=== PATIENT | female | born 1950 | race Caucasian/White ===

== ENCOUNTER → 2017-12-31 07:45 | Outpatient (CLI) | payer MEDICARE, SELFPAY ==
[2017-12-31 08:18] LABS: Alanine Aminotransferase 41 U/L (12-78); Albumin Level 3.9 gm/dL (3.4-5.0); Albumin/Globulin Ratio 1.1 (1.1-1.8); Alkaline Phosphatase 70 U/L (46-116); Anion Gap 8.9 mEq/L (5-15); Aspartate Amino Transferase 20 U/L (15-37); Bilirubin,Total 0.9 mg/dL (0.2-1.0); Blood Urea Nitrogen 17 mg/dL (7-18); Calcium 9.7 mg/dL (8.5-10.1); Carbon Dioxide 31 mmol/L (21.0-32.0); Chloride 105 mmol/L (98-107); Chol/HDL Ratio 2.3 (1-3.5); Cholesterol 126 mg/dL (140-200); Creatinine,Serum 0.96 mg/dL (0.55-1.02); Estimated Glomerular Filt Rate 58 ml/min (>60); GFR (African American) 70 ML/MIN (>60); Globulin 3.4 gm/dl (1.3-3.2); Glucose 101 mg/dL (74-106); HDL Cholesterol 56 mg/dL (29-89); LDL Cholesterol 52 mg/dL (0-130); Potassium 3.9 mmoL/L (3.5-5.1); Sodium 141 mmol/L (136-145); Total Protein,Serum 7.3 gm/dL (6.4-8.2); Triglycerides 90 mg/dL (30-200); VLDL Cholesterol 18 mg/dL (0-40)
[2017-12-31 09:12] LABS: Basophils % 0.7 % (0.1-2.0); Eosinophils # 0.2 K/mm3 (0.0-0.4); Hematocrit 43.3 % (37.0-47.0); Hemoglobin 13.8 g/dL (12.2-16.2); Lymphocytes # 0.8 K/mm3 (0.7-4.5); Lymphocytes % 19.6 K/mm3 (10-50); Mean Corpuscular HGB Conc 31.9 g/dL (31.8-35.4); Mean Corpuscular Volume 100.1 fl (81-99); Mean Platelet Volume 7.4 fl (7.4-10.4); Monocytes # 0.4 K/mm3 (0.1-1.0); Neutrophils # 2.6 K/mm3 (1.8-7.8); Neutrophils % 66.7 % (37.0-80.0); Platelet Count 209 K/mm3 (142-424); Red Blood Count 4.32 M/mm3 (4.20-5.40); Red Cell Distribution Width 13.4 % (11.5-17.5); White Blood Count 3.9 K/mm3 (4.8-10.8)
[2017-12-31 12:51] LABS: Hemoglobin A1C 6.6 % (0.0-7.0)
[2018-01-03 06:20] LABS: ALT (SGPT) P5P 31 IU/L (0-40); Alpha 2-Macroglobulins, Qn 429 mg/dL (110-276); Apolipoprotein A-1 161 mg/dL (116-209); Bilirubin, Total 0.6 mg/dL (0.0-1.2); Fibrosis Score 0.54 (0.00-0.21); GGT 29 IU/L (0-60); Haptoglobin 181 mg/dL (34-200); Necroinflammat Activity Grade A0-A1 (.); Necroinflammat Activity Score 0.21 (0.00-0.17)
== END ==
PROVIDERS: Visit Provider Nurse Practitioner Acute Care
DX: R94.5 Abnormal results of liver function studies (principal); Z79.899 Other long term (current) drug therapy; E11.9 Type 2 diabetes mellitus without complications
CPT/HCPCS: 36415; 80053; 80061; 83036; 85025

== ENCOUNTER → 2018-01-12 10:51 | Outpatient (POV) | payer MEDICARE, SELFPAY | PROVIDERS: Visit Provider Nurse Practitioner Acute Care | DX: Z00.00 Encounter for general adult medical examination without abnormal findings (principal) ==

== ENCOUNTER → 2018-04-29 09:16 | Outpatient (CLI) | payer MEDICARE, SELFPAY ==
[2018-04-29 11:02] LABS: Basophils % 0.9 % (0.1-2.0); Eosinophils # 0.1 K/mm3 (0.0-0.4); Eosinophils % 3.5 % (0.1-12.0); Hematocrit 45.4 % (37.0-47.0); Hemoglobin 14.3 g/dL (12.2-16.2); Lymphocytes # 0.8 K/mm3 (0.7-4.5); Lymphocytes % 20.6 K/mm3 (10-50); Mean Corpuscular HGB Conc 31.5 g/dL (31.8-35.4); Mean Corpuscular Hemoglobin 31.9 pg (27.0-31.2); Mean Corpuscular Volume 101.3 fl (81-99); Mean Platelet Volume 7.5 fl (7.4-10.4); Monocytes # 0.3 K/mm3 (0.1-1.0); Monocytes % 8.4 % (1.7-9.3); Neutrophils # 2.6 K/mm3 (1.8-7.8); Neutrophils % 66.5 % (37.0-80.0); Platelet Count 241 K/mm3 (142-424); Red Blood Count 4.48 M/mm3 (4.20-5.40); Red Cell Distribution Width 13.6 % (11.5-17.5); White Blood Count 3.9 K/mm3 (4.8-10.8)
[2018-04-29 11:28] LABS: Alanine Aminotransferase 34 U/L (12-78); Albumin Level 4.1 gm/dL (3.4-5.0); Albumin/Globulin Ratio 1.4 (1.1-1.8); Alkaline Phosphatase 62 U/L (46-116); Aspartate Amino Transferase 23 U/L (15-37); Blood Urea Nitrogen 18 mg/dL (7-18); Calcium 9.6 mg/dL (8.5-10.1); Carbon Dioxide 27 mmol/L (21.0-32.0); Chloride 106 mmol/L (98-107); Creatinine,Serum 0.88 mg/dL (0.55-1.02); Estimated Glomerular Filt Rate 64 ml/min (>60); GFR (African American) 78 ML/MIN (>60); Globulin 2.9 gm/dl (1.3-3.2); Glucose 93 mg/dL (74-106); Sodium 142 mmol/L (136-145)
== END ==
PROVIDERS: Visit Provider Nurse Practitioner Acute Care
DX: R94.5 Abnormal results of liver function studies (principal)
CPT/HCPCS: 36415; 80053; 85025

== ENCOUNTER → 2018-07-13 08:59 | Outpatient (POV) | payer MEDICARE, SELFPAY | PROVIDERS: Visit Provider Nurse Practitioner Acute Care | DX: Z00.00 Encounter for general adult medical examination without abnormal findings (principal) ==

== ENCOUNTER → 2018-10-29 07:24 | Outpatient (CLI) | payer MEDICARE, SELFPAY ==
[2018-10-29 07:29] LABS: Microscopic, Urine URINE MICROSCOPIC (MICROSCOPIC)
[2018-10-29 07:52] LABS: Basophils % 0.7 % (0.1-2.0); Eosinophils # 0.2 K/mm3 (0.0-0.4); Eosinophils % 5.4 % (0.1-12.0); Hematocrit 40.9 % (37.0-47.0); Hemoglobin 13.2 g/dL (12.2-16.2); Lymphocytes # 1.1 K/mm3 (0.7-4.5); Lymphocytes % 23.5 % (10-50); Mean Corpuscular HGB Conc 32.2 g/dL (31.8-35.4); Mean Corpuscular Volume 102.3 fl (81-99); Mean Platelet Volume 7.1 fl (7.4-10.4); Monocytes # 0.4 K/mm3 (0.1-1.0); Monocytes % 8.2 % (1.7-9.3); Neutrophils # 2.8 K/mm3 (1.8-7.8); Neutrophils % 62.2 % (37.0-80.0); Platelet Count 233 K/mm3 (142-424); Red Cell Distribution Width 13.6 % (11.5-17.5); White Blood Count 4.6 K/mm3 (4.8-10.8)
[2018-10-29 08:02] LABS: Appearance,Urine SL CLOUDY (Clear); Bilirubin,Urine Negative (Negative); Blood, Urine Negative (Negative); Color,Urine YELLOW (Yellow); Glucose,Urine (UA) Negative (Negative); Ketones,Urine Negative (Negative); Leukocyte Esterase,Urine 1+ (Negative); Nitrate,Urine Negative (Negative); PH,Urine 5.5 (5.0-8.5); Protein,Urine Negative (Negative); Specific Gravity, Urine 1.025 (1.005-1.030); Urobilinogen,Urine 0.2 EU/dl (0.2)
[2018-10-29 08:42] LABS: Squamous Epithelial Cell,Urine Occasional #/hpf (0-5); WBC,Urine 20-50 #/hpf (0-3)
[2018-10-29 08:43] LABS: Bacteria,Urine Trace /lpf
[2018-10-29 09:12] LABS: Hemoglobin A1C 6.6 % (0.0-7.0)
[2018-10-29 09:23] LABS: Alanine Aminotransferase 27 U/L (12-78); Albumin Level 3.7 gm/dL (3.4-5.0); Albumin/Globulin Ratio 1.3 (1.1-1.8); Alkaline Phosphatase 67 U/L (46-116); Anion Gap 13.8 mEq/L (5-15); Aspartate Amino Transferase 16 U/L (15-37); Bilirubin,Total 0.7 mg/dL (0.2-1.0); Blood Urea Nitrogen 17 mg/dL (7-18); Calcium 9.3 mg/dL (8.5-10.1); Carbon Dioxide 27 mmol/L (21.0-32.0); Chloride 108 mmol/L (98-107); Chol/HDL Ratio 2.4 (1-3.5); Cholesterol 154 mg/dL (140-200); Estimated Glomerular Filt Rate 55 ml/min (>60); Free T4 (Free Thyroxine) 0.82 ng/dl (0.76-1.46); GFR (African American) 67 ML/MIN (>60); Globulin 2.8 gm/dl (1.3-3.2); Glucose 94 mg/dL (74-106); HDL Cholesterol 63 mg/dL (29-89); LDL Cholesterol 77 mg/dL (0-130); Potassium 3.8 mmoL/L (3.5-5.1); Sodium 145 mmol/L (136-145); Thyroid Stimulating Hormone 2.93 uIU/ml (0.358-3.740); Total Protein,Serum 6.5 gm/dL (6.4-8.2); Triglycerides 71 mg/dL (30-200); VLDL Cholesterol 14 mg/dL (0-40)
[2018-10-31 10:54] LABS: Vitamin D 25 Hydroxy 37.8 ng/mL (30.0-100.0)
[2018-10-31 10:56] LABS: Microalbumin, Urine 64.6 ug/mL (Not Estab.)
== END ==
PROVIDERS: Visit Provider Internal Medicine
DX: E03.9 Hypothyroidism, unspecified (principal); E11.9 Type 2 diabetes mellitus without complications; I10 Essential (primary) hypertension; E78.5 Hyperlipidemia, unspecified; E55.9 Vitamin D deficiency, unspecified; R82.90 Unspecified abnormal findings in urine; Z79.84 Long term (current) use of oral hypoglycemic drugs
CPT/HCPCS: 36415; 80053; 80061; 81001; 82043; 82652; 83036; 84436; 84439; 84443; 85025; 87086; 87088; 87186

== ENCOUNTER → 2018-12-17 08:50 | Outpatient (CLI) | payer MEDICARE, SELFPAY ==
[2018-12-17 09:37] LABS: Basophils % 0.6 % (0.1-2.0); Eosinophils # 0.2 K/mm3 (0.0-0.4); Eosinophils % 4.1 % (0.1-12.0); Hematocrit 43.2 % (37.0-47.0); Lymphocytes # 0.8 K/mm3 (0.7-4.5); Lymphocytes % 20.7 % (10-50); Mean Corpuscular HGB Conc 32.3 g/dL (31.8-35.4); Mean Corpuscular Hemoglobin 32.7 pg (27.0-31.2); Mean Corpuscular Volume 101.2 fl (81-99); Mean Platelet Volume 6.9 fl (7.4-10.4); Monocytes # 0.3 K/mm3 (0.1-1.0); Monocytes % 8.8 % (1.7-9.3); Neutrophils # 2.5 K/mm3 (1.8-7.8); Neutrophils % 65.8 % (37.0-80.0); Platelet Count 221 K/mm3 (142-424); Red Blood Count 4.27 M/mm3 (4.20-5.40); Red Cell Distribution Width 14.1 % (11.5-17.5); White Blood Count 3.8 K/mm3 (4.8-10.8)
[2018-12-17 11:12] LABS: Anion Gap 14.4 mEq/L (5-15); Blood Urea Nitrogen 19 mg/dL (7-18); Carbon Dioxide 28 mmol/L (21.0-32.0); Chloride 106 mmol/L (98-107); Creatinine,Serum 0.89 mg/dL (0.55-1.02); Estimated Glomerular Filt Rate 63 ml/min (>60); GFR (African American) 76 ML/MIN (>60); Glucose 100 mg/dL (74-106); Potassium 4.4 mmoL/L (3.5-5.1); Sodium 144 mmol/L (136-145)
[2018-12-17 11:26] LABS: Hemoglobin A1C 6.6 % (0.0-7.0)
== END ==
PROVIDERS: Visit Provider Internal Medicine
DX: Z01.818 Encounter for other preprocedural examination (principal); E11.9 Type 2 diabetes mellitus without complications; I10 Essential (primary) hypertension; Z79.84 Long term (current) use of oral hypoglycemic drugs
CPT/HCPCS: 36415; 80048; 83036; 85025

== ENCOUNTER → 2019-01-11 09:29 | Outpatient (POV) | payer MEDICARE, SELFPAY | PROVIDERS: Visit Provider Nurse Practitioner Acute Care | DX: Z00.00 Encounter for general adult medical examination without abnormal findings (principal) ==

== ENCOUNTER → 2019-06-21 07:21 | Outpatient (CLI) | payer MEDICARE, SELFPAY ==
[2019-06-21 07:26] LABS: Microscopic, Urine URINE MICROSCOPIC (MICROSCOPIC)
[2019-06-21 07:58] LABS: Appearance,Urine CLEAR (Clear); Bilirubin,Urine Negative (Negative); Blood, Urine TRACE-I (Negative); Color,Urine YELLOW (Yellow); Glucose,Urine (UA) Negative (Negative); Ketones,Urine Negative (Negative); Leukocyte Esterase,Urine TRACE (Negative); Nitrate,Urine Negative (Negative); Protein,Urine Negative (Negative); Specific Gravity, Urine 1.025 (1.005-1.030); Urobilinogen,Urine 0.2 EU/dl (0.2)
[2019-06-21 08:31] LABS: Bacteria,Urine 1+ /lpf; RBC,Urine Occasional #/hpf (0-3)
[2019-06-21 08:33] LABS: Basophils % 0.5 % (0.1-2.0); Eosinophils # 0.2 K/mm3 (0.0-0.4); Eosinophils % 3.9 % (0.1-12.0); Hematocrit 40.3 % (37.0-47.0); Hemoglobin 12.7 g/dL (12.2-16.2); Lymphocytes # 1.2 K/mm3 (0.7-4.5); Lymphocytes % 27.6 % (10-50); Mean Corpuscular HGB Conc 31.5 g/dL (31.8-35.4); Mean Corpuscular Hemoglobin 32.4 pg (27.0-31.2); Mean Corpuscular Volume 102.9 fl (81-99); Mean Platelet Volume 7.2 fl (7.4-10.4); Monocytes # 0.4 K/mm3 (0.1-1.0); Monocytes % 8.9 % (1.7-9.3); Neutrophils # 2.6 K/mm3 (1.8-7.8); Neutrophils % 59.1 % (37.0-80.0); Platelet Count 220 K/mm3 (142-424); Red Blood Count 3.92 M/mm3 (4.20-5.40); Red Cell Distribution Width 13.6 % (11.5-17.5); White Blood Count 4.4 K/mm3 (4.8-10.8)
[2019-06-21 11:04] LABS: Hemoglobin A1C 6.5 % (0.0-7.0)
[2019-06-21 17:33] LABS: Alanine Aminotransferase 32 U/L (12-78); Albumin/Globulin Ratio 1.5 (1.1-1.8); Alkaline Phosphatase 54 U/L (46-116); Anion Gap 12.9 mEq/L (5-15); Aspartate Amino Transferase 20 U/L (15-37); Bilirubin,Total 0.9 mg/dL (0.2-1.0); Blood Urea Nitrogen 22 mg/dL (7-18); Calcium 9.9 mg/dL (8.5-10.1); Carbon Dioxide 27 mmol/L (21.0-32.0); Chloride 108 mmol/L (98-107); Chol/HDL Ratio 2.7 (1-3.5); Cholesterol 131 mg/dL (140-200); Creatinine,Serum 0.87 mg/dL (0.55-1.02); Estimated Glomerular Filt Rate 65 ml/min (>60); Free T4 (Free Thyroxine) 0.87 ng/dl (0.76-1.46); GFR (African American) 78 ML/MIN (>60); Globulin 2.6 gm/dl (1.3-3.2); Glucose 88 mg/dL (74-106); HDL Cholesterol 49 mg/dL (29-89); LDL Cholesterol 56 mg/dL (0-130); Potassium 3.9 mmoL/L (3.5-5.1); Sodium 144 mmol/L (136-145); Thyroid Stimulating Hormone 4.22 uIU/ml (0.358-3.740); Total Protein,Serum 6.6 gm/dL (6.4-8.2); Triglycerides 129 mg/dL (30-200); VLDL Cholesterol 26 mg/dL (0-40)
[2019-06-22 06:56] LABS: Vitamin D 25 Hydroxy 45.6 ng/mL (30.0-100.0)
[2019-06-23 00:28] LABS: Microalbumin, Urine 7.5 ug/mL (Not Estab.)
== END ==
PROVIDERS: Visit Provider Internal Medicine
DX: I10 Essential (primary) hypertension (principal); E11.9 Type 2 diabetes mellitus without complications; E04.9 Nontoxic goiter, unspecified; E78.5 Hyperlipidemia, unspecified; R94.5 Abnormal results of liver function studies; Z79.84 Long term (current) use of oral hypoglycemic drugs; D72.819 Decreased white blood cell count, unspecified
CPT/HCPCS: 36415; 80053; 80061; 81001; 82043; 82652; 83036; 84439; 84443; 85025; 87086

== ENCOUNTER → 2019-12-24 08:48 | Outpatient (CLI) | payer MEDICARE, SELFPAY ==
[2019-12-24 08:55] LABS: Microscopic, Urine URINE MICROSCOPIC (MICROSCOPIC)
[2019-12-24 09:37] LABS: Basophils % 0.9 % (0.1-2.0); Eosinophils # 0.2 K/mm3 (0.0-0.4); Eosinophils % 4.7 % (0.1-12.0); Hematocrit 41.3 % (37.0-47.0); Hemoglobin 13.3 g/dL (12.2-16.2); Lymphocytes # 0.8 K/mm3 (0.7-4.5); Lymphocytes % 21.6 % (10-50); Mean Corpuscular HGB Conc 32.1 g/dL (31.8-35.4); Mean Corpuscular Hemoglobin 32.8 pg (27.0-31.2); Mean Platelet Volume 8.1 fl (7.4-10.4); Monocytes # 0.3 K/mm3 (0.1-1.0); Monocytes % 9.2 % (1.7-9.3); Neutrophils # 2.3 K/mm3 (1.8-7.8); Neutrophils % 63.7 % (37.0-80.0); Platelet Count 220 K/mm3 (142-424); Red Blood Count 4.05 M/mm3 (4.20-5.40); Red Cell Distribution Width 13.5 % (11.5-17.5); White Blood Count 3.6 K/mm3 (4.8-10.8)
[2019-12-24 11:15] LABS: Appearance,Urine CLEAR (Clear); Bilirubin,Urine Negative (Negative); Blood, Urine Negative (Negative); Color,Urine YELLOW (Yellow); Glucose,Urine (UA) Negative (Negative); Ketones,Urine Negative (Negative); Leukocyte Esterase,Urine TRACE (Negative); Nitrate,Urine Negative (Negative); Protein,Urine Negative (Negative); Specific Gravity, Urine >= 1.030 (1.005-1.030); Urobilinogen,Urine 0.2 EU/dl (0.2)
[2019-12-24 11:23] LABS: Amorphous Sediment,Urine 1+ /lpf; Calcium Oxalate Crystals,Urine 1+ /lpf; Transitional Epi Cells,Urine OCC #/lpf (0-3)
[2019-12-24 11:33] LABS: Alanine Aminotransferase 22 U/L (12-78); Albumin Level 4.3 g/dl (3.5-5.0); Albumin/Globulin Ratio 1.8 (1.1-1.8); Alkaline Phosphatase 59 U/L (38-126); Anion Gap 11.4 mEq/L (5-15); Aspartate Amino Transferase 29 U/L (14-36); Blood Urea Nitrogen 21 mg/dl (7-17); Calcium 10.2 mg/dl (8.4-10.2); Carbon Dioxide 28 mmol/L (22.0-30.0); Chloride 104 mmol/L (98-107); Chol/HDL Ratio 2.6 (1-3.5); Cholesterol 134 mg/dl (140-200); Estimated Glomerular Filt Rate 62 ml/min (>60); GFR (African American) 75 ML/MIN (>60); Globulin 2.4 g/dL (1.3-3.2); Glucose 96 mg/dl (74-100); HDL Cholesterol 51 mg/dl (40-60); Potassium 4.4 mmoL/L (3.5-5.1); Sodium 139 mmol/L (136-145); Total Protein,Serum 6.7 g/dl (6.3-8.2); Triglycerides 107 mg/dl (30-150); VLDL Cholesterol 21 mg/dL (0-40)
[2019-12-24 11:44] LABS: Direct LDL Cholesterol 70.58 mg/dL (100-129)
[2019-12-24 12:03] LABS: Thyroid Stimulating Hormone 3.32 uIU/mL (0.465-4.68)
[2019-12-24 13:33] LABS: Hemoglobin A1C 6.5 % (4.0-6.0)
[2019-12-25 16:06] LABS: Microalbumin, Urine 13.3 ug/mL (Not Estab.)
== END ==
PROVIDERS: Visit Provider Internal Medicine
DX: E11.9 Type 2 diabetes mellitus without complications (principal); I10 Essential (primary) hypertension; E03.9 Hypothyroidism, unspecified; E66.9 Obesity, unspecified; R94.5 Abnormal results of liver function studies; K75.4 Autoimmune hepatitis; K21.9 Gastro-esophageal reflux disease without esophagitis; F45.8 Other somatoform disorders; D72.819 Decreased white blood cell count, unspecified; Z79.84 Long term (current) use of oral hypoglycemic drugs
CPT/HCPCS: 36415; 80053; 80061; 81001; 82043; 83036; 84439; 84443; 85025; 87086; 87088; 87186

== ENCOUNTER → 2020-06-12 09:15 | Outpatient (CLI) | payer MEDICARE, SELFPAY ==
[2020-06-12 09:47] LABS: Basophils % 0.5 % (0.1-2.0); Eosinophils # 0.2 K/mm3 (0.0-0.4); Eosinophils % 3.2 % (0.1-12.0); Hematocrit 41.2 % (37.0-47.0); Lymphocytes # 0.8 K/mm3 (0.7-4.5); Lymphocytes % 18.2 % (10-50); Mean Corpuscular Hemoglobin 34.4 pg (27.0-31.2); Mean Corpuscular Volume 101.3 fl (81-99); Mean Platelet Volume 7.6 fl (7.4-10.4); Monocytes # 0.4 K/mm3 (0.1-1.0); Monocytes % 8.3 % (1.7-9.3); Neutrophils # 3.2 K/mm3 (1.8-7.8); Neutrophils % 69.8 % (37.0-80.0); Platelet Count 188 K/mm3 (142-424); Red Blood Count 4.07 M/mm3 (4.20-5.40); Red Cell Distribution Width 13.9 % (11.5-17.5); White Blood Count 4.5 K/mm3 (4.8-10.8)
[2020-06-12 10:28] LABS: Alanine Aminotransferase 26 U/L (12-78); Albumin Level 4.3 g/dl (3.5-5.0); Albumin/Globulin Ratio 1.7 (1.1-1.8); Alkaline Phosphatase 70 U/L (38-126); Anion Gap 13.9 mEq/L (5-15); Aspartate Amino Transferase 31 U/L (14-36); Bilirubin,Total 1.4 mg/dl (0.2-1.3); Blood Urea Nitrogen 17 mg/dl (7-17); Carbon Dioxide 27 mmol/L (22.0-30.0); Chloride 105 mmol/L (98-107); Estimated Glomerular Filt Rate 71 ml/min (>60); GFR (African American) 86 ML/MIN (>60); Globulin 2.5 g/dL (1.3-3.2); Glucose 106 mg/dl (74-100); Potassium 3.9 mmoL/L (3.5-5.1); Sodium 142 mmol/L (136-145); Total Protein,Serum 6.8 g/dl (6.3-8.2)
[2020-06-12 11:38] LABS: Hemoglobin A1C 6.7 % (4.0-6.0)
== END ==
PROVIDERS: Internal Medicine Gastroenterology; Visit Provider Internal Medicine
DX: E11.9 Type 2 diabetes mellitus without complications (principal); I10 Essential (primary) hypertension; E78.5 Hyperlipidemia, unspecified; E66.9 Obesity, unspecified; R94.5 Abnormal results of liver function studies; K21.9 Gastro-esophageal reflux disease without esophagitis
CPT/HCPCS: 36415; 80053; 83036; 85025

== ENCOUNTER → 2020-12-12 08:30 | Outpatient (CLI) | payer MEDICARE, SELFPAY ==
[2020-12-12 08:50] LABS: Basophils % 0.8 % (0.1-2.0); Eosinophils # 0.3 K/mm3 (0.0-0.4); Eosinophils % 6.2 % (0.1-12.0); Hematocrit 43.8 % (37.0-47.0); Hemoglobin 14.2 g/dL (12.2-16.2); Lymphocytes # 0.9 K/mm3 (0.7-4.5); Lymphocytes % 19.4 % (10-50); Mean Corpuscular HGB Conc 32.4 g/dL (31.8-35.4); Mean Corpuscular Hemoglobin 32.7 pg (27.0-31.2); Mean Platelet Volume 7.5 fl (7.4-10.4); Monocytes # 0.4 K/mm3 (0.1-1.0); Monocytes % 9.2 % (1.7-9.3); Neutrophils # 2.8 K/mm3 (1.8-7.8); Neutrophils % 64.3 % (37.0-80.0); Platelet Count 219 K/mm3 (142-424); Red Blood Count 4.34 M/mm3 (4.20-5.40); Red Cell Distribution Width 13.6 % (11.5-17.5); White Blood Count 4.4 K/mm3 (4.8-10.8)
[2020-12-12 09:51] LABS: Chloride 106 mmol/L (98-107)
[2020-12-12 09:52] LABS: Sodium 141 mmol/L (136-145)
[2020-12-12 09:54] LABS: Alanine Aminotransferase 26 U/L (12-78); Albumin Level 4.3 g/dl (3.5-5.0); Albumin/Globulin Ratio 1.6 (1.1-1.8); Alkaline Phosphatase 64 U/L (38-126); Aspartate Amino Transferase 29 U/L (14-36); Bilirubin,Total 1.1 mg/dl (0.2-1.3); Blood Urea Nitrogen 21 mg/dl (7-17); Carbon Dioxide 29 mmol/L (22.0-30.0); Estimated Glomerular Filt Rate 62 ml/min (>60); GFR (African American) 75 ML/MIN (>60); Globulin 2.7 g/dL (1.3-3.2)
[2020-12-12 09:55] LABS: Calcium 10.3 mg/dl (8.4-10.2); Glucose 117 mg/dl (74-100)
== END ==
PROVIDERS: Visit Provider Nurse Practitioner Family
DX: K75.4 Autoimmune hepatitis (principal); K21.9 Gastro-esophageal reflux disease without esophagitis; K22.4 Dyskinesia of esophagus; R14.0 Abdominal distension (gaseous)
CPT/HCPCS: 36415; 80053; 85025

== ENCOUNTER → 2021-01-01 09:54 | Outpatient (POV) | payer MEDICARE, SELFPAY | PROVIDERS: Visit Provider Nurse Practitioner Family | DX: Z00.00 Encounter for general adult medical examination without abnormal findings (principal) ==

== ENCOUNTER → 2021-01-05 08:39 | Outpatient (CLI) | payer MEDICARE, SELFPAY ==
[2021-01-05 08:49] LABS: Microscopic, Urine URINE MICROSCOPIC (MICROSCOPIC)
[2021-01-05 09:19] LABS: Appearance,Urine CLEAR (Clear); Bilirubin,Urine Negative (Negative); Blood, Urine Negative (Negative); Color,Urine YELLOW (Yellow); Glucose,Urine (UA) Negative (Negative); Ketones,Urine Negative (Negative); Leukocyte Esterase,Urine 1+ (Negative); Nitrate,Urine Negative (Negative); PH,Urine 5.5 (5.0-8.5); Protein,Urine Negative (Negative); Specific Gravity, Urine >= 1.030 (1.005-1.030); Urobilinogen,Urine 0.2 EU/dl (0.2)
[2021-01-05 09:39] LABS: Bacteria,Urine 1+ /lpf
[2021-01-05 10:09] LABS: Hemoglobin A1C 7.3 % (4.0-6.0)
[2021-01-05 10:32] LABS: 25-OH Vitamin D, Total 47.4 ng/mL (30-100)
[2021-01-05 11:57] LABS: Free T4 (Free Thyroxine) 0.92 ng/dl (0.78-2.19)
[2021-01-05 12:17] LABS: Thyroid Stimulating Hormone 4.27 uIU/mL (0.465-4.68)
[2021-01-05 12:52] LABS: Vitamin B12 778 pg/mL (239-931)
[2021-01-05 12:56] LABS: Folate > 20.00 ng/mL
[2021-01-09 08:37] LABS: Cholesterol 148 mg/dl (140-200); HDL Cholesterol 50 mg/dl (40-60); Triglycerides 174 mg/dl (30-150); VLDL Cholesterol 35 mg/dL (0-40)
[2021-01-09 08:47] LABS: Direct LDL Cholesterol 66.66 mg/dL (100-129)
== END ==
PROVIDERS: Visit Provider Internal Medicine
DX: E03.9 Hypothyroidism, unspecified (principal); E11.9 Type 2 diabetes mellitus without complications; E78.5 Hyperlipidemia, unspecified; E55.9 Vitamin D deficiency, unspecified; G62.9 Polyneuropathy, unspecified; R82.90 Unspecified abnormal findings in urine; Z79.84 Long term (current) use of oral hypoglycemic drugs
CPT/HCPCS: 36415; 80061; 81001; 82043; 82306; 82607; 82746; 83036; 84439; 84443; 87086; 87088; 87186

== ENCOUNTER → 2021-05-23 08:18 | Outpatient (CLI) | payer MEDICARE, SELFPAY | PROVIDERS: Visit Provider Internal Medicine Gastroenterology | DX: Z01.812 Encounter for preprocedural laboratory examination (principal); Z20.822 Contact with and (suspected) exposure to COVID-19; Z12.11 Encounter for screening for malignant neoplasm of colon | CPT/HCPCS: U0003 ==

== ENCOUNTER 2021-05-25 07:26 | Day surgery (SDC) | payer MEDICARE, SELFPAY ==
[2021-05-22 09:57] VITALS: BMI 30.9
[2021-05-25] VITALS (7 sets, daily range): BP systolic 118–158; BP diastolic 74–92; PULSE 66–90; RESP 16–20; TEMP 36.1; O2SAT 92–99
[2021-05-25 08:03] LABS: POC Glucose,Bedside 126 (70-110)
--- NOTE | 2021-05-25 08:30 | HMH.PROC ---
[facility] Procedure Note Procedure Note:: Colonoscopy Procedure Report: Colonoscopy with cold snare polypectomy Endoscopist: Chris Scott II, MD Referring physician: Jimi Mcdermott MD Date of Procedure: May 25, 2021 Equipment: Olympus 190 variable stiffness pediatric colonoscope Sedation: MAC sedation Indication: Mrs. Velasquez is a 70-year-old female who is here for follow-up screening/surveillance colonoscopy. The patient does have a personal history of colon polyps. She had a colonoscopy in May 2016 and had an adenomatous polyp removed. The patient does have a history of intermittent esophageal spasm. She also reports some bowel frequency usually in the mornings over 2 hours. She starts out with a firm bowel movement and over a couple of hours she goes 3-4 times and this may end in looser bowel movement. The patient reports no rectal bleeding or mucus. She does get some occasional lower abdominal discomfort and at the same time she has some back discomfort. She has had an intentional weight loss of 14 pounds. She reports no blood or mucus with her bowel movements. She reports no family history of colon cancer. The patient does have a history of autoimmune hepatitis (stage II fibrosis) and some NAFLD (nonalcoholic fatty liver disease). She is on low-dose prednisone (5 mg) with excellent control. She also takes vitamin E and alpha lipoic acid. Procedure: Prior to the procedure, a history and physical exam was performed, and patient's medications and allergies were reviewed. The risks, benefits and alternatives of the sedation and procedure were discussed with the patient. All questions were answered and informed consent was obtained. The patient was brought to the procedure room. Patient identification and proposed procedure were verified by the physician and the nurse. The patient was placed in a left lateral decubitus position and the scope was passed under direct vision. Throughout the procedure, the patient's blood pressure, pulse, and oxygen saturations were monitored continuously. The colonoscopy was accomplished without difficulty. The patient tolerated the procedure well. Findings: On digital rectal examination there was normal rectal tone. There were no external hemorrhoids. The colonoscope was introduced through the anal canal to the rectum and advanced to the cecum. The ileocecal valve and appendiceal orifice were identified. The scope was advanced a short distance into the ileum which appeared grossly normal. The scope was then withdrawn into the colon. There were 5 colon polyps (cecum x2 (2 and 4 mm), descending x1 (3 mm) and sigmoid x2 (3 and 3 mm)) which were all removed via cold snare polypectomy. The remaining cecum, ascending, transverse, descending, sigmoid and rectum were grossly normal. There were no other mucosal abnormalities identified. Upon retroflexion within the rectum there were grade 1-2 internal hemorrhoids.The preparation was excellent throughout with Sheffield Preparation Score of 9. The cecal time was 12 minutes. Impression: 1. Colonic polyps x5 2. Grade 1-2 internal hemorrhoids Plan: I will follow up the polyp pathology and recommend repeat colonoscopy again in 3-5 years based upon the polyp histology. I would encourage bulking fiber supplementation on a long-term daily maintenance basis.
--- NOTE | 2021-05-25 08:47 | HMH.ANESCL ---
[facility] Anesthesia Checklist - Structural Data Admitted From: Home Planned Operative Procedure/s: colonoscopy Consent for Planned Operative Procedure(s) Verified: Yes - Airway Assessment C-Spine Mobility Assessed: Yes TMJ Mobility Assessed: Yes Dentition: Good Dentition - Neurological Assessment Level of Consciousness: Awake, Alert, Appropriate - Anesthesia Plan Anesthesia Risk discussed: Yes Anesthesia Plan: Verified ASA Class: III Anesthesia Type: MAC [facility] History I have reviewed the patient's past medical history: Yes Medical History: Reports:: Diabetes Mellitus Type 2, Hyperlipidemia, Hypertension Denies:: Cancer, Diabetes Mellitus Type 1, Internal Pacemaker, MRSA, Seizures *Have you ever received a pneumonia vaccine?: Yes *Have you received a flu vaccine this season?: Yes Anesthesia experience/problems:: none Laterality Cases: Bilateral: Carpal Tunnel Release, Cataract Other Surgeries: No: Pacemaker Amputation: No Fractures: No - *Social History Last grade of school completed: Some college Smoking Status: Never smoker Alcohol Intake: current Alcohol Intake Frequency:: holidays/special occasions only Substance Use Type: denies use *Occupational Status:: retired Housing: house Household Members: spouse *Travel in the last 8 weeks: None Family Hx:: Cancer, Diabetes, Heart Attack, Hyperlipidemia, Hypertension, Stroke
== END 2021-05-25 09:55 | disposition home or self-care (01) ==
LOC: OUTP 07:29
PROVIDERS: PCP Internal Medicine; Visit Provider Internal Medicine Gastroenterology
PROC: 0DJD8ZZ Inspection of Lower Intestinal Tract, Via Natural or Artificial Opening Endoscopic (ICD-10-PCS; CPT 45378; principal; 2021-05-25 08:30)
DX: Z12.11 Encounter for screening for malignant neoplasm of colon (principal); K63.5 Polyp of colon; K64.0 First degree hemorrhoids; K75.4 Autoimmune hepatitis; K76.0 Fatty (change of) liver, not elsewhere classified; E11.9 Type 2 diabetes mellitus without complications; E78.5 Hyperlipidemia, unspecified; I10 Essential (primary) hypertension; Z79.899 Other long term (current) drug therapy; Z80.9 Family history of malignant neoplasm, unspecified; Z82.3 Family history of stroke; Z83.438 Family history of other disorder of lipoprotein metabolism and other lipidemia; Z82.49 Family history of ischemic heart disease and other diseases of the circulatory system
CPT/HCPCS: 45385; 82962; 88305

== ENCOUNTER → 2021-07-17 08:01 | Outpatient (CLI) | payer MEDICARE, SELFPAY ==
[2021-07-17 08:46] LABS: Basophils % 0.3 % (0.1-2.0); Eosinophils # 0.1 K/mm3 (0.0-0.4); Hematocrit 46.9 % (37.0-47.0); Hemoglobin 15.3 g/dL (12.2-16.2); Lymphocytes # 0.9 K/mm3 (0.7-4.5); Lymphocytes % 7.9 % (10-50); Mean Corpuscular HGB Conc 32.5 g/dL (31.8-35.4); Mean Corpuscular Hemoglobin 33.5 pg (27.0-31.2); Mean Corpuscular Volume 103.1 fl (81-99); Mean Platelet Volume 7.6 fl (7.4-10.4); Monocytes # 0.6 K/mm3 (0.1-1.0); Monocytes % 5.2 % (1.7-9.3); Neutrophils # 9.4 K/mm3 (1.8-7.8); Neutrophils % 85.6 % (37.0-80.0); Platelet Count 323 K/mm3 (142-424); Red Blood Count 4.55 M/mm3 (4.20-5.40); Red Cell Distribution Width 13.2 % (11.5-17.5); White Blood Count 10.9 K/mm3 (4.8-10.8)
[2021-07-17 08:50] LABS: MANUAL DIFFERENTIAL MANUAL DIFFERENTIAL (MANUAL DIFF)
[2021-07-17 09:13] LABS: Alanine Aminotransferase 41 U/L (12-78); Albumin Level 4.4 g/dl (3.5-5.0); Albumin/Globulin Ratio 1.6 (1.1-1.8); Alkaline Phosphatase 80 U/L (38-126); Anion Gap 13.8 mEq/L (5-15); Aspartate Amino Transferase 36 U/L (14-36); Bilirubin,Total 1.3 mg/dl (0.2-1.3); Blood Urea Nitrogen 25 mg/dl (7-17); Calcium 10.7 mg/dl (8.4-10.2); Carbon Dioxide 27 mmol/L (22.0-30.0); Chloride 100 mmol/L (98-107); Estimated Glomerular Filt Rate 71 ml/min (>60); GFR (African American) 86 ML/MIN (>60); Globulin 2.7 g/dL (1.3-3.2); Glucose 129 mg/dl (74-100); Potassium 4.8 mmoL/L (3.5-5.1); Sodium 136 mmol/L (136-145); Total Protein,Serum 7.1 g/dl (6.3-8.2)
[2021-07-17 09:34] LABS: Lymphocytes % 10 % (10-50); Monocytes % 8 % (2-9); Neutrophils % 82 % (42-76); Total Cells Counted 100
[2021-07-17 09:35] LABS: Macrocytosis 1+; Platelet Estimate Normal
[2021-07-17 10:41] LABS: Hemoglobin A1C 6.8 % (4.0-6.0)
== END ==
PROVIDERS: Internal Medicine; Visit Provider Nurse Practitioner Family
DX: K75.4 Autoimmune hepatitis (principal); K22.4 Dyskinesia of esophagus; K30 Functional dyspepsia; K76.0 Fatty (change of) liver, not elsewhere classified; E11.9 Type 2 diabetes mellitus without complications; Z79.84 Long term (current) use of oral hypoglycemic drugs
CPT/HCPCS: 36415; 80053; 83036; 85007; 85025

== ENCOUNTER 2022-02-17 09:52 | Emergency (ER) | payer MEDICARE, SELFPAY ==
[2022-02-17 09:53] VITALS: BP 122/75; PULSE 75; RESP 16; TEMP 36.8; O2SAT 96; BMI 29.9
[2022-02-17 10:00] VITALS: BP 122/75; PULSE 75; RESP 16; TEMP 36.8; O2SAT 96; BMI 29.9
--- NOTE | 2022-02-17 10:02 | XR_ITS ---
PROCEDURE INFORMATION: Exam: XR Left Hand Exam date and time: 02/17/2022 10:18 AM Age: 71 years old Clinical indication: Pain; Finger(s); Left; Additional info: Injured pinky finger TECHNIQUE: Imaging protocol: XR Left hand. Views: 3 or more views. COMPARISON: No relevant prior studies available. FINDINGS: Bones/joints: Acute minimally displaced intra-articular fracture involving the proximal radial aspect of the 5th proximal phalanx. Degenerative change. Soft tissues: No radiopaque foreign body. IMPRESSION: Acute minimally displaced intra-articular fracture involving the proximal radial aspect of the 5th proximal phalanx.
--- NOTE | 2022-02-17 10:16 | HMH.EDUTC ---
[facility] Disposition Clinical Impression: Fracture of distal phalanx of finger of left hand Disposition: Home, Self-Care Condition on Discharge: Good Instructions: DI for Finger Fracture Additional Instructions: follow up with ortho rest Ice with cold pack for 20 minutes remove may repeat for comfort every hour splint for support and swelling no less in the shower. Be sure not too tight but not to lose either Elevate with hand above your heart as much as possible to help reduce swelling and therefore pain Ibuprofen every 6 hours as needed for pain or inflammation. If needs something more you can take Tylenol every 4 hours as needed as long as her primary care has told he was okayed for you to take both. If improving any do not need to follow-up you can bring begin exercising 2-3 weeks after injury. Follow-up immediately if new or worsening symptoms or no noticeable improvement over the next 3-5 days. Referrals: Jimi Mcdermott [Primary Care Provider] - Steve Mojica MD [Staff Physician] - Time of Disposition: 10:40 Medical Decision Making - Nathan Inquiry Pt receiving controlled substance: No Vital Signs: 02/17/22 09:53 02/17/22 10:00 Temperature 98.3 F 98.3 F Temperature Source Oral Oral Pulse Rate [Radial] 75 75 Respiratory Rate 16 16 Blood Pressure [Right Arm] 122/75 122/75 Blood Pressure Mean [Right Arm] 90 90 Blood Pressure Source [Right Arm] Automatic Cuff Blood Pressure Position [Right Arm] Sitting Sitting 02 Sat by Pulse Oximetry 96 96 Oxygen Delivery Method Room Air Room Air Orders (Tests/Meds): ORDERS Category Date Time Status XR hand LT min 3V Stat Exams 02/17/22 10:02 Taken [facility] HPI - General Chief complaint: Urgent Treatment Center Stated complaint: left pinky finger pain Time Seen by Provider: 02/17/22 10:17 Mode of Arrival: Ambulatory Source of Information: Patient Limitations: No Limitations Description of Symptoms (Recalled from Triage Doc. by RN): pt reports injury to lt 5th finger yesterday, playing with dogs and his head hit her hand and injured finger. c/o pain, swelling, bruising. - History of Present Illness Provider Complaint: 71 yr old female presnts for left pinky pain playing with dogs and his head hit her hand and injured finger. c/o pain, swelling, bruising. - Related Data Home Medications Medication Instructions Recorded Confirmed Atorvastatin Calcium [Atorvastatin 20 mg PO DAILY 11/01/18 05/25/21 20mg Tab] Fluticasone Propionate [Flonase 2 spr NS DAILY 11/01/18 05/25/21 50mcg nasal spray 16gm] Metformin HCl 500 mg PO BID 11/01/18 05/25/21 Metoprolol Succinate 25 mg PO DAILY 11/01/18 05/25/21 Omeprazole [Omeprazole 40mg 40 mg PO DAILY 11/01/18 05/25/21 Capsule] lisinopriL [Lisinopril 2.5mg Tab] 2.5 mg PO DAILY 11/01/18 05/25/21 predniSONE [Prednisone 5mg 5 mg PO DAILY 11/01/18 05/25/21 Tab] Alpha Lipoic Acid 200 mg PO DAILY 05/22/21 05/25/21 Aspirin [Lo-Dose Aspirin EC] 81 mg PO DAILY 05/22/21 05/25/21 Calcium Carbonate/Vitamin D3 30 mg PO DAILY 05/22/21 05/25/21 [Calcium 500 mg Chewable Tablet] Cholecalciferol (Vitamin D3) 25 mcg PO DAILY 05/22/21 05/25/21 [Vitamin D3] L.acidoph,Paracasei, B.lactis 1 tab PO DAILY 05/22/21 05/25/21 [Probiotic] Multivitamin 1 each PO DAILY 05/22/21 05/25/21 Vitamin E Acid Succinate [Vitamin 180 mg PO DAILY 05/22/21 05/25/21 E 400 Unit Tab] flaxseed oiL [Flaxseed Oil] 1,000 mg PO DAILY 05/22/21 05/25/21 Allergies Allergy/AdvReac Type Severity Reaction Status Date / Time Cephalosporins Allergy Verified 05/22/21 09:34 meperidine [From Demerol] Allergy Verified 05/22/21 09:34 Sulfa (Sulfonamide Allergy Verified 05/22/21 09:34 Antibiotics) Tetracyclines Allergy Verified 05/22/21 09:34 [facility] History - Hepatitis A Screen Attestation statement:: This patient has been screened for Hepatitis A risk factors. I have reviewed the patient's past medical history: Yes Med
[2022-02-17 10:40] VITALS: BP 122/75; PULSE 75; RESP 16; TEMP 36.8; O2SAT 96
== END 2022-02-17 10:45 | disposition home or self-care (01) ==
PROVIDERS: Emergency Provider Nurse Practitioner Family; PCP Internal Medicine
DX: S62.637A Displaced fracture of distal phalanx of left little finger, initial encounter for closed fracture (principal); I10 Essential (primary) hypertension; E78.5 Hyperlipidemia, unspecified; E11.9 Type 2 diabetes mellitus without complications; Z79.51 Long term (current) use of inhaled steroids; Z79.52 Long term (current) use of systemic steroids; Z79.82 Long term (current) use of aspirin; Z88.2 Allergy status to sulfonamides; Z88.8 Allergy status to other drugs, medicaments and biological substances; Z82.49 Family history of ischemic heart disease and other diseases of the circulatory system; Z80.9 Family history of malignant neoplasm, unspecified; Z83.3 Family history of diabetes mellitus; Z83.438 Family history of other disorder of lipoprotein metabolism and other lipidemia
CPT/HCPCS: 29125; G0463; 73130; 99212

== ENCOUNTER → 2022-02-22 11:13 | Outpatient (CLI) | payer MEDICARE, SELFPAY ==
--- NOTE | 2022-02-22 11:17 | XR_ITS ---
FINAL REPORT CLINICAL HISTORY: F/U LT 5TH finger fx COMPARISON: February 17, 2022 FINDINGS: LEFT HAND 3 views were obtained. There is a nondisplaced fracture of the proximal radial aspect of the 5th proximal phalanx. The fracture appears stable. There is no significant callus formation. The joint spaces are intact. There is no soft tissue abnormality. IMPRESSION: Stable 5th proximal phalanx fracture. No new abnormality identified. Reviewed, Interpreted and Dictated by Fermin Cason III, MD Transcribed by Jyothi Oneal Authenticated by Fermin Cason III, MD on 02/22/2022 12:49:17 PM [facility]
== END ==
PROVIDERS: PCP Internal Medicine; Visit Provider Orthopaedic Surgery
DX: S62.619A Displaced fracture of proximal phalanx of unspecified finger, initial encounter for closed fracture (principal)
CPT/HCPCS: 73130

== ENCOUNTER → 2022-03-08 13:03 | Outpatient (CLI) | payer MEDICARE, SELFPAY ==
--- NOTE | 2022-03-08 13:08 | XR_ITS ---
FINAL REPORT CLINICAL HISTORY: f/u lt 5th finger fx COMPARISON: 02/22/2022 FINDINGS: LEFT HAND Three views demonstrate an oblique, intra-articular fracture through the lateral base of the 5th proximal phalanx. Fracture line is still visible and has not significantly changed. The visualized joint spaces are normally aligned. The soft tissues are unremarkable. IMPRESSION: No significant change in fracture of the base of the 5th proximal phalanx. Reviewed, Interpreted and Dictated by Jeffery Watkins MD Transcribed by Wendi Werner Authenticated by Jeffery Watkins MD on 03/08/2022 04:03:27 PM [facility]
== END ==
PROVIDERS: PCP Internal Medicine; Visit Provider Orthopaedic Surgery
DX: S62.637A Displaced fracture of distal phalanx of left little finger, initial encounter for closed fracture (principal)
CPT/HCPCS: 73130

== ENCOUNTER → 2022-03-29 10:42 | Outpatient (CLI) | payer MEDICARE, SELFPAY ==
--- NOTE | 2022-03-29 10:45 | XR_ITS ---
FINAL REPORT CLINICAL HISTORY: finger fx COMPARISON: March 08, 2022 FINDINGS: AP, lateral and oblique views of the right hand were obtained. There has been no significant interval change in the intra-articular fracture of the base of the 5th proximal phalanx. There is mild degenerative joint disease. The soft tissues are normal. IMPRESSION: No significant interval change in fracture of the base of the 5th proximal phalanx. Reviewed, Interpreted and Dictated by Anuja Feliciano MD Transcribed by Jyothi Oneal Authenticated by Anuja Feliciano MD on 03/29/2022 01:01:25 PM [facility]
== END ==
PROVIDERS: PCP Internal Medicine; Visit Provider Orthopaedic Surgery
DX: S62.647D Nondisplaced fracture of proximal phalanx of left little finger, subsequent encounter for fracture with routine healing (principal)
CPT/HCPCS: 73130

== ENCOUNTER → 2022-04-23 07:46 | Outpatient (CLI) | payer MEDICARE, SELFPAY ==
[2022-04-23 08:34] LABS: Microscopic, Urine URINE MICROSCOPIC (MICROSCOPIC)
[2022-04-23 08:57] LABS: Basophils % 0.7 % (0.1-2.0); Eosinophils # 0.2 K/mm3 (0.0-0.4); Eosinophils % 3.1 % (0.1-12.0); Hematocrit 42.7 % (37.0-47.0); Hemoglobin 13.8 g/dL (12.2-16.2); Lymphocytes # 0.6 K/mm3 (0.7-4.5); Lymphocytes % 9.7 % (10-50); Mean Corpuscular HGB Conc 32.3 g/dL (31.8-35.4); Mean Corpuscular Hemoglobin 34.1 pg (27.0-31.2); Mean Corpuscular Volume 105.4 fl (81-99); Mean Platelet Volume 7.9 fl (7.4-10.4); Monocytes # 0.4 K/mm3 (0.1-1.0); Monocytes % 7.1 % (1.7-9.3); Neutrophils # 4.7 K/mm3 (1.8-7.8); Neutrophils % 79.3 % (37.0-80.0); Platelet Count 199 K/mm3 (142-424); Red Blood Count 4.05 M/mm3 (4.20-5.40); Red Cell Distribution Width 14.1 % (11.5-17.5)
[2022-04-23 09:26] LABS: Chloride 106 mmol/L (98-107); Sodium 139 mmol/L (136-145)
[2022-04-23 09:29] LABS: Alanine Aminotransferase 28 U/L (12-78); Albumin Level 4.3 g/dl (3.5-5.0); Alkaline Phosphatase 63 U/L (38-126); Aspartate Amino Transferase 32 U/L (14-36); Bilirubin,Total 1.2 mg/dl (0.2-1.3); Blood Urea Nitrogen 17 mg/dl (7-17); Carbon Dioxide 27 mmol/L (22.0-30.0); Cholesterol 146 mg/dl (140-200); Estimated Glomerular Filt Rate 62 ml/min (>60); GFR (African American) 75 ML/MIN (>60); Globulin 2.2 g/dL (1.3-3.2); Total Protein,Serum 6.5 g/dl (6.3-8.2); Triglycerides 158 mg/dl (30-150); VLDL Cholesterol 32 mg/dL (0-40)
[2022-04-23 09:30] LABS: Calcium 10.1 mg/dl (8.4-10.2); Chol/HDL Ratio 2.8 (1-3.5); Glucose 113 mg/dl (74-100); HDL Cholesterol 52 mg/dl (40-60)
[2022-04-23 09:35] LABS: 25-OH Vitamin D, Total 51.7 ng/mL (30-100)
[2022-04-23 09:36] LABS: Free T4 (Free Thyroxine) 0.97 ng/dl (0.78-2.19)
[2022-04-23 09:41] LABS: Direct LDL Cholesterol 65.57 mg/dL (100-129)
[2022-04-23 09:57] LABS: Appearance,Urine CLEAR (Clear); Bilirubin,Urine Negative (Negative); Blood, Urine Negative (Negative); Color,Urine YELLOW (Yellow); Glucose,Urine (UA) Negative (Negative); Ketones,Urine Negative (Negative); Leukocyte Esterase,Urine 1+ (Negative); Nitrate,Urine POSITIVE (Negative); PH,Urine 5.5 (5.0-8.5); Protein,Urine Negative (Negative); Specific Gravity, Urine >= 1.030 (1.005-1.030); Urobilinogen,Urine 0.2 EU/dl (0.2)
[2022-04-23 10:00] LABS: Thyroid Stimulating Hormone 3.51 uIU/mL (0.465-4.68)
[2022-04-23 10:02] LABS: Hemoglobin A1C 6.5 % (4.0-6.0)
[2022-04-23 10:17] LABS: Bacteria,Urine 3+ /lpf; Squamous Epithelial Cell,Urine Occasional #/hpf (0-5)
[2022-04-23 22:24] LABS: Vitamin B12 797 pg/mL (239-931)
[2022-04-23 22:26] LABS: Folate > 20.00 ng/mL
== END ==
PROVIDERS: PCP Internal Medicine; Visit Provider Nurse Practitioner Family
DX: E78.5 Hyperlipidemia, unspecified (principal); E55.9 Vitamin D deficiency, unspecified; R73.09 Other abnormal glucose; E66.8 Other obesity; Z68.29 Body mass index [BMI] 29.0-29.9, adult; R82.90 Unspecified abnormal findings in urine
CPT/HCPCS: 36415; 80053; 80061; 81001; 82043; 82306; 82607; 82746; 83036; 84439; 84443; 85025; 87086; 87088; 87186

== ENCOUNTER 2022-04-27 02:11 | Emergency (ER) | payer MEDICARE, SELFPAY ==
[2022-04-27 02:13] VITALS: BP 133/51; PULSE 78; RESP 19; TEMP 37; O2SAT 95; BMI 29.7
--- NOTE | 2022-04-27 03:21 | HMH.EDGENADL ---
ED Disposition Clinical Impression: Nausea & vomiting Qualifiers: Vomiting type: unspecified Qualified Code(s): R11.2 - Nausea with vomiting, unspecified Disposition: Home, Self-Care Condition on Discharge: Good Instructions: DI for Diarrhea and Traveler's Diarrhea -- Adult, DI for Diarrhea and Traveler's Diarrhea -- Child, DI for Nausea -- Adult, DI for Nausea -- Child Referrals: Lane Mcdermott [Primary Care Provider] - - Critical Care Critical Care Time: No Attestation: On 04/27/22, the high probability of a clinically significant, sudden or life threatening deterioration of the following system(s) required my full and direct attention, intervention and personal management. The time I documented below is in addition to time spent performing reported procedures but includes the following listed in this critical care notation. Medical Decision Making - Medical Records Medical records reviewed: Yes: I reviewed the patient's medical records. - Nathan Inquiry Pt receiving controlled substance: No Vital Signs: 04/27/22 02:13 Temperature 98.6 F Temperature Source Oral Pulse Rate [Right] 78 Respiratory Rate 19 Blood Pressure [Right Arm] 133/51 L Blood Pressure Mean [Right Arm] 78 Blood Pressure Source [Right Arm] Automatic Cuff 02 Sat by Pulse Oximetry 95 Oxygen Delivery Method Room Air - Lab Data Lab results reviewed: Yes: I reviewed the patient's lab results. Lab Results 04/27/22 03:15: WBC 7.6, RBC 4.09 L, Hgb 13.9, Hct 44.1, MCV 107.8 H, MCH 34.0 H, MCHC 31.5 L, RDW 14.0, Plt Count 211, MPV 7.7, Neut % (Auto) 94.9 H, Lymph % (Auto) 0.8 L, [place] % (Auto) 2.7, Eos % (Auto) 1.1, Baso % (Auto) 0.5, Neut # (Auto) 7.3, Lymph # (Auto) 0.1 L, [place] # (Auto) 0.2, Eos # (Auto) 0.1, Baso # (Auto) 0.0, Total Counted 100, Neutrophils % (Manual) 89 H, Band Neutrophils % 9.0 H, Lymphocytes % (Manual) 1 L, Monocytes % (Manual) 1 L, Platelet Estimate Normal, Hypochromasia 1+, Macrocytosis 2+ 04/27/22 03:15: Sodium 137, Potassium 4.4, Chloride 105, Carbon Dioxide 27, Anion Gap 9.4, BUN 17, Creatinine 0.80, Estimated Creat Clear 66, Estimated GFR 71, Est GFR ( Amer) 86, Glucose 137 H, Calcium 9.9, Total Bilirubin 1.1, AST 43 H, ALT 31, Alkaline Phosphatase 73, Total Protein 6.7, Albumin 4.1, Globulin 2.6, Albumin/Globulin Ratio 1.6 04/27/22 03:15: Magnesium 1.7, Troponin I < 0.01 04/27/22 03:15: NT-Pro-B Natriuret Pep 96.8 04/27/22 03:15: Lactate 2.3 H 04/27/22 03:15: Lipase 100 04/27/22 04:13: VBG pH 7.32, VBG pCO2 45.3, VBG pO2 39.0, VBG HCO3 22.7 L, VBG Total CO2 24.0, VBG O2 Saturation 70.9 H, VBG Base Excess -3.5 L 04/27/22 06:30: Troponin I < 0.01 Result diagrams: 04/27/22 03:15 04/27/22 03:15 Orders (Tests/Meds): ED MEDICATIONS Generic Name Dose Route Start Last Admin Trade Name Freq PRN Reason Stop Dose Admin Lactated Ringer's 1,000 mls @ 999 mls/hr 04/27/22 04:15 04/27/22 04:09 Lactated Ringer's 1000 Ml Bag IV 04/27/22 05:15 999 mls/hr .Q1H1M JOJO Administration Discontinued Medications Generic Name Dose Route Start Last Admin Trade Name Freq PRN Reason Stop Dose Admin Acetaminophen 1,000 mg 04/27/22 06:01 04/27/22 06:23 Acetaminophen 500mg Tab PO 04/27/22 06:02 Not Given ONCE ONE Ibuprofen 400 mg 04/27/22 06:01 04/27/22 06:05 Ibuprofen 400 Mg Tablet PO 04/27/22 06:02 400 mg ONCE ONE Administration Ondansetron HCl 4 mg 04/27/22 04:02 04/27/22 04:09 Ondansetron 4mg/2ml Vial IV 04/27/22 04:03 4 mg ONCE ONE Administration ORDERS Category Date Time Status Troponin I Q3H Lab 04/27/22 10:15 Ordered UA [Urinalysis and Microscopic] Stat Lab 04/27/22 04:10 Ordered EKG Request [ECG Request by /Juanis] Stat Y 04/27/22 04:03 Ordered Medical Decision Narrative: Patient is a 71-year-old female presenting with chief complaint of nausea and vomiting since this evening. Differential diagnosis includes, but is not limited to, atypical ACS, viral gastroen
[2022-04-27 03:48] LABS: Basophils % 0.5 % (0.1-2.0); Eosinophils # 0.1 K/mm3 (0.0-0.4); Eosinophils % 1.1 % (0.1-12.0); Hematocrit 44.1 % (37.0-47.0); Hemoglobin 13.9 g/dL (12.2-16.2); Lymphocytes # 0.1 K/mm3 (0.7-4.5); Lymphocytes % 0.8 % (10-50); Mean Corpuscular HGB Conc 31.5 g/dL (31.8-35.4); Mean Corpuscular Volume 107.8 fl (81-99); Mean Platelet Volume 7.7 fl (7.4-10.4); Monocytes # 0.2 K/mm3 (0.1-1.0); Monocytes % 2.7 % (1.7-9.3); Neutrophils # 7.3 K/mm3 (1.8-7.8); Neutrophils % 94.9 % (37.0-80.0); Platelet Count 211 K/mm3 (142-424); Red Blood Count 4.09 M/mm3 (4.20-5.40); White Blood Count 7.6 K/mm3 (4.8-10.8)
[2022-04-27 03:51] LABS: MANUAL DIFFERENTIAL MANUAL DIFFERENTIAL (MANUAL DIFF)
[2022-04-27 03:56] LABS: Alanine Aminotransferase 31 U/L (12-78); Albumin Level 4.1 g/dl (3.5-5.0); Albumin/Globulin Ratio 1.6 (1.1-1.8); Alkaline Phosphatase 73 U/L (38-126); Anion Gap 9.4 mEq/L (5-15); Aspartate Amino Transferase 43 U/L (14-36); Bilirubin,Total 1.1 mg/dl (0.2-1.3); Blood Urea Nitrogen 17 mg/dl (7-17); Calcium 9.9 mg/dl (8.4-10.2); Carbon Dioxide 27 mmol/L (22.0-30.0); Chloride 105 mmol/L (98-107); Creatinine Clearance Estimated 66 mL/min (50-200); Estimated Glomerular Filt Rate 71 ml/min (>60); GFR (African American) 86 ML/MIN (>60); Globulin 2.6 g/dL (1.3-3.2); Glucose 137 mg/dl (74-100); Potassium 4.4 mmoL/L (3.5-5.1); Sodium 137 mmol/L (136-145); Total Protein,Serum 6.7 g/dl (6.3-8.2)
--- NOTE | 2022-04-27 04:03 | XR_ITS ---
PROCEDURE INFORMATION: Exam: XR Chest Exam date and time: 04/27/2022 4:05 AM Age: 71 years old Clinical indication: Cough and fever; Additional info: R/O pna TECHNIQUE: Imaging protocol: Radiologic exam of the chest. Views: 2 views. COMPARISON: No relevant prior studies available. FINDINGS: Lungs: Unremarkable. No consolidation. Pleural spaces: Unremarkable. No pleural effusion. No pneumothorax. Heart/Mediastinum: Unremarkable. No cardiomegaly. Bones/joints: Unremarkable. IMPRESSION: No acute findings.
[2022-04-27 04:14] LABS: VBG Base Excess -3.5 mmol/L (-2.4-2.3); VBG HCO3 22.7 mmol/L (23-30); VBG Oxygen Saturation 70.9 % (50-70); VBG PCO2 45.3 mmol/L (35-51); VBG PH 7.32 mmol/L (7.31-7.41)
[2022-04-27 04:16] LABS: Magnesium 1.7 mg/dl (1.6-2.3)
[2022-04-27 04:26] LABS: NT Pro Brain Natriuretic Pep. 96.8 pg/mL (0-125)
[2022-04-27 04:30] LABS: Lactic Acid 2.3 mmol/L (0.7-2.1)
[2022-04-27 04:31] LABS: Troponin I < 0.01 ng/ml (0.00-0.034)
[2022-04-27 04:34] LABS: Lymphocytes % 1 % (10-50); Monocytes % 1 % (2-9); Neutrophils % 89 % (42-76); Platelet Estimate Normal; Total Cells Counted 100
[2022-04-27 04:35] LABS: Hypochromasia 1+; Macrocytosis 2+
[2022-04-27 04:46] LABS: Lipase 100 U/L (23-300)
--- NOTE | 2022-04-27 05:40 | ECG_ITS ---
APPROVED REPORT Exam: Resting ECG HR:82 bpm ECG Measurements Heart Rate 82 AXES SC 197 P 37 QRSd 87 QRS 40 QT 357 T 23 QTc 395 Conclusion SINUS RHYTHM NONSPECIFIC T-WAVE ABNORMALITY BORDERLINE ECG UNCONFIRMED REPORT Electronically signed by : Philipp Ortega MD 04/27/2022 15:34:40
--- NOTE | 2022-04-27 06:39 | PC.NURSE ---
patient is currently resting in bed
[2022-04-27 07:09] LABS: Troponin I < 0.01 ng/ml (0.00-0.034)
[2022-04-27 07:50] VITALS: BP 123/74; PULSE 78; RESP 16; TEMP 36.8; O2SAT 98
[2022-04-27 08:05] LABS: Reflex Lactic Add Lactic Reflex
== END 2022-04-27 07:51 | disposition home or self-care (01) ==
PROVIDERS: Emergency Provider Emergency Medicine; PCP Pediatrics
DX: R11.2 Nausea with vomiting, unspecified (principal); R51.9 Headache, unspecified; Z87.440 Personal history of urinary (tract) infections
CPT/HCPCS: 71046; 80053; 82803; 83605; 83690; 83735; 83880; 84484; 85007; 85025; 93005; 96374; 99284; J2405

== ENCOUNTER 2022-04-30 11:00 | Outpatient (RCR) | payer MEDICARE, SELFPAY ==
--- NOTE | 2022-04-05 10:46 | HMH.OTOPEV ---
OT Inpatient Evaluation Rehab OT Outpatient Eval Start: 04/05/22 10:23 Freq: Status: Active Protocol: Document 04/05/22 10:23 RMARSHALL (Rec: 04/05/22 10:46 [facility] [id number]) Electronically Signed By Crys Hyman OT 04/05/22 10:23 Outpatient Therapy Subjective History Subjective History Pt is a 71 year old right hand dominant female who reports to therapy for initial evaluation to left small finger. Pt reports on February 15 she had an accident with her dog resulting in 5th proximal phalanx fx. Pt explains she was in a cast for 6 weeks and the cast was removed ~1 week ago. Pt does complain of a dull ache in the small finger intermittently. She demosntrates with slight decreased in strength and AROM at small finger. Pt will continue to be seen twice a week in order to address all small finger deficits. STG AROM MP Flex: 85 degrees PIP Flex: 90 degrees DIP flex: 60 degrees LTG AROM MP Flex: 90 degrees PIP Flex: 100 degrees DIP Flex: 60 degrees STG L hand gambling floor supervisor strength: 30lbs LTG L hand gambling floor supervisor strength 40 lbs Chief Complaint Pain,Stiff,Weakness,Decreased Information Technology Coordinator Strength Symptom Type Ache,Throb,Dull Symptoms Relieved By Rest/Positioning Symptoms Aggravated By Physical Activity,Lifting Prior Functional Limitations None Current Functional Limitations Reaching,Lifting,Housework, Sleeping,Recreation Activity Symptom Description Intermittent,Activity Dependent Level of pain today (0-10) 2 Pain scale - at its best (0-10) 0 Pain scale - at its worst (0-10) 4 Wrist/Hand Eval Finger Range of Motion Left Little Finger Finger Metacarpophalangeal Flexion 75 degrees Active Range of Motion (degrees) Finger Metacarpophalangeal Extension 0 degrees Active Range of Motion (degrees) Finger Proximal Interphalangeal Flexion 80 degrees Active Ra
== END 2022-04-30 11:05 | disposition home or self-care (01) ==
LOC: OT 11:00
PROVIDERS: PCP Internal Medicine; Visit Provider Orthopaedic Surgery
DX: S62.646D Nondisplaced fracture of proximal phalanx of right little finger, subsequent encounter for fracture with routine healing (principal)
CPT/HCPCS: 97010; 97014; 97035; 97110; 97140; 97166; G0283

== ENCOUNTER → 2022-05-10 09:00 | Outpatient (CLI) | payer MEDICARE, SELFPAY ==
--- NOTE | 2022-05-10 09:03 | XR_ITS ---
FINAL REPORT CLINICAL HISTORY: hand injury COMPARISON: 03/29/2022 FINDINGS: LEFT HAND Three views were obtained. Again identified is a fracture of the proximal radial aspect of the 5th proximal phalanx. Fracture extends to the joint. There is evidence of partial bony fusion from prior examination IMPRESSION: Fracture of the 5th proximal phalanx with partial bony fusion. Reviewed, Interpreted and Dictated by Fermin Cason III, MD Transcribed by Gianna Zhou Authenticated and [facility]
== END ==
PROVIDERS: PCP Internal Medicine; Visit Provider Orthopaedic Surgery
DX: S62.617A Displaced fracture of proximal phalanx of left little finger, initial encounter for closed fracture (principal)
CPT/HCPCS: 73130

== ENCOUNTER 2022-08-20 15:28 | Observation (INO) | payer MEDICARE, SELFPAY ==
--- NOTE | 2022-08-20 15:20 | ECG_ITS ---
APPROVED REPORT Exam: Resting ECG HR:70 bpm ECG Measurements Heart Rate 70 AXES VA 176 P -11 QRSd 88 QRS -16 QT 355 T -14 QTc 375 Conclusion SINUS RHYTHM MINIMAL ST DEPRESSION [0.025+ mV ST DEPRESSION] BORDERLINE ECG UNCONFIRMED REPORT Electronically signed by : Philipp Ortgea MD 08/20/2022 20:48:15
[2022-08-20 15:28] VITALS: BP 186/104; PULSE 76; RESP 18; TEMP 36.7; O2SAT 98; BMI 32.8
--- NOTE | 2022-08-20 15:51 | HMH.EDCP ---
Discharge Plan Disposition Patient Disposition: Admitted As Inpatient Condition: Fair Chief Complaint: Chest Pain Prescriptions Prescriptions: No Action metformin 500 MG tablet 500 mg PO BID atorvastatin 20 MG tablet 20 mg PO DAILY prednisone 5 MG tablet 5 mg PO DAILY omeprazole 40 MG capsule,delayed release(DR/EC) 40 mg PO DAILY metoprolol succinate 25 MG tablet extended release 24 hr 25 mg PO DAILY fluticasone propionate 120 SPR/BOT bottle 2 spr NS DAILY multivitamin 1 EACH tablet 1 each PO DAILY aspirin 81 MG tablet,delayed release (DR/EC) 81 mg PO DAILY flaxseed oil 1,000 MG capsule 1,000 mg PO DAILY calcium carbonate-vitamin D3 1 EACH tablet,chewable 30 mg PO DAILY alpha lipoic acid 200 MG capsule 200 mg PO DAILY L.acidoph, paracasei,B. lactis 1 EACH capsule 1 tab PO DAILY cholecalciferol (vitamin D3) 50 MCG capsule 25 mcg PO DAILY vitamin E succinate 400 UNIT tablet 180 mg PO DAILY losartan 25 MG tablet 25 mg PO DAILY Referrals Follow up/Referrals: Provider,Referral, [Referring] - See instructions Clinical Impressions Clinical Impression: Angina pectoris, unstable Discharge ED Provider: Dixon Jacinto Chest Pain HPI General Chief Complaint: Chest Pain Stated Complaint: chest pain Time Seen by Provider: 08/20/22 15:35 Mode of Arrival: Ambulatory Limitations: No Limitations Description of Symptoms (Recalled from ER Triage Doc. by RN): PT WITH C/O CHEST HEAVINESS SINCE FRIDAY History of Present Illness HPI narrative: Patient is a 71-year-old female with a past medical history of hyperlipidemia, carotid stenosis, anxiety who presents with concern for chest heaviness. She states that her symptoms started on Friday when she was coming over amount past. She says that she was nervous during that time and she felt her pulse in her neck and then felt it in her lips and started having a dull chest heaviness. She said this self resolved and it has not happened since. She went and saw her migraine physician today who recommended that she come in for evaluation with a chest heaviness. She currently denies any chest pain or shortness of breath. She says she does feel anxious. Denies any nausea or diaphoresis. Denies any symptoms in her shoulder or jaw Related Data Home Medications Medication Instructions Recorded Confirmed atorvastatin 20 mg tablet 20 mg PO DAILY Cholesterol 11/01/18 05/10/22 fluticasone propionate 50 2 spr intranasal DAILY allergies 11/01/18 05/10/22 mcg/actuation nasal spray,suspension metformin 500 mg tablet 500 mg PO BID dm 11/01/18 05/10/22 metoprolol succinate 25 mg 25 mg PO DAILY heart health 11/01/18 05/10/22 tablet,extended release 24 hr omeprazole 40 mg capsule,delayed 40 mg PO DAILY GERD 11/01/18 05/10/22 release prednisone 5 mg tablet 5 mg PO DAILY autoimmune hepatitis 11/01/18 05/10/22 L.acidoph, paracasei,B. lactis 10 1 tab PO DAILY Supplement 05/22/21 05/10/22 billion cell capsule alpha lipoic acid 200 mg capsule 200 mg PO DAILY Supplement 05/22/21 05/10/22 aspirin 81 mg tablet,delayed 81 mg PO DAILY heart healthy 05/22/21 05/10/22 release calcium carbonate 500 mg-vitamin 30 mg PO DAILY Supplement 05/22/21 05/10/22 D3 2.5 mcg (100 unit) chewable tablet cholecalciferol (vitamin D3) 50 25 mcg PO DAILY Supplement 05/22/21 05/10/22 mcg (2,000 unit) capsule flaxseed oil 1,000 mg capsule 1,000 mg PO DAILY Supplement 05/22/21 05/10/22 multivitamin 1 each PO DAILY Supplement 05/22/21 05/10/22 vitamin E succinate 268 mg (400 180 mg PO DAILY Supplement 05/22/21 05/10/22 unit) tablet losartan 25 mg tablet 25 mg PO DAILY htn 04/27/22 05/10/22 Allergies Allergy/AdvReac Type Severity Reaction Status Date / Time acetaminophen Allergy Hallucinati Verified 05/10/22 09:23 ng Cephalosporins Allergy Verified 05/10/22 09:23 meperidine [From De
--- NOTE | 2022-08-20 17:05 | XR_ITS ---
PROCEDURE INFORMATION: Exam: XR Chest Exam date and time: 08/20/2022 5:40 PM Age: 71 years old Clinical indication: Pain; Angina pectoris; Additional info: Chest pain TECHNIQUE: Imaging protocol: Radiologic exam of the chest. Views: 1 view. COMPARISON: CR XR CHEST 2V 04/27/2022 4:05 AM FINDINGS: Lungs: Unremarkable. No consolidation. Pleural spaces: Unremarkable. No pleural effusion. No pneumothorax. Heart/Mediastinum: Right paratracheal region calcified lymph nodes are unchanged. Normal heart size. Vasculature: Aortic tortuosity. Bones/joints: Unremarkable. IMPRESSION: No acute findings.
[2022-08-20 17:10] VITALS: PULSE 70; O2SAT 98
[2022-08-20 17:15] VITALS: PULSE 64; O2SAT 98
[2022-08-20 17:20] LABS: Basophils % 0.6 % (0.1-2.0); Eosinophils % 0.8 % (0.1-12.0); Hematocrit 44.3 % (37.0-47.0); Lymphocytes # 0.5 K/mm3 (0.7-4.5); Lymphocytes % 9.2 % (10-50); Mean Corpuscular HGB Conc 31.5 g/dL (31.8-35.4); Mean Corpuscular Hemoglobin 33.3 pg (27.0-31.2); Mean Corpuscular Volume 105.8 fl (81-99); Mean Platelet Volume 8.2 fl (7.4-10.4); Monocytes # 0.3 K/mm3 (0.1-1.0); Monocytes % 5.2 % (1.7-9.3); Neutrophils # 4.4 K/mm3 (1.8-7.8); Neutrophils % 84.2 % (37.0-80.0); Platelet Count 231 K/mm3 (142-424); Red Blood Count 4.19 M/mm3 (4.20-5.40); Red Cell Distribution Width 13.9 % (11.5-17.5); White Blood Count 5.2 K/mm3 (4.8-10.8)
[2022-08-20 17:22] LABS: Anion Gap 15.2 mEq/L (5-15); Blood Urea Nitrogen 17 mg/dl (7-17); Calcium 9.7 mg/dl (8.4-10.2); Carbon Dioxide 27 mmol/L (22.0-30.0); Chloride 102 mmol/L (98-107); Creatinine Clearance Estimated 68 mL/min (50-200); Estimated Glomerular Filt Rate 71 ml/min (>60); GFR (African American) 86 ML/MIN (>60); Glucose 122 mg/dl (74-100); Potassium 4.2 mmoL/L (3.5-5.1); Sodium 140 mmol/L (136-145)
--- NOTE | 2022-08-20 17:29 | PC.NURSE ---
RADIOLOGY DOING A PORT XRAY
[2022-08-20 17:34] LABS: Troponin I 0.18 ng/ml (0.00-0.034)
--- NOTE | 2022-08-20 18:13 | PC.NURSE ---
LAB CALLED FOR REPEAT TROP
--- NOTE | 2022-08-20 18:52 | PC.NURSE ---
PT ASSISTED TO BR AT THIS TIME. NO NEEDS VOICED
[2022-08-20 19:32] LABS: Troponin I 0.17 ng/ml (0.00-0.034)
--- NOTE | 2022-08-20 20:19 | PC.NURSE ---
DR SEYMOUR SPOKE WITH HOSPITIALIST FOR ADMISSION , HOUSE NOTIFIED
[2022-08-20 20:29] LABS: Coronavirus 19, PCR Not Detected (NotDetected); Influenza A, PCR Not Detected (NotDetected); Influenza B, PCR Not Detected (NotDetected)
[2022-08-20 20:53] VITALS: PULSE 65
--- NOTE | 2022-08-20 21:01 | EXP.HP ---
History of Present Illness *Admission Date: 08/20/22 *Reason for visit:: Chest pain/discomfort *History of present illness: Ms. Sahra Velasquez is a 71-year-old female with a past medical history of Diabetes, HTN, HL and DIANDRA. She presents to [facility] due to chest discomfort that she reports has been going on and off for 3 days duration. The patient was seen on initial evaluation in the ER. She reports that she was traveling 3 days ago and [place] traveling in [place], she reports that as she went back to sea [place] that she experienced some chest discomfort and the feeling of tightness in her chest, she reports that the symptoms were associated with SOA and pain in her jaw. She reports that the symptoms have came and went over the last 3 days. She reports that upon prompting by her family that she came into the ER for evaluation. In the ER, Cxray performed showed no Acute Cardiopulmonary findings, EKG showed NSR with rate of [address] segment elevation or depression. Troponin was elevated at 0.18 and 0.17. The patient will be admitted with initial impression Atypical Chest pain. Cardiology has been consulted to see the patient, echo will be ordered. A d-dimer will be obtained and if elevated a CTA of the chest will be ordered. The plan of care was discussed with the patient at bedside in the ER prior to her admission. The patient verbalized understanding and agreement with the plan of care. [facility] Medical History (Updated 08/21/22 @ 15:03 by Keyur Mcfadden MD) Autoimmune hepatitis Carpal tunnel syndrome Cataract High cholesterol History of chest pain Hypertension Surgical History (Updated 08/20/22 @ 22:06 by Liliana Dempsey RN) History of section History of cholecystectomy Social History Smoking Status: Never smoker second hand exposure: No alcohol intake: current substance use type: denies use current occupational status: retired Travel in the last 8 weeks: None household members: spouse housing: house caffeine: Yes Review of Systems Review of Systems Review of systems:: pertinent systems reviewed and negative unless documented below Constitutional Constitutional: Reports system reviewed and no additional complaints, except as documented and Reports headache(s) Eyes Eyes: Reports system reviewed and no additional complaints, except as documented ENT Ears, Nose, Mouth, and Throat: Reports system reviewed and no additional complaints, except as documented and Reports headache(s) *Cardiovascular Cardiovascular: Reports chest pain, Reports chest pain at rest, Reports chest pain with activity and Reports dyspnea *Respiratory Respiratory: Reports dyspnea *Gastrointestinal Gastrointestinal: Reports system reviewed and no additional complaints, except as documented *Genitourinary Genitourinary: Reports system reviewed and no additional complaints, except as documented *Musculoskeletal Musculoskeletal: Reports system reviewed and no additional complaints, except as documented Integumentary/Breasts Skin/Breast: Reports system reviewed and no additional complaints, except as documented *Neurologic Neurologic: Reports headache(s) Psychiatric Psychiatric: Reports system reviewed and no additional complaints, except as documented Endocrine Endocrine: Reports system reviewed and no additional complaints, except as documented Hematologic/Lymphatic Hematologic/Lymphatic: Reports system reviewed and no additional complaints, except as documented Allergic/Immunologic Allergic/Immunologic: Reports system reviewed and no additional complaints, except as documented Meds Home Medications and Allergies Home Medications Medication Instructions Recorded Confirmed Type fluticasone propionate 50 2 spr intranasal DAILY allergies 11/01/18 08/20/22 History mcg/actuation nasal spray,s
--- NOTE | 2022-08-20 21:04 | PC.NURSE ---
Addendum entered by LEVI Otoole 08/20/22 21:42: PT ARRIVED TO FLOOR VIA WHEEL CHAIR AT 21:41 Original Note: PT ARRIVED VIA STRETCHER AT THIS TIME
[2022-08-20 21:46] VITALS: BP 165/94; PULSE 65; RESP 18; TEMP 36.6; O2SAT 99
[2022-08-20 22:00] VITALS: BP 165/94; PULSE 68; RESP 18; TEMP 36.4; O2SAT 94
[2022-08-20 22:03] VITALS: BMI 32.8
[2022-08-20 22:28] LABS: D-Dimer 0.69 ug/mL (0.0-0.5)
[2022-08-20 22:49] LABS: Troponin I 0.18 ng/ml (0.00-0.034)
--- NOTE | 2022-08-20 22:50 | CT_ITS ---
PROCEDURE INFORMATION: Exam: CTA Chest With Contrast Exam date and time: 08/20/2022 11:19 PM Age: 71 years old Clinical indication: Abnormal findings; Abnormal diagnostic tests; Elevated d-dimer; Patient HX: Patient denies any chest pain or SOA; Additional info: Elevated d-dimer, chest pain, SOA TECHNIQUE: Imaging protocol: Computed tomographic angiography of the chest with contrast. 3D rendering (Not supervised by radiologist): MIP and/or 3D reconstructed images were created by the technologist. Radiation optimization: All CT scans at this facility use at least one of these dose optimization techniques: automated exposure control; mA and/or kV adjustment per patient size (includes targeted exams where dose is matched to clinical indication); or iterative reconstruction. Contrast material: ISOVUE; Contrast volume: 70 ml; Contrast route: INTRAVENOUS (IV); COMPARISON: CR XR CHEST PORTABLE 08/20/2022 5:40 PM FINDINGS: Pulmonary arteries: Normal. No pulmonary emboli. Aorta: Unremarkable. No aortic aneurysm. No aortic dissection. Lungs: Unremarkable. No consolidation. No masses. Pleural spaces: Unremarkable. No pneumothorax. No pleural effusion. Heart: Unremarkable. No cardiomegaly. No pericardial effusion. Lymph nodes: Calcified lymph nodes in the precarinal and right paratracheal regions. Gallbladder and bile ducts: Cholecystectomy. Bones/joints: Unremarkable. No acute fracture. Soft tissues: Unremarkable. IMPRESSION: No acute findings.
[2022-08-21] VITALS (21 sets, daily range): BP systolic 104–145; BP diastolic 55–77; PULSE 53–75; RESP 16–18; TEMP 36.6–36.8; O2SAT 92–98; BMI 32.8
--- NOTE | 2022-08-21 | IR_ITS ---
APPROVED REPORT Patient Location: Inpatient Body Former: [facility] RT (R) PROCEDURES Left heart catheterization Left ventriculogram Selective coronary angiogram Informed consent was obtained prior to the procedure. COMPLICATIONS None Estimated Blood Loss: Less than 10 mls TECHNIQUE One percent lidocaine used to anesthetize the right anterior aspect of the wrist. The right radial artery was accessed via the Seldinger technique. A 6 [place] sheath was placed in the right radial artery. 2.5 mg of verapamil, 800 mcg of nitroglycerin, 1mg Lidocaine and 5000 U Heparin were given through the arterial sheath. The papa catheter was also used to perform left heart catheterization, left ventriculogram and selective coronary angiogram. At the end of the procedure the sheath was removed good hemostasis was achieved using Traclet band, patient was transferred to the postop holding area in stable condition. ANGIOGRAPHIC RESULTS The left main artery Normal The left anterior descending artery Is proximally normal and has slow flow down the mid to distal LAD consistent with endothelial dysfunction The circumflex artery Nondominant with mild luminal irregularities The right coronary artery Massively large dominant with mild 10% luminal irregularities The NICHOLS ventriculogram reveals Slightly hyperdynamic at 75% The left ventricular end-diastolic pressure 20 mmHg IMPRESSION Slow flow down the LAD consistent with endothelial dysfunction Hyperdynamic ventricle consistent with diastolic dysfunction PLAN 1. Medical management for diastolic dysfunction and hyperdynamic ventricle Electronically signed by : Delio Mcgee MD 08/21/2022 14:25:53
[2022-08-21 06:20] LABS: POC Glucose,Bedside 98 (70-110)
--- NOTE | 2022-08-21 06:34 | PC.NURSE ---
Pt has not voiced any c/o to staff. Slept well t/o shift. Ambulates to BR ind. Tolerating RA well with sats >90%, refused bipap t/o night. Call light within reach.
--- NOTE | 2022-08-21 07:31 | HMH.PHAINT1 ---
Pharmacy Intervention Comments: Home medication reconciliation completed using outpatient pharmacy medication fill history.
[2022-08-21 07:53] LABS: Basophils # 0.1 K/mm3 (0-0.2); Basophils % 1.7 % (0.1-2.0); Eosinophils # 0.2 K/mm3 (0.0-0.4); Eosinophils % 4.5 % (0.1-12.0); Hematocrit 41.4 % (37.0-47.0); Hemoglobin 13.3 g/dL (12.2-16.2); Lymphocytes # 0.8 K/mm3 (0.7-4.5); Lymphocytes % 22.3 % (10-50); Mean Corpuscular HGB Conc 32.3 g/dL (31.8-35.4); Mean Corpuscular Volume 105.4 fl (81-99); Mean Platelet Volume 7.8 fl (7.4-10.4); Monocytes # 0.3 K/mm3 (0.1-1.0); Monocytes % 9.7 % (1.7-9.3); Neutrophils # 2.2 K/mm3 (1.8-7.8); Neutrophils % 61.9 % (37.0-80.0); Platelet Count 229 K/mm3 (142-424); Red Blood Count 3.93 M/mm3 (4.20-5.40); White Blood Count 3.5 K/mm3 (4.8-10.8)
[2022-08-21 08:21] LABS: Chloride 104 mmol/L (98-107); Potassium 3.7 mmoL/L (3.5-5.1); Sodium 140 mmol/L (136-145)
[2022-08-21 08:24] LABS: Alanine Aminotransferase 22 U/L (12-78); Albumin Level 3.9 g/dl (3.5-5.0); Albumin/Globulin Ratio 1.6 (1.1-1.8); Alkaline Phosphatase 62 U/L (38-126); Anion Gap 9.7 mEq/L (5-15); Aspartate Amino Transferase 31 U/L (14-36); Bilirubin,Total 1.2 mg/dl (0.2-1.3); Blood Urea Nitrogen 13 mg/dl (7-17); Calcium 9.2 mg/dl (8.4-10.2); Carbon Dioxide 30 mmol/L (22.0-30.0); Chol/HDL Ratio 2.8 (1-3.5); Cholesterol 127 mg/dl (140-200); Creatinine Clearance Estimated 68 mL/min (50-200); Estimated Glomerular Filt Rate 82 ml/min (>60); GFR (African American) 100 ML/MIN (>60); Globulin 2.4 g/dL (1.3-3.2); Glucose 83 mg/dl (74-100); HDL Cholesterol 45 mg/dl (40-60); Total Protein,Serum 6.3 g/dl (6.3-8.2); Triglycerides 144 mg/dl (30-150); VLDL Cholesterol 29 mg/dL (0-40)
[2022-08-21 08:35] LABS: Direct LDL Cholesterol 50.17 mg/dL (100-129)
--- NOTE | 2022-08-21 08:38 | EXP.CARD.CON ---
History of Present Illness History of Present Illness Consult date: 08/21/22 Requesting physician: Keyur Mcfadden Consult reason: chest pain Chief complaint: chest pain, jaw pain Additional Medical History:: 1. DM, treated for about 15 yrs 2. HTN, treated for about 10 yrs 3. HLD, treated for about 10 yrs 4. History of Migraine headaches History of present illness: Ms. Sahra Velasquez is a 71-year-old female with a past medical history of Diabetes, HTN, HL and DIANDRA.? She presents to [facility] due to chest discomfort that she reports has been going on and off for 3 days duration.? The patient was seen on initial evaluation in the ER.? She reports that she was traveling 3 days ago and [place] traveling in [place], she reports that [place] she [place] that she experienced some chest discomfort and the feeling of tightness in her chest, she reports that the symptoms were associated with SOA and pain in her jaw.? She reports that the symptoms have came and went over the last 3 days.? She reports that upon prompting by her family that she came into the ER for evaluation.? In the ER, Cxray performed showed no Acute Cardiopulmonary findings, EKG showed NSR with rate of [address] segment elevation or depression.? Troponin was elevated at 0.18 and 0.17.? The patient will be admitted with initial impression Atypical Chest pain.? Cardiology has been consulted to see the patient, echo will be ordered.? A d-dimer will be obtained and if elevated a CTA of the chest will be ordered.? The plan of care was discussed with the patient at bedside in the ER prior to her admission.? The patient verbalized understanding and agreement with the plan of care. The above per Marshall Brsawell DNP Pleasant 71-year-old white female confirms events as noted above. Patient describes the chest discomfort is more of an ache with discomfort into the neck and jaw. She is a longtime diabetic (greater than 15 years) with treatment for hypertension and hyperlipidemia for about 10 years. She denies any history of tobacco use. She had a exercise stress test with echo reportedly last year with with no need for further evaluation. Troponins are elevated x3 (max 0.18) and EKG is sinus rhythm with poor R wave progression anteriorly and nonspecific ST-T abnormalities in the anterior leads. Patient is pain-free this morning. We discussed recommendation for left heart catheterization and patient agrees to proceed. We will also obtain an echocardiogram to evaluate left ventricular ejection fraction. [facility] Medical History (Updated 08/21/22 @ 08:49 by ULISSES Sauceda) Autoimmune hepatitis Carpal tunnel syndrome Cataract High cholesterol History of chest pain Hypertension Surgical History (Updated 08/20/22 @ 22:06 by Liliana Dempsey RN) History of section History of cholecystectomy Social History Smoking Status: Never smoker second hand exposure: No alcohol intake: current substance use type: denies use current occupational status: retired Travel in the last 8 weeks: None household members: spouse housing: house caffeine: Yes Review of Systems Constitutional Constitutional: Reports headache(s) ENT Ears, Nose, Mouth, and Throat: Reports headache(s) *Cardiovascular Cardiovascular: Reports chest pain, Reports chest pain at rest, Denies dyspnea and Reports radiating jaw, neck or arm pain *Respiratory Respiratory: Denies dyspnea *Gastrointestinal Gastrointestinal: Denies abdominal pain, Denies diarrhea and Denies vomiting *Genitourinary Genitourinary: Denies hematuria *Musculoskeletal Musculoskeletal: Denies back pain and Denies joint swelling *Neurologic Neurologic: Reports headache(s) Exam Data for Last 24 hours Vital signs and Labs for Last 24 Hours: Temp Pulse Resp BP Pulse Ox 98.1 F 64 17 138/69
[2022-08-21 11:55] LABS: POC Glucose,Bedside 110 (70-110)
--- NOTE | 2022-08-21 15:01 | EXP.DC.SUM ---
General Admission date:: 08/20/22 Discharge date: 08/21/22 HPI HPI HPI: Ms. Sahra Velasquez is a 71-year-old female with a past medical history of Diabetes, HTN, HL and DIANDRA. She presents to [facility] due to chest discomfort that she reports has been going on and off for 3 days duration. The patient was seen on initial evaluation in the ER. She reports that she was traveling 3 days ago and [place] while traveling in [place], she reports that as she [place] that she experienced some chest discomfort and the feeling of tightness in her chest, she reports that the symptoms were associated with SOA and pain in her jaw. She reports that the symptoms have came and went over the last 3 days. She reports that upon prompting by her family that she came into the ER for evaluation. In the ER, Cxray performed showed no Acute Cardiopulmonary findings, EKG showed NSR with rate of [address] segment elevation or depression. Troponin was elevated at 0.18 and 0.17. The patient will be admitted with initial impression Atypical Chest pain. Cardiology has been consulted to see the patient, echo will be ordered. A d-dimer will be obtained and if elevated a CTA of the chest will be ordered. The plan of care was discussed with the patient at bedside in the ER prior to her admission. The patient verbalized understanding and agreement with the plan of care. Hospital Course Hospital Course Hospital Course: Pleasant 71-year-old female admitted for NSTE-ACS. Remained chest pain-free during admission. Monitor troponins overnight with serial elevation. Cardiology consulted. Taken for left heart cath after evaluation. Findings as follows: IMPRESSION Slow flow down the LAD consistent with endothelial dysfunction; Hyperdynamic ventricle consistent with diastolic dysfunction PLAN 1. Medical management for diastolic dysfunction and hyperdynamic ventricle Plan to continue patient's home medications. We will add spironolactone for treatment if diastolic dysfunction. Increase statin. Will monitor blood pressures decreasing radial band per pro. Patient medically stable for discharge home. Close follow-up with cardiology and PCP. Exam Data for Last 24 hours Vital signs and Labs for Last 24 Hours: Temp Pulse Resp BP Pulse Ox 97.8 F 65 16 116/74 92 L 08/21/22 11:33 08/21/22 13:50 08/21/22 13:50 08/21/22 13:50 08/21/22 13:50 Laboratory Results - last 24 hr 08/20/22 15:30: WBC 5.2, RBC 4.19 L, Hgb 14.0, Hct 44.3, MCV 105.8 H, MCH 33.3 H, MCHC 31.5 L, RDW 13.9, Plt Count 231, MPV 8.2, Neut % (Auto) 84.2 H, Lymph % (Auto) 9.2 L, [place] % (Auto) 5.2, Eos % (Auto) 0.8, Baso % (Auto) 0.6, Neut # (Auto) 4.4, Lymph # (Auto) 0.5 L, [place] # (Auto) 0.3, Eos # (Auto) 0.0, Baso # (Auto) 0.0 08/20/22 15:30: Sodium 140, Potassium 4.2, Chloride 102, Carbon Dioxide 27, Anion Gap 15.2 H, BUN 17, Creatinine 0.80, Estimated Creat Clear 68, Estimated GFR 71, Est GFR ( Amer) 86, Glucose 122 H, Calcium 9.7, Troponin I 0.18 H 08/20/22 18:42: Troponin I 0.17 H 08/20/22 20:22: SARS-CoV-2 (PCR) Not detected, Influenza A Untype (PCR) Not detected, Influenza Type B (PCR) Not detected 08/20/22 21:57: Troponin I 0.18 H 08/20/22 21:57: D-Dimer 0.69 H 08/21/22 06:13: POC Glucose 98 08/21/22 06:41: Triglycerides 144, Cholesterol 127 L, LDL Cholesterol Direct 50.17 L, VLDL Cholesterol 29, HDL Cholesterol 45, Cholesterol/HDL Ratio 2.8 08/21/22 06:41: WBC 3.5 L D, RBC 3.93 L, Hgb 13.3, Hct 41.4, MCV 105.4 H, MCH 34.0 H, MCHC 32.3, RDW 14.0, Plt Count 229, MPV 7.8, Neut % (Auto) 61.9, Lymph % (Auto) 22.3, [place] % (Auto) 9.7 H, Eos % (Auto) 4.5, Baso % (Auto) 1.7, Neut # (Auto) 2.2, Lymph # (Auto) 0.8, [place] # (Auto) 0.3, Eos # (Auto) 0.2, Baso # (Auto) 0.1 08/21/22 06:41: Sodium 140, Potassium 3.7, Chloride 104, Carbon Dioxide 30, Anion Gap 9.7, BUN 13, Creatinine 0.70, Estimated Creat Clear 68, Estimated GFR 82, Est
[2022-08-21 16:27] LABS: POC Glucose,Bedside 176 (70-110)
[2022-08-21 16:27] LABS: POC Glucose,Bedside 122 (70-110)
--- NOTE | 2022-08-21 18:45 | PC.NURSE ---
Spoke with Dr. Mcfadden and stated that it was okay for her to leave @ 1900 before post op vitals were done.
--- NOTE | 2022-08-22 13:45 | CARE MANAGER ---
Contacted patient related to hospital discharge. She states she is doing well. 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 Denies any questions or concerns. ELIZA Zhao
== END 2022-08-21 19:45 | disposition home or self-care (01) ==
LOC: ER 20:00 → 2ND 20:33
PROVIDERS: Internal Medicine; Nurse Practitioner Family; Admitting Provider Internal Medicine Adolescent Medicine; Emergency Provider Student in an Organized Health Care Education/Training Program; PCP Internal Medicine; Visit Provider Internal Medicine Adolescent Medicine
DX: I21.4 Non-ST elevation (NSTEMI) myocardial infarction (principal); I25.110 Atherosclerotic heart disease of native coronary artery with unstable angina pectoris; E11.9 Type 2 diabetes mellitus without complications; I10 Essential (primary) hypertension; E78.5 Hyperlipidemia, unspecified; R07.9 Chest pain, unspecified; G47.33 Obstructive sleep apnea (adult) (pediatric); Z79.84 Long term (current) use of oral hypoglycemic drugs; Z79.899 Other long term (current) drug therapy; Z20.822 Contact with and (suspected) exposure to COVID-19
CPT/HCPCS: G0378; 36415; 71045; 71275; 80048; 80053; 80061; 82962; 84484; 85025; 85378; 93005; 93306; 93458; 99152; 99285; C1725; C1769; C9803; J1644; Q9967; U0003; U0005

== ENCOUNTER → 2022-08-28 09:54 | Outpatient (CLI) | payer MEDICARE, SELFPAY ==
[2022-08-28 10:31] LABS: Basophils # 0.1 K/mm3 (0-0.2); Basophils % 1.3 % (0.1-2.0); Eosinophils # 0.2 K/mm3 (0.0-0.4); Eosinophils % 4.3 % (0.1-12.0); Hematocrit 47.3 % (37.0-47.0); Hemoglobin 14.8 g/dL (12.2-16.2); Lymphocytes # 0.8 K/mm3 (0.7-4.5); Lymphocytes % 19.4 % (10-50); Mean Corpuscular HGB Conc 31.2 g/dL (31.8-35.4); Mean Corpuscular Hemoglobin 32.5 pg (27.0-31.2); Mean Corpuscular Volume 104.1 fl (81-99); Mean Platelet Volume 7.6 fl (7.4-10.4); Monocytes # 0.5 K/mm3 (0.1-1.0); Monocytes % 10.4 % (1.7-9.3); Neutrophils # 2.8 K/mm3 (1.8-7.8); Neutrophils % 64.6 % (37.0-80.0); Platelet Count 234 K/mm3 (142-424); Red Blood Count 4.54 M/mm3 (4.20-5.40); Red Cell Distribution Width 13.8 % (11.5-17.5); White Blood Count 4.4 K/mm3 (4.8-10.8)
[2022-08-28 11:13] LABS: Anion Gap 14.5 mEq/L (5-15); Blood Urea Nitrogen 23 mg/dl (7-17); Calcium 9.7 mg/dl (8.4-10.2); Carbon Dioxide 28 mmol/L (22.0-30.0); Chloride 101 mmol/L (98-107); Estimated Glomerular Filt Rate 55 ml/min (>60); GFR (African American) 66 ML/MIN (>60); Glucose 106 mg/dl (74-100); Potassium 4.5 mmoL/L (3.5-5.1); Sodium 139 mmol/L (136-145)
== END ==
PROVIDERS: PCP Internal Medicine; Visit Provider Physician Assistant
DX: I20.0 Unstable angina; I10 Essential (primary) hypertension; E11.9 Type 2 diabetes mellitus without complications; E78.5 Hyperlipidemia, unspecified; I21.4 Non-ST elevation (NSTEMI) myocardial infarction; G47.33 Obstructive sleep apnea (adult) (pediatric); Z79.84 Long term (current) use of oral hypoglycemic drugs
CPT/HCPCS: 36415; 80048; 85025

== ENCOUNTER → 2022-10-29 13:47 | Outpatient (CLI) | payer MEDICARE, SELFPAY ==
[2022-10-29 14:52] LABS: Basophils % 0.5 % (0.1-2.0); Eosinophils # 0.1 K/mm3 (0.0-0.4); Eosinophils % 2.8 % (0.1-12.0); Hematocrit 41.3 % (37.0-47.0); Hemoglobin 13.4 g/dL (12.2-16.2); Lymphocytes # 0.5 K/mm3 (0.7-4.5); Lymphocytes % 11.1 % (10-50); Mean Corpuscular HGB Conc 32.5 g/dL (31.8-35.4); Mean Corpuscular Hemoglobin 33.7 pg (27.0-31.2); Mean Corpuscular Volume 103.6 fl (81-99); Mean Platelet Volume 7.8 fl (7.4-10.4); Monocytes # 0.3 K/mm3 (0.1-1.0); Monocytes % 6.7 % (1.7-9.3); Neutrophils # 3.8 K/mm3 (1.8-7.8); Neutrophils % 78.8 % (37.0-80.0); Platelet Count 229 K/mm3 (142-424); Red Blood Count 3.99 M/mm3 (4.20-5.40); Red Cell Distribution Width 13.9 % (11.5-17.5); White Blood Count 4.8 K/mm3 (4.8-10.8)
[2022-10-29 15:42] LABS: Alanine Aminotransferase 27 U/L (12-78); Albumin Level 4.3 g/dl (3.5-5.0); Albumin/Globulin Ratio 1.9 (1.1-1.8); Alkaline Phosphatase 58 U/L (38-126); Anion Gap 10.1 mEq/L (5-15); Aspartate Amino Transferase 31 U/L (14-36); Bilirubin,Total 1.1 mg/dl (0.2-1.3); Blood Urea Nitrogen 18 mg/dl (7-17); Calcium 10.1 mg/dl (8.4-10.2); Carbon Dioxide 26 mmol/L (22.0-30.0); Chloride 108 mmol/L (98-107); Estimated Glomerular Filt Rate 55 ml/min (>60); GFR (African American) 66 ML/MIN (>60); Globulin 2.3 g/dL (1.3-3.2); Glucose 105 mg/dl (74-100); Potassium 4.1 mmoL/L (3.5-5.1); Sodium 140 mmol/L (136-145); Total Protein,Serum 6.6 g/dl (6.3-8.2)
== END ==
PROVIDERS: PCP Internal Medicine; Visit Provider Nurse Practitioner Family
DX: K75.4 Autoimmune hepatitis (principal); K76.0 Fatty (change of) liver, not elsewhere classified; K30 Functional dyspepsia; K22.4 Dyskinesia of esophagus
CPT/HCPCS: 36415; 80053; 85025

== ENCOUNTER 2023-02-07 10:00 | Outpatient (RCR) | payer MEDICARE, SELFPAY | END 2023-02-07 10:05 | disposition home or self-care (01) | LOC: PT 10:00 | PROVIDERS: PCP Internal Medicine; Visit Provider Orthopaedic Surgery Adult Reconstructive Orthopaedic Surgery | DX: S83.412A Sprain of medial collateral ligament of left knee, initial encounter (principal) | CPT/HCPCS: 97010; 97014; 97035; 97110; 97163; 97530; G0283 ==

== ENCOUNTER → 2023-04-30 10:21 | Outpatient (CLI) | payer MEDICARE, SELFPAY ==
[2023-04-30 11:10] LABS: Basophils % 0.4 % (0.1-2.0); Eosinophils # 0.1 K/mm3 (0.0-0.4); Eosinophils % 2.8 % (0.1-12.0); Hematocrit 44.3 % (37.0-47.0); Hemoglobin 14.2 g/dL (12.2-16.2); Lymphocytes # 0.9 K/mm3 (0.7-4.5); Lymphocytes % 18.1 % (10-50); Mean Corpuscular HGB Conc 32.1 g/dL (31.8-35.4); Mean Corpuscular Hemoglobin 33.4 pg (27.0-31.2); Mean Corpuscular Volume 104.1 fl (81-99); Mean Platelet Volume 7.9 fl (7.4-10.4); Monocytes # 0.5 K/mm3 (0.1-1.0); Monocytes % 9.5 % (1.7-9.3); Neutrophils # 3.5 K/mm3 (1.8-7.8); Neutrophils % 69.2 % (37.0-80.0); Platelet Count 206 K/mm3 (142-424); Red Blood Count 4.25 M/mm3 (4.20-5.40); Red Cell Distribution Width 13.8 % (11.5-17.5); White Blood Count 5.1 K/mm3 (4.8-10.8)
[2023-04-30 11:39] LABS: Alanine Aminotransferase 39 U/L (12-78); Albumin Level 4.6 g/dl (3.5-5.0); Alkaline Phosphatase 61 U/L (38-126); Anion Gap 13.3 mEq/L (5-15); Aspartate Amino Transferase 40 U/L (14-36); Bilirubin,Total 1.5 mg/dl (0.2-1.3); Blood Urea Nitrogen 24 mg/dl (7-17); Calcium 9.6 mg/dl (8.4-10.2); Carbon Dioxide 28 mmol/L (22.0-30.0); Chloride 101 mmol/L (98-107); Estimated Glomerular Filt Rate 49 ml/min (>60); GFR (African American) 59 ML/MIN (>60); Globulin 2.3 g/dL (1.3-3.2); Glucose 95 mg/dl (74-100); Potassium 4.3 mmoL/L (3.5-5.1); Sodium 138 mmol/L (136-145); Total Protein,Serum 6.9 g/dl (6.3-8.2)
== END ==
PROVIDERS: PCP Internal Medicine; Visit Provider Nurse Practitioner Family
DX: K75.4 Autoimmune hepatitis (principal); K76.0 Fatty (change of) liver, not elsewhere classified; K30 Functional dyspepsia; K22.4 Dyskinesia of esophagus
CPT/HCPCS: 36415; 80053; 85025

== ENCOUNTER → 2023-08-16 08:02 | Outpatient (CLI) | payer MEDICARE, SELFPAY ==
[2023-08-16 08:08] LABS: MANUAL DIFFERENTIAL MANUAL DIFFERENTIAL (MANUAL DIFF)
[2023-08-16 08:19] LABS: Basophils % 0.6 % (0.1-2.0); Eosinophils # 0.1 K/mm3 (0.0-0.4); Eosinophils % 2.9 % (0.1-12.0); Hematocrit 41.8 % (37.0-47.0); Hemoglobin 13.6 g/dL (12.2-16.2); Lymphocytes % 23.1 % (10-50); Mean Corpuscular HGB Conc 32.5 g/dL (31.8-35.4); Mean Corpuscular Hemoglobin 34.7 pg (27.0-31.2); Mean Corpuscular Volume 106.7 fl (81-99); Mean Platelet Volume 7.8 fl (7.4-10.4); Monocytes # 0.3 K/mm3 (0.1-1.0); Monocytes % 7.8 % (1.7-9.3); Neutrophils # 2.9 K/mm3 (1.8-7.8); Neutrophils % 65.6 % (37.0-80.0); Platelet Count 195 K/mm3 (142-424); Red Blood Count 3.91 M/mm3 (4.20-5.40); Red Cell Distribution Width 13.6 % (11.5-17.5); White Blood Count 4.4 K/mm3 (4.8-10.8)
[2023-08-16 09:48] LABS: Vitamin B12 840 pg/mL (239-931)
[2023-08-16 09:52] LABS: Folate > 20.00 ng/mL
[2023-08-16 10:46] LABS: Eosinophils % 3 % (0-3); Lymphocytes % 31 % (10-50); Monocytes % 5 % (2-9); Neutrophils % 61 % (42-76); Total Cells Counted 100
[2023-08-16 10:48] LABS: Macrocytosis 2+
[2023-08-16 10:49] LABS: Platelet Estimate Normal
[2023-08-23 10:11] LABS: Methylmalonic Acid 123 nmol/L (0-378)
== END ==
PROVIDERS: PCP Internal Medicine; Visit Provider Specialist
DX: D75.89 Other specified diseases of blood and blood-forming organs (principal); K75.4 Autoimmune hepatitis; K76.0 Fatty (change of) liver, not elsewhere classified; K30 Functional dyspepsia
CPT/HCPCS: 36415; 82607; 82746; 83921; 85007; 85014; 85018; 85048; 85049

== ENCOUNTER 2023-08-18 18:10 | Emergency (ER) | payer MEDICARE, SELFPAY ==
--- NOTE | 2023-08-18 18:10 | ECG_ITS ---
APPROVED REPORT Exam: Resting ECG HR:70 bpm ECG Measurements Heart Rate 70 AXES NC 177 P -9 QRSd 89 QRS 27 QT 350 T 32 QTc 371 Conclusion SINUS RHYTHM NORMAL ECG UNCONFIRMED REPORT Electronically signed by : Philipp Ortega MD 08/19/2023 19:25:07
[2023-08-18 18:29] VITALS: BP 161/92; PULSE 74; RESP 12; TEMP 36.7; O2SAT 96; BMI 27.3
--- NOTE | 2023-08-18 18:30 | XR_ITS ---
PROCEDURE INFORMATION: Exam: XR Chest Exam date and time: 08/18/2023 7:12 PM Age: 72 years old Clinical indication: Pain; Chest pressure; Additional info: Chest pain TECHNIQUE: Imaging protocol: Radiologic exam of the chest. Views: 1 view. COMPARISON: CR XR CHEST PORTABLE 08/20/2022 5:40 PM FINDINGS: Lungs: Unremarkable. No consolidation. Pleural spaces: Unremarkable. No pleural effusion. No pneumothorax. Heart/Mediastinum: Heart size is mildly enlarged but stable. Vascularity appears normal. Bones/joints: Unremarkable. IMPRESSION: Stable chest x-ray with no acute disease. Stable mild cardiomegaly.
--- NOTE | 2023-08-18 18:32 | PC.NURSE ---
DR MCCOY AT BEDSIDE
[2023-08-18 18:46] LABS: Basophils % 0.3 % (0.1-2.0); Eosinophils # 0.1 K/mm3 (0.0-0.4); Eosinophils % 1.2 % (0.1-12.0); Hematocrit 42.9 % (37.0-47.0); Hemoglobin 14.5 g/dL (12.2-16.2); Lymphocytes # 0.7 K/mm3 (0.7-4.5); Lymphocytes % 10.4 % (10-50); Mean Corpuscular HGB Conc 33.8 g/dL (31.8-35.4); Mean Corpuscular Hemoglobin 35.5 pg (27.0-31.2); Mean Platelet Volume 7.4 fl (7.4-10.4); Monocytes # 0.4 K/mm3 (0.1-1.0); Monocytes % 6.2 % (1.7-9.3); Neutrophils # 5.1 K/mm3 (1.8-7.8); Neutrophils % 81.9 % (37.0-80.0); Platelet Count 214 K/mm3 (142-424); Red Blood Count 4.09 M/mm3 (4.20-5.40); Red Cell Distribution Width 13.7 % (11.5-17.5); White Blood Count 6.3 K/mm3 (4.8-10.8)
--- NOTE | 2023-08-18 18:50 | HMH.EDGENADL ---
Discharge Plan Disposition Patient Disposition: Home, Self-Care Chief Complaint: Chest Pain Prescriptions Prescriptions: No Action clopidogrel 75 mg tablet 75 mg PO DAILY lansoprazole 30 mg capsule,delayed release(DR/EC) 30 mg PO DAILY nitroglycerin 0.4 mg tablet, sublingual 0.4 mg sublingual Q5-15M PRN fexofenadine [Allergy Relief (fexofenadine)] 180 mg tablet 180 mg PO DAILY vitamin B complex Tablet 1 tab PO DAILY spironolactone 25 mg tablet 25 mg PO DAILY Qty: 90 3RF metoprolol succinate 25 mg tablet extended release 24 hr 25 mg PO DAILY Qty: 90 3RF losartan 25 mg tablet 25 mg PO HS Qty: 90 3RF atorvastatin 40 mg tablet 40 mg PO HS Qty: 90 3RF metformin 500 MG tablet 500 mg PO BID prednisone 5 MG tablet 5 mg PO DAILY fluticasone propionate 120 SPR/BOT bottle 2 spr NS DAILY multivitamin 1 EACH tablet 1 each PO DAILY aspirin 81 MG tablet,delayed release (DR/EC) 81 mg PO DAILY flaxseed oil 1,000 MG capsule 1,000 mg PO DAILY calcium carbonate-vitamin D3 1 EACH tablet,chewable 30 mg PO DAILY alpha lipoic acid 200 MG capsule 200 mg PO DAILY cholecalciferol (vitamin D3) 50 MCG capsule 25 mcg PO DAILY vitamin E succinate 400 UNIT tablet 180 mg PO BID Referrals Follow up/Referrals: Jimi Mcdermott [Primary Care Provider] - See instructions Activity Restrictions/Add. Instructions Additional Instructions/Restrictions: Call your family doctor to establish care for this visit to the emergency department and schedule follow-up within 48 hours to ensure improvement. If you have any worsening of your condition or any other concerning signs or symptoms, return to the emergency department or your primary care doctor for further evaluation. Also follow-up with cardiology to have repeat evaluation. Clinical Impressions Clinical Impression: Chest pain Discharge ED Provider: Neil Garvey General Adult HPI General Chief complaint: Chest Pain Stated complaint: chest pain Time Seen by Provider: 08/18/23 18:15 Mode of Arrival: Ambulatory Source of Information: Patient Limitations: No Limitations Description of Symptoms (Recalled from ER Triage Doc. by RN): pt presents with c/o chest pain. pt reports similar symptoms last night. these symptoms began today. pt located in middle of chest and radiates into her shoulders. History of Present Illness HPI narrative: 72-year-old female with history of CAD, hypertension, hyperlipidemia, DIANDRA presenting with chest pain. Started earlier today, 08/18 just before eating. Nonexertional, nonpositional, not associate with shortness of breath, but patient states she has broken out in a sweat once. Denies syncopal episodes or neurologic deficits. Mild pressure, radiates to right shoulder blade. Related Data Home Medications Medication Instructions Recorded Confirmed fluticasone propionate 50 2 spr intranasal DAILY allergies 11/01/18 08/14/23 mcg/actuation nasal spray,suspension metformin 500 mg tablet 500 mg PO BID Diabetes 11/01/18 08/14/23 prednisone 5 mg tablet 5 mg PO DAILY autoimmune hepatitis 11/01/18 08/14/23 alpha lipoic acid 200 mg capsule 200 mg PO DAILY Supplement 05/22/21 08/14/23 aspirin 81 mg tablet,delayed 81 mg PO DAILY heart healthy 05/22/21 08/14/23 release calcium carbonate 500 mg-vitamin 30 mg PO DAILY Supplement 05/22/21 08/14/23 D3 2.5 mcg (100 unit) chewable tablet cholecalciferol (vitamin D3) 50 25 mcg PO DAILY Supplement 05/22/21 08/14/23 mcg (2,000 unit) capsule flaxseed oil 1,000 mg capsule 1,000 mg PO DAILY Supplement 05/22/21 08/14/23 multivitamin 1 each PO DAILY Supplement 05/22/21 08/14/23 vitamin E succinate 268 mg (400 180 mg PO BID Supplement 05/22/21 08/14/23 unit) tablet vitamin B complex 1 tab PO DAILY 08/27/22 08/14/23 clopidogrel 75 mg tablet 75 mg PO DAILY 02/25/23 08/14/23 lansoprazole 30 mg capsule,delayed 3
--- NOTE | 2023-08-18 18:57 | PC.NURSE ---
Rad was at bedside for portable cxr
[2023-08-18 19:04] LABS: Chloride 107 mmol/L (98-107)
[2023-08-18 19:05] LABS: Potassium 5.3 mmoL/L (3.5-5.1); Sodium 137 mmol/L (136-145)
[2023-08-18 19:07] LABS: Alanine Aminotransferase 35 U/L (12-78); Anion Gap 10.3 mEq/L (5-15); Aspartate Amino Transferase 43 U/L (14-36); Blood Urea Nitrogen 21 mg/dl (7-17); Carbon Dioxide 25 mmol/L (22.0-30.0); Creatinine Clearance Estimated 64 mL/min (50-200); Estimated Glomerular Filt Rate 71 ml/min (>60); GFR (African American) 85 ML/MIN (>60)
[2023-08-18 19:08] LABS: Albumin Level 4.2 g/dl (3.5-5.0); Albumin/Globulin Ratio 1.7 (1.1-1.8); Alkaline Phosphatase 53 U/L (38-126); Calcium 9.9 mg/dl (8.4-10.2); Globulin 2.5 g/dL (1.3-3.2); Glucose 125 mg/dl (74-100); Total Protein,Serum 6.7 g/dl (6.3-8.2)
[2023-08-18 19:18] LABS: NT Pro Brain Natriuretic Pep. 123 pg/mL (0-125)
[2023-08-18 19:21] LABS: Troponin I < 0.01 ng/ml (0.00-0.034)
[2023-08-18 21:51] LABS: Troponin I < 0.01 ng/ml (0.00-0.034)
[2023-08-18 22:03] VITALS: BP 120/74; PULSE 67; RESP 16; TEMP 36.6; O2SAT 95
== END 2023-08-18 23:22 | disposition home or self-care (01) ==
PROVIDERS: Emergency Provider Emergency Medicine; PCP Internal Medicine
DX: R07.89 Other chest pain (principal); I25.10 Atherosclerotic heart disease of native coronary artery without angina pectoris; I11.9 Hypertensive heart disease without heart failure; E87.5 Hyperkalemia; G47.33 Obstructive sleep apnea (adult) (pediatric); K75.4 Autoimmune hepatitis
CPT/HCPCS: 71045; 80053; 83880; 84484; 85025; 93005; 99284

== ENCOUNTER → 2023-09-12 12:10 | Outpatient (CLI) | payer MEDICARE, SELFPAY ==
--- NOTE | 2023-09-12 12:12 | CA_ITS ---
FINAL REPORT TECHNIQUE: Color Doppler, duplex Doppler and hill scale sonography of the bilateral neck arterial vasculature was performed. Velocities were measured in the carotid arteries. Stenosis evaluation based on the validated velocity criteria. CLINICAL HISTORY: mian, dizziness, HTN COMPARISON: None FINDINGS: The peak systolic velocity of the right common carotid artery is 95 cm/s. The peak systolic velocity of the right internal carotid artery is 77 cm/s and end diastolic velocity 12 cm/s. The ICA/CCA ratio is 0.91. A mild amount of plaque is present. The right external carotid artery is patent. The right vertebral artery is patent with antegrade flow. The peak systolic velocity of the left common carotid artery is 101 cm/s. The peak systolic velocity of the left internal carotid artery is 92 cm/s and end diastolic velocity 27 cm/s. The ICA/CCA ratio is 1.14. A mild amount of plaque is present. The left external carotid artery is patent.The left vertebral artery is patent with antegrade flow. IMPRESSION: No significant stenosis bilateral carotid arteries. Bilateral patent vertebral arteries with antegrade flow. If indicated, CTA or MRA could further evaluate. Reviewed, Interpreted and Dictated by Jeffery Watkins MD Transcribed by Mayra Christy Authenticated and [facility]
== END ==
PROVIDERS: PCP Internal Medicine; Visit Provider Nurse Practitioner Family
DX: I65.23 Occlusion and stenosis of bilateral carotid arteries (principal)
CPT/HCPCS: 93880

== ENCOUNTER → 2023-10-28 08:53 | Outpatient (CLI) | payer MEDICARE, SELFPAY ==
[2023-10-28 09:12] LABS: Basophils % 0.7 % (0.1-2.0); Eosinophils # 0.1 K/mm3 (0.0-0.4); Eosinophils % 3.8 % (0.1-12.0); Hematocrit 40.8 % (37.0-47.0); Hemoglobin 13.4 g/dL (12.2-16.2); Lymphocytes # 0.8 K/mm3 (0.7-4.5); Mean Corpuscular Hemoglobin 34.2 pg (27.0-31.2); Mean Corpuscular Volume 103.9 fl (81-99); Monocytes # 0.3 K/mm3 (0.1-1.0); Monocytes % 9.1 % (1.7-9.3); Neutrophils # 2.3 K/mm3 (1.8-7.8); Neutrophils % 63.5 % (37.0-80.0); Platelet Count 202 K/mm3 (142-424); Red Blood Count 3.92 M/mm3 (4.20-5.40); Red Cell Distribution Width 13.5 % (11.5-17.5); White Blood Count 3.7 K/mm3 (4.8-10.8)
[2023-10-28 12:59] LABS: Chloride 105 mmol/L (98-107); Potassium 4.4 mmoL/L (3.5-5.1); Sodium 139 mmol/L (136-145)
[2023-10-28 13:01] LABS: Blood Urea Nitrogen 27 mg/dl (7-17); Estimated Glomerular Filt Rate 55 ml/min (>60); GFR (African American) 66 ML/MIN (>60)
[2023-10-28 13:02] LABS: Alanine Aminotransferase 32 U/L (12-78); Albumin Level 4.3 g/dl (3.5-5.0); Albumin/Globulin Ratio 1.8 (1.1-1.8); Alkaline Phosphatase 50 U/L (38-126); Anion Gap 13.4 mEq/L (5-15); Aspartate Amino Transferase 40 U/L (14-36); Bilirubin,Total 1.4 mg/dl (0.2-1.3); Calcium 9.8 mg/dl (8.4-10.2); Carbon Dioxide 25 mmol/L (22.0-30.0); Globulin 2.4 g/dL (1.3-3.2); Glucose 92 mg/dl (74-100); Total Protein,Serum 6.7 g/dl (6.3-8.2)
== END ==
PROVIDERS: Nurse Practitioner Family; PCP Internal Medicine; Visit Provider Internal Medicine Gastroenterology
DX: K75.4 Autoimmune hepatitis (principal); K76.0 Fatty (change of) liver, not elsewhere classified; K30 Functional dyspepsia; K22.4 Dyskinesia of esophagus
CPT/HCPCS: 36415; 80053; 85025

== ENCOUNTER 2023-11-11 07:56 | Outpatient (CLI) | payer MEDICARE, SELFPAY ==
--- NOTE | 2023-11-11 08:31 | US_ITS ---
FINAL REPORT CLINICAL HISTORY: FATTY LIVER,ABN LFT,FUNCTIONAL DYSPEPSIA COMPARISON: None FINDINGS: Sonographic images of the right upper quadrant were obtained. The pancreas is partially obscured. Fatty infiltration of the liver is present. The gallbladder is surgically absent. There is no evidence of biliary ductal dilatation.The common duct measures 3 mm. Limited images of the right kidney are unremarkable other than a small a small right renal cyst. IMPRESSION: Fatty infiltration of the liver. Prior cholecystectomy without evidence of biliary ductal dilatation. Reviewed, Interpreted and Dictated by Fermin Cason III, MD Transcribed by Debbie Guadarrama Authenticated and . [facility]
[2023-11-11 09:55] LABS: Chloride 106 mmol/L (98-107); Potassium 4.5 mmoL/L (3.5-5.1); Sodium 139 mmol/L (136-145)
[2023-11-11 09:58] LABS: Alanine Aminotransferase 37 U/L (12-78); Albumin Level 4.4 g/dl (3.5-5.0); Albumin/Globulin Ratio 1.8 (1.1-1.8); Alkaline Phosphatase 83 U/L (38-126); Anion Gap 12.5 mEq/L (5-15); Aspartate Amino Transferase 36 U/L (14-36); Bilirubin,Indirect 0.9 mg/dL (0.0-0.9); Bilirubin,Total 0.9 mg/dl (0.2-1.3); Bilirubin,Unconjugated 0.9 mg/dL (0.0-1.1); Blood Urea Nitrogen 23 mg/dl (7-17); Calcium 10.4 mg/dl (8.4-10.2); Carbon Dioxide 25 mmol/L (22.0-30.0); Estimated Glomerular Filt Rate 55 ml/min (>60); GFR (African American) 66 ML/MIN (>60); Globulin 2.5 g/dL (1.3-3.2); Glucose 108 mg/dl (74-100); Total Protein,Serum 6.9 g/dl (6.3-8.2)
[2023-11-19 08:56] LABS: Fibrosis Score 0.48; Fibrosis Stage F1-F2
[2023-11-19 08:57] LABS: Steatosis Grade S1; Steatosis Score 0.41
[2023-11-19 08:58] LABS: Alpha 2-Macroglobulins, Qn 393; Haptoglobin 166; NASH Grade N2; NASH Score 0.73
[2023-11-19 08:59] LABS: ALT (SGPT) P5P 30; AST (SGOT) P5P 24; Apolipoprotein A-1 177; Bilirubin, Total 0.6; GGT 23
[2023-11-19 09:00] LABS: Cholesterol, Total 147; Glucose 113; Triglycerides 131
== END 2023-11-11 23:59 ==
LOC: RAD 07:58
PROVIDERS: PCP Internal Medicine; Visit Provider Nurse Practitioner Family
DX: K75.4 Autoimmune hepatitis (principal); K76.0 Fatty (change of) liver, not elsewhere classified; R94.5 Abnormal results of liver function studies; K30 Functional dyspepsia
CPT/HCPCS: 36415; 76705; 80053; 80076

== ENCOUNTER 2023-12-17 08:11 | Outpatient (CLI) | payer MEDICARE, SELFPAY ==
[2023-12-17 08:37] LABS: Basophils % 0.3 % (0.1-2.0); Eosinophils # 0.2 K/mm3 (0.0-0.4); Eosinophils % 3.7 % (0.1-12.0); Hematocrit 43.8 % (37.0-47.0); Hemoglobin 14.3 g/dL (12.2-16.2); Mean Corpuscular HGB Conc 32.6 g/dL (31.8-35.4); Mean Corpuscular Hemoglobin 34.2 pg (27.0-31.2); Mean Corpuscular Volume 104.9 fl (81-99); Mean Platelet Volume 7.9 fl (7.4-10.4); Monocytes # 0.4 K/mm3 (0.1-1.0); Monocytes % 8.5 % (1.7-9.3); Neutrophils % 65.4 % (37.0-80.0); Platelet Count 212 K/mm3 (142-424); Red Blood Count 4.17 M/mm3 (4.20-5.40); Red Cell Distribution Width 13.6 % (11.5-17.5); White Blood Count 4.6 K/mm3 (4.8-10.8)
== END 2023-12-17 23:59 ==
LOC: LAB 08:13
PROVIDERS: PCP Internal Medicine; Visit Provider Internal Medicine Hematology & Oncology
DX: D75.89 Other specified diseases of blood and blood-forming organs (principal); K75.4 Autoimmune hepatitis; K76.0 Fatty (change of) liver, not elsewhere classified; K30 Functional dyspepsia
CPT/HCPCS: 36415; 85025

== ENCOUNTER 2025-03-02 14:39 | Outpatient (CLI) | payer MEDICARE, SELFPAY ==
[2025-03-02 16:07] LABS: Alanine Aminotransferase 41 U/L (12-78); Albumin Level 4.6 g/dl (3.5-5.0); Albumin/Globulin Ratio 2.2 (1.1-1.8); Alkaline Phosphatase 60 U/L (38-126); Anion Gap 8.6 mEq/L (5-15); Aspartate Amino Transferase 46 U/L (14-36); Bilirubin,Total 1.3 mg/dl (0.2-1.3); Blood Urea Nitrogen 19 mg/dl (7-17); Calcium 10.1 mg/dl (8.4-10.2); Carbon Dioxide 25 mmol/L (22.0-30.0); Chloride 109 mmol/L (98-107); Estimated Glomerular Filt Rate 49 ml/min (>60); GFR (African American) 59 ML/MIN (>60); Globulin 2.1 g/dL (1.3-3.2); Glucose 121 mg/dl (74-100); Potassium 4.6 mmoL/L (3.5-5.1); Sodium 138 mmol/L (136-145); Total Protein,Serum 6.7 g/dl (6.3-8.2)
== END 2025-03-02 23:59 | disposition home or self-care (01) ==
LOC: LAB 14:39
PROVIDERS: PCP Internal Medicine; Visit Provider Internal Medicine Gastroenterology
DX: K75.4 Autoimmune hepatitis (principal)
CPT/HCPCS: 36415; 80053

== ENCOUNTER 2025-04-28 15:05 | Emergency (ER) | payer MEDICARE, SELFPAY ==
--- NOTE | 2025-04-28 15:13 | CT_ITS ---
FINAL REPORT CLINICAL HISTORY: possible stroke Headache, Dizziness FINDINGS: CTA HEAD TECHNIQUE: Thin section axial CT with contrast with 3D MIP reconstruction This study was performed with techniques to keep radiation doses as low as reasonably achievable, (ALARA). Individualized dose reduction techniques using automated exposure control or adjustment of mA and/or kV according to the patient''s size were employed. No aneurysm is seen. Major intracranial vessels are patent without significant stenosis. . IMPRESSION: Unremarkable This study was performed using automated techniques to achieve radiation exposure as low as reasonably achievable Reviewed, Interpreted and Dictated by Nikolai Barber MD Transcribed by Gianna Zhou Authenticated and [facility]
--- NOTE | 2025-04-28 15:13 | CT_ITS ---
FINAL REPORT CLINICAL HISTORY: possible stroke Headache, Dizziness FINDINGS: CT NECK ANGIO, WITHOUT AND WITH CONTRAST TECHNIQUE: Thin section axial CT with contrast with multiplanar 3D MIP reconstruction. This study was performed with techniques to keep radiation doses as low as reasonably achievable, (ALARA). Individualized dose reduction techniques using automated exposure control or adjustment of mA and/or kV according to the patient''s size were employed. NASCET criteria and technique was utilized during interpretation. Aortic arch: Arch shows no significant narrowing. Great vessel origins are widely patent. Right carotid: No significant stenosis is seen of the cervical common or internal carotid artery. Left carotid: No significant stenosis is seen of the cervical common or internal carotid artery. Vertebrals: Left vertebral artery is dominant. No significant stenosis is present. IMPRESSION: No significant stenosis of the cervical carotid arteries This study was performed using automated techniques to achieve radiation exposure as low as reasonably Reviewed, Interpreted and Dictated by Nikolai Barber MD Transcribed by Gianna Zhou Authenticated and [facility]
--- NOTE | 2025-04-28 15:13 | CT_ITS ---
FINAL REPORT TECHNIQUE: Noncontrast exam This study was performed with techniques to keep radiation doses as low as reasonably achievable, (ALARA). Individualized dose reduction techniques using automated exposure control or adjustment of mA and/or kV according to the patient''s size were employed. CLINICAL HISTORY: possible stroke. Headache and dizziness. FINDINGS: Mild atrophy and chronic ischemic white matter changes are noted. No cortical edema is present. There is no mass or hemorrhage. Ventricles are normal. Bone windows show no skull fracture or obvious obstructive lesion. IMPRESSION: 1. No acute intracranial abnormality or obvious mass. 2. Atrophy and chronic ischemic white matter changes as above. Reviewed, Interpreted and Dictated by Nikolai Barber MD Transcribed by Gianna Zhou Authenticated and [facility]
[2025-04-28 15:17] VITALS: BP 160/80; PULSE 67; RESP 16; TEMP 36.6; O2SAT 98; BMI 29.9
--- OUTSIDE RECORDS SUMMARY | 2025-04-28 15:18 | XMS_ITS | Clinical Summary ---
Author Organization [facility] Address [address] [place] [address] Care Team Providers Care Welfare Project Manager Name Role Phone Jimi Mcdermott MD Primary Care Provider [phone] Social History Tobacco Use Types Packs/Day Years Used Date Smoking Tobacco: Never Assessed Comments Unknown Sex and Gender Information Value Date Recorded Sex Assigned at Not on file Legal Sex Female 6:56 PM EDT Gender Identity Not on file Sexual Orientation Not on file Plan of Treatment Upcoming Encounters Date Type Department Care Team (Late st Contact Info) Description 08/17/2025 10:00 AM EDT Ovarian Cancer Screening [facility] Gynecology [address] [facility]rd [place] [address] Health Maintenance Due Date Last Done Comments [facility]-Depression Screening 1950 [facility]-/Child/Adol SDOH Screenings 1950 [facility]- SDOH Screenings 1968 [facility]-Adult SDOH Screenings 1968 CT Colonography 1995 Colonoscopy 1995 FIT-DNA 1995 FIT 1995 FOBT 1995 Sigmoidoscopy 1995 [facility]-Colorectal Cancer Screening 1995 [id number] Vaccine ( season) 2024 08/29/2023, 09/03/2022, 04/22/2022, Additional history exists REPLACED BY [facility]-Medicare Annual Wellness (AWV) 06/01/2025 06/01/2024, 01/13/2023 [facility]-Bone Density Scan 07/01/2026 07/01/2024 , 01/10/2022, 01/10/2022, Additional history exists [facility]-Breast Cancer Screening 07/01/202606/04, 07/01/2024, 06/26/2023, Additional history exists [facility]-DTaP,Tdap,and Td Vaccines (2 - Td or Tdap) 08/27/2031 08/27/2021 [facility]-Pneumococcal Vaccine: 50+ Years Completed 08/29/2017, 08/10/2016 [facility]-Zoster Vaccines Completed 12/07/2019, [facility]-Hepatitis C Screening Completed 10/11/2022 [facility]-RSV Vaccine: 60+ Years or Completed 09/19/2023 [facility]-Influenza Vaccine Completed 08/09/2024 , 07/21/2023, 07/12/2022, Additional history exists HPV Vaccines Aged Out No longer eligi ble based on patient's age to complete this topic [facility]-HIB Vaccines Aged Out No longer e ligible based on patient's age to complete this topic [facility]-Hepatitis A Vaccines Aged Out No longer eligible based on patient's age to complete this topic [facility]-IPV Vaccines Aged Out No longer e ligible based on patient's age to complete this topic [facility]-Rotavirus Vaccines Aged Out No lo nger eligible based on patient's age to complete this topic [place] [address] [place] [address] MEDICARE Care Teams Welfare Project Manager Relationship Specialty Start Date End Date Jimi Mcdermott MD [address] [place] [address] [place] [address] PCP - General 03/04/22
--- OUTSIDE RECORDS SUMMARY | 2025-04-28 15:18 | XMS_ITS | Encounter Summary ---
Author Organization [employer] Address [address] [place] [address] Care Team Providers Care Railroad Firer/Fireman Name Role Phone Jimi Mcdermott MD Primary Care Provider [phone] Cynthia Pink APRN Unavailable [phone] Tyler WIGGINS Md, Chris FARMER Unavailable [phone] Reason for Referral * Mammography (Routine) - Authorized Specialty Diagnoses / Procedures Referred By Contac t Referred To Contact Radiology Diagnoses Visit for screening mammogram Procedures MM digital mammo screen with andressa bilateral Jimi Mcdermott MD [address] [place] [address] [place] [address] Phone: tel: fax: [facility] [address] [place] [address] Phone: tel: fax: Referral ID Status Reason Start Date Expiration Date V isits Requested Visits Authorized [id number] Authorized 07/06/2025 07/06/2026 1 1 Encounter Details Date Type Department Care Team (Late st Contact Info) Description 06/24/2024 Outside Orders [facility] [address] [place] [address] Jimi Mcdermott MD [address] [place] [address] [place] [address] Visit for screening mammogram (Primary Dx) Social History Tobacco Use Types Packs/Day Years Used Date Smoking Tobacco: Never Assessed Interpersonal Safety Answer Date Record ed Family or friends hurt you Not on file 11/14 Family or friends insult you Not on file 10/2024 Family or friends threaten you Not on file 0 11/14/2023 Family or friends scream or curse at you Not on file 11/14/2023 Housing Stability Answer Date Recorded Living situation today Not on file Living situation problems Not on file 2023 Food Insecurity Answer Date Recorded Food run out past 12 months Not on file 11/03 Food did not last past 12 months Not on file 11/14/2023 Employment Answer Date Recorded Help finding and keeping a job Not on file 0 11/14/2023 Family and Community Support Answer Zi e Recorded Help with Day to Day Activities Not on file 11/14/2023 Feeling Lonely or Isolated Not on file 11/14 Educational Attainment Answer Date Josh rded Speak language other than Faroese at home Not on file 11/14/2023 Want help with school or training Not on file 11/14/2023 Depression Answer Date Recorded PHQ-2 Risk Not on file 11/14/2023 Disabilities Answer Date Recorded Difficulty concentrating Not on file 024 Difficulty doing errands alone Not on file 0 11/14/2023 Substance Use Answer Date Recorded Used prescription meds for non-medical reasons N ot on file 11/14/2023 Used illegal drugs past 12 months Not on file 11/14/2023 Comments Unknown Sex and Gender Information Value Date Recorded Sex Assigned at Female 04/30/2022 5:10 PM CDT Legal Sex Female 5:10 PM CDT Gender Identity Female 04/30/2022 5:10 PM CDT Sexual Orientation Not on file documented as of this encounter Plan of Treatment Upcoming Encounters Date Type Department Care Team (Late st Contact Info) Description 07/06/2025 1:30 PM EDT Appointment [address] [address] Scheduled Orders Name Type Priority Associated Diagnoses Orde r Schedule MM digital mammo screen with andressa bilateral Imaging Routine Visit for screening mammogram Expected: 07/06/2025, Expires: 07/06/2026 documented as of this encounter Visit Diagnoses Diagnosis Visit for screening mammogram- Primary documented in this encounter Care Teams Railroad Firer/Fireman Relationship Specialty Start Date End Date West, Jimi Kevin MD [address] [place] [address] PCP - General General Internal Medicine 06/26/23 East, JAX Marie [address] [place] [address] Nurse Practitioner Women's Health 06/26/23 Tyler WIGGINS Md, MD Chris [address] [facility] [address] [place] [address] Referring Physician Gastroenterology 07/01/24 documented as of this encounter
--- OUTSIDE RECORDS SUMMARY | 2025-04-28 15:18 | XMS_ITS | Clinical Summary ---
Author Organization [employer] Address [address] [place] [address] Care Team Providers Care Plant Worker Name Role Phone Jimi Mcdermott MD Primary Care Provider [phone] Joesph Cynthiaramona CAMARA Unavailable [phone] Tyler WIGGINS Md, Chris FARMER Unavailable [phone] Social History Tobacco Use Types Packs/Day Years [...] Date Josh rded Speak language other than Japanese at home Not on file 11/14/2023 Want [...] PM CDT Sexual Orientation Not on file Plan of Treatment Upcoming Encounters Date Type Department Care Team (Late st Contact Info) Description 07/06/2025 1:30 PM EDT Appointment [address] [address] Health Maintenance Due Date Last Done Comments CT Colonography 1950 Colonoscopy 1950 Colorectal Cancer Screening 1950 FOBT/FIT 1950 Fit-DNA (Cologuard) 1950 Sigmoidoscopy 1950 Depression Screening (12+) 1962 Tobacco Cessation Counseling and Screening (12+) 1962 Hepatitis C Screening 1968 COVID-19 VACCINE (2023-2 5 season) 2024 09/03/2022, 04/22/2022, 09/10/2021, Additional history exists Falls Risk Screening 11/03/2024 Influenza Vaccine (Season Ended) 2025 07/21/2023, 07/12/2022, 08/27/2021, Additional history exists Respiratory Syncytial Virus (RSV) Adult or (1 - 1-dose 75+ series) 2025 Breast Cancer Screening 07/01/2026 07/01/20 24, 06/26/2023, 06/25/2022, Additional history exists DXA SCAN 07/01/2026 07/01/2024 DTAP/TDAP/TD VACCINES (2 - T d or Tdap) 08/27/2031 08/27/2021 Pneumococcal 50+ years Completed 8, 08/29/2017, 08/10/2016 Shingles Vaccine (Zoster) Completed 12/07/2019, Procedures Procedure Name Priority Date/Time Associated Diagnosis Comments DXA BONE DENSITY SPINE AND HIP Routine 07/01/2024 2:00 PM EDT Postmenopausal Screening for osteoporosis MM DIGITAL MAMMO SCREEN WITH ETTA BILATERAL Routine 07/01/2024 2:00 PM EDT Visit for screening mammogram from Last 3 Months or Most Recently Relevant to Health Maintenance Results * DXA bone density spine and hip (07/01/2024 2:00 PM EDT) Anatomical Region Laterality Modality Bone Dual-energy X-ra y absorptiometry (DEXA) 07/01/2024 2:06 PM EDT Impressions 07/01/2024 2:15 PM EDT Normal bone mineral density of the lumbar spine. Osteopenia of the left hip. Images reviewed, interpreted, and dictated by Dr. Brandi Pak. Transcribed by Lane Rodriguez PA-C, R.T. (N), C N M T. Images reviewed, interpreted, and dictated by Dr. Brandi Pak. Transcribed by Lane Rodriguez PA-C. Narrative 07/01/2024 2:15 PM EDT BONE DENSITY SCAN (DEXA) INDICATION: Osteoporosis screening COMPARISON: None FINDINGS: Bone mineral density evaluation of the spine and femurs was obtained. Average BMD of the lumbar spine measures 1.450 g/sq cm, with a T-score of 2.2 and Z-score of 3.4. This is considered within the normal range. BMD of the left femoral neck measures 0.826 g/sq cm, with a T-score of -1.5 and Z-score of 0.0. This is considered within the osteopenic range. FRAX evaluation gives the risk of a major osteoporotic fracture over 10 years as 16.4% and the risk of a hip fracture as 3.4%. Procedure Note Pattie Pak MD - 07/01/2024 BONE DENSITY SCAN (DEXA) INDICATION: Osteoporosis screening COMPARISON: None FINDINGS: Bone mineral density evaluation of the spine and femurs was obtained. Average BMD of the lumbar spine measures 1.450 g/sq cm, with a T-score of 2.2 and Z-score of 3.4. This is considered within the normal range. BMD of the left femoral neck measures 0.826 g/sq cm, with a T-score of -1.5 and Z-score of 0.0. This is considered within the osteopenic range. FRAX evaluation gives the risk of a major osteoporotic fracture over 10 years as 16.4% and the risk of a hip fracture as 3.4%. IMPRESSION: Normal bone mineral density of the lumbar spine. Osteopenia of the left hip. Images reviewed, interpreted, and dictated by Dr. Brandi Pak. Transcribed by Lane Rodriguez PA-C, R.T. (N), C N M T. Images reviewed, interpreted, and dictated by Dr. Brandi Pak. Transcribed by Lane Rodriguez PA-C. Cynthia Pink APRN [facility] DXA ORDERABLES Final Resu lt * MM digital mammo screen with etta bilateral (07/01/2024 2:00 PM EDT) Anatomical Region Laterality Modality Breast Bilateral Mammography 07/05/2024 7:40 PM EDT Impressions 07/05/2024 7:45 PM EDT FINAL IMPRESSION: ACR BI-RADS 2: Benign findings. RECOMMENDATIONS: Routine annual screening mammography. A letter including results and recommendations was sent to the patient. Density notification was provided to patients with type 3 or 4 breast tissue pattern. Patient information entered into a reminder system with a target due date for the next mammogram. At our facility, a [place] marker is positioned over a visible skin lesion and a linear marker is used to indicate a scar. A triangular marker is placed on a self reported palpable finding. Note: Mammography does not detect approximately 10-15% of breast cancers. An annual clinical breast exam by the patient's breast care physician and regular monthly self breast exams by the patient are integral parts of breast cancer screening, in addition to annual mammography. A normal mammogram does not completely exclude the presence of breast cancer, especially if there is an abnormal finding on physical exam. When clinically indicated, a biopsy should not be deferred because of a normal mammogram report. cc: Narrative 07/05/2024 7:45 PM EDT PROCEDURE: Bilateral digital screening mammogram with tomosynthesis. REASON FOR EXAM: Routine screening. FAMILY HISTORY: There is no family history of breast cancer. COMPARISON STUDY: [facility] FINDINGS: Craniocaudal and mediolateral oblique images of both breasts were obtained in 2D, C-view, and 3D modes. The breast tissue is heterogeneously dense, which may obscure small masses. There has been no significant change. Bilateral round calcifications are present. A biopsy marker is again noted in the right subareolar location. A 5 mm nodular asymmetry is noted in the superior half of the right breast on the MLO view. It appears identical on the 2019 examination and has appearance of normal tissue on DBT images. There is no evidence of dominant mass, architectural distortion, or suspicious calcifications. This examination was reviewed with the benefit of computer-aided detection (CAD). us Jimi Mcdermott MD IMG MAMMOGRAPHY ORDERABLES Fin al Result from Last 3 Months or Most Recently Relevant to Health Maintenance Insurance [facility] COMM[facility]CIAL [facility] MEDICARE PPO Care Teams Plant Worker Relationship Specialty Start Date End Date Jimi Mcdermott MD [address] [place] [address] [place] [address] PCP - General General Internal Medicine 06/26/23 Cynthia Pink APRN [address] [facility] [address] [place] [address] Nurse Practitioner Women's Health 06/26/23 Tyler WIGGINS Md, MD Chris [address] [place] [address] Referring Physician Gastroenterology 07/01/24
--- OUTSIDE RECORDS SUMMARY | 2025-04-28 15:18 | XMS_ITS | Referral Summary ---
Author Organization [employer] Address [address] [place] [address] Care Team Providers Care Firer Automatic Stoker Name Role Phone Jimi Mcdermott MD Primary Care Provider [phone] Joesph Cynthiaramona CAMARA Unavailable [phone] Tyler WIGGINS Md, Chris FARMER Unavailable [phone] Social History Tobacco Use Types Packs/Day Years [...] Date Josh rded Speak language other than Korean at home Not on file 11/14/2023 Want [...] Info) Description 07/06/2025 1:30 PM EDT Appointment [address] [address] Procedures Procedure Name Priority Date/Time Associated Diagnosis [...] Brandi Pak. Transcribed by Lane Rodriguez PA-C. [facility] DXA ORDERABLES Final Resu lt * MM [...] the next mammogram. At our facility, a [place] marker is positioned over a visible skin [...] family history of breast cancer. COMPARISON STUDY: [facility] [phone] FINDINGS: Craniocaudal and mediolateral oblique images of [...] with the benefit of computer-aided detection (CAD). Jimi Mcdermott MD IMG MAMMOGRAPHY ORDERABLES Fin al Result from Last 3 Months or Most Recently Relevant to Health Maintenance Insurance [employer] MEDIC[employer] PPO Care Teams Firer Automatic Stoker Relationship Specialty Start Date End Date Jimi Mcdermott MD [address] [place] [address] PCP - General General Internal Medicine 06/26/23 Cynthia Pink APRN [address] [facility] [address] [place] [address] Nurse Practitioner Women's Health 06/26/23 Tyler WIGGINS Md, MD Chris [address] [facility] [address] [place] [address] Referring Physician Gastroenterology 07/01/24
--- OUTSIDE RECORDS SUMMARY | 2025-04-28 15:18 | XMS_ITS | Encounter Summary ---
Author Organization [employer] Address [address] [place] [address] Care Team Providers Care Eviscerator Name Role Phone Jimi Mcdermott MD Primary Care Provider [phone] Cynthia Pink APRN Unavailable [phone] Tyler WIGGINS Md, Chris FARMER Unavailable [phone] Reason for Referral * DXA (Routine) - Closed Specialty Diagnoses / Procedures Referred By Contac t Referred To Contact Diagnoses Postmenopausal Screening for osteoporosis Procedures DXA bone density spine and hip Cynthia Pink APRN [address] [place] [address] Phone: tel: fax: Referral ID Status Reason Start Date Expiration Date Visits Re quested Visits Authorized [id number] Closed 06/30/2024 11/08/2024 1 1 Encounter Details Date Type Department Care Team (Latest Contact Info) Description 11/10/2023 Outside Orders [facility] Central Scheduling [address] [place] [address] Cynthia Pink APRN [address] [place] [address] Postmenopausal (Primary Dx); Screening for osteoporosis Social History Tobacco Use Types Packs/Day Years [...] Date Josh rded Speak language other than Tongan at home Not on file 11/14/2023 Want [...] Info) Description 07/06/2025 1:30 PM EDT Appointment [address] [address] documented as of this encounter Results * DXA bone density spine and hip (07/01/2024 2:00 PM EDT) Anatomical Region Laterality Modality Bone Dual-energy X-ra y absorptiometry (DEXA) 07/01/2024 2:06 PM EDT Impressions 07/01/2024 2:15 PM EDT Normal bone mineral density of the lumbar spine. Osteopenia of the left hip. Images reviewed, interpreted, and dictated by Dr. Brandi Pak. Transcribed by Lane Rodriguez PA-C, Allan (N), Sheeba Kevin T. Images reviewed, interpreted, and dictated by [...] Brandi Pak. Transcribed by Lane Rodriguez PA-C, RMariah. (N), Sheeba Lopez. Images reviewed, interpreted, and dictated by Dr. Brandi Pak. Transcribed by Lane Rodriguez PA-C. Cynthia Pink [facility] DXA ORDERABLES Final Resu lt documented in this encounter Visit Diagnoses Diagnosis Postmenopausal- Primary Asymptomatic postmenopausal status (age-related) (natural) Screening for osteoporosis Special screening for osteoporosis Postmenopausal Asymptomatic postmenopausal status (age-related) (natural) Screening for osteoporosis Special screening for osteoporosis documented in this encounter Care Teams Eviscerator Relationship Specialty Start Date End Date Jimi Mcdermott MD [address] [place] [address] [place] [address] PCP - General General Internal Medicine 06/26/23 Cynthia Pink APRN [address] [facility] [address] [place] [address] Nurse Practitioner Women's Health 06/26/23 Tyler WIGGINS Md, MD Chris [address] [facility] [address] [place] [address] Referring Physician Gastroenterology 07/01/24 documented as of this encounter
[2025-04-28 15:26] LABS: Basophils % 0.3 % (0.1-2.0); Eosinophils # 0.1 Kmm3 (0.0-0.4); Hematocrit 42.4 % (37.0-47.0); Hemoglobin 14.1 g/dL (12.2-16.2); Immature Granulocytes # 0.02 10^3uL; Immature Granulocytes % 0.3 %; Lymphocytes # 0.5 K/mm3 (0.7-4.5); Lymphocytes % 7.8 % (10-50); Mean Corpuscular HGB Conc 33.3 g/dL (31.8-35.4); Mean Corpuscular Hemoglobin 33.9 pg (27.0-31.2); Mean Corpuscular Volume 101.9 fl (81-99); Mean Platelet Volume 9.4 fl (7.4-10.4); Monocytes # 0.5 K/mm3 (0.1-1.0); Monocytes % 7.4 % (1.7-9.3); Neutrophils # 5.8 K/mm3 (1.8-7.8); Neutrophils % 83.2 % (37.0-80.0); Nucleated Red Blood Cells # 0 10^3/uL; Nucleated Red Blood Cells % 0 %; Platelet Count 220 K/mm3 (142-424); Red Blood Count 4.16 M/mm3 (4.20-5.40); Red Cell Distribution Width 13.2 % (11.5-17.5); White Blood Count 6.9 K/mm3 (4.8-10.8)
--- NOTE | 2025-04-28 15:28 | HMH.EDGENADL ---
Discharge Plan Disposition Patient Disposition: Home, Self-Care Condition: Good Prescriptions Prescriptions: No Action clopidogrel 75 mg tablet 75 mg PO DAILY lansoprazole 30 mg capsule,delayed release(DR/EC) 30 mg PO DAILY nitroglycerin 0.4 mg tablet, sublingual 0.4 mg sublingual Q5-15M PRN (DME) Accu-Chek Kerry Plus test strp Strip See Rx Instructions .ROUTE .MEDSUPPLY Qty: 10 Rx Instructions: As directed Probiotic Colon Support 240 mg (3 billion cell) capsule PO metformin 500 mg tablet 500 mg PO BID Qty: 60 12RF Rx Instructions: Please take 1 tablet p.o. twice daily prednisone 5 mg tablet 5 mg PO DAILY Qty: 30 12RF Rx Instructions: Please take 1 tablet p.o. daily vitamin B complex Tablet 1 tab PO DAILY melatonin 10 mg capsule 10 mg PO HS PRN spironolactone 25 mg tablet See Rx Instructions .ROUTE .COMPLEX Qty: 90 3RF Dose Instruction: Take 1 tablet by mouth once daily Rx Instructions: Take 1 tablet by mouth once daily metoprolol succinate 25 mg tablet extended release 24 hr See Rx Instructions .ROUTE .COMPLEX Qty: 90 3RF Dose Instruction: TAKE 1 TABLET BY MOUTH ONCE DAILY FOR HIGH BLOOD PRESSURE Rx Instructions: TAKE 1 TABLET BY MOUTH ONCE DAILY FOR HIGH BLOOD PRESSURE atorvastatin 40 mg tablet See Rx Instructions .ROUTE .COMPLEX Qty: 90 4RF Dose Instruction: TAKE 1 TABLET BY MOUTH AT BEDTIME NIGHTLY Rx Instructions: TAKE 1 TABLET BY MOUTH AT BEDTIME NIGHTLY losartan 50 mg tablet 50 mg PO DAILY 90 Days Qty: 90 3RF fluticasone propionate 120 SPR/BOT bottle 2 spr NS DAILY multivitamin 1 EACH tablet 1 each PO DAILY aspirin 81 MG tablet,delayed release (DR/EC) 81 mg PO DAILY flaxseed oil 1,000 MG capsule 1,000 mg PO DAILY alpha lipoic acid 200 MG capsule 200 mg PO DAILY cholecalciferol (vitamin D3) 50 MCG capsule 25 mcg PO DAILY vitamin E succinate 400 UNIT tablet 180 mg PO BID calcium carbonate-vitamin D3 500 mg-2.5 mcg (100 unit) tablet,chewable 1 tab PO DAILY Referrals Follow up/Referrals: Jimi Mcdermott [Primary Care Provider, Medical] - See instructions Activity Restrictions/Add. Instructions Additional Instructions/Restrictions: You were evaluated in the emergency department today. Please follow-up closely with your primary care provider over the next 24 to 48 hours. I also recommend close follow-up with neurology, which they can help set you up for. Return to the emergency department right away for new or worsening symptoms. Clinical Impressions Clinical Impression: Migraine with aura, Transient neurological symptoms Instructions Patient Instructions: DI for Migraine, DI for Transient Ischemic Attack Print Language Print Language: Estonian Discharge ED Provider: Keke Dawn General Adult HPI General Chief complaint: Neuro Symptoms/Deficit Stated complaint: Migraine,nausea,dizziness Time Seen by Provider: 04/28/25 15:11 Mode of Arrival: Ambulatory Source of Information: Patient Description of Symptoms (Recalled from ER Triage Doc. by RN): patient states around 1330she was watching tv when she was unable to speak certain words she reports this was very brief. she reports she had a migraine before this happened. History of Present Illness HPI narrative: This patient is a 74-year-old female with a history of hypertension, hyperlipidemia, diabetes, CAD, JUDD, and migraines presenting to the emergency department for evaluation with concern for word finding difficulty. Patient notes that she does have a history of migraines but has not had one in a bit. She notes that she had her typical migraine aura that she has this afternoon around 1, and then she felt like she could not understand what was happening on TV and what was being spoken to her by her . She also notes that she was having difficulty finding words to be able to communicate, and the only thing that she could state is that she was scared. She advises that she was concerned that she was having a stroke. She states that she is starting to develop a mild headache at this time. She is feeling a little bit better but still feels like she is having some trouble finding words. She is alert and conversational on assessment, however. She has mild headache, but no visual disturbance, numbness, tingling, lateral weakness, gait disturbance, or other concerns. She denies ever experiencing anything like this in the past. She notes extensive family history of strokes and expresses concern because of this Related Data Home Medications ?Medication ?Instructions ?Recorded ?Confirmed fluticasone propionate 50 2 spr intranasal DAILY allergies 11/01/18 04/25/25 mcg/actuation nasal spray,suspension alpha lipoic acid 200 mg capsule 200 mg PO DAILY Supplement 05/22/21 04/25/25 aspirin 81 mg tablet,delayed 81 mg PO DAILY heart healthy 05/22/21 04/25/25 release cholecalciferol (vitamin D3) 50 25 mcg PO DAILY Supplement 05/22/21 04/25/25 mcg (2,000 unit) capsule flaxseed oil 1,000 mg capsule 1,000 mg PO DAILY Supplement 05/22/21 04/25/25 multivitamin 1 each PO DAILY Supplement 05/22/21 04/25/25 vitamin E succinate 268 mg (400 180 mg PO BID Supplement 05/22/21 04/25/25 unit) tablet vitamin B complex 1 tab PO DAILY 08/27/22 04/25/25 clopidogrel 75 mg tablet 75 mg PO DAILY 02/25/23 04/25/25 lansoprazole 30 mg capsule,delayed 30 mg PO DAILY 02/25/23 04/25/25 release nitroglycerin 0.4 mg sublingual 0.4 mg sublingual Q5-15M PRN 02/25/23 04/25/25 tablet calcium 500 mg (as carbonate)-D3 1 tab PO DAILY Supplement 10/08/23 04/25/25 2.5 mcg (100 unit) chewable tablet melatonin 10 mg capsule 10 mg PO HS PRN 04/15/24 04/25/25 L.acidophilus-B.bifidum-B.longum cap PO 06/14/24 04/25/25 240 mg (3 billion cell) capsule (Probiotic Colon Support) blood sugar diagnostic (Accu-Chek #10 ea 06/14/24 04/25/25 Kerry Plus test strips) Previous Rx's ?Medication ?Instructions ?Recorded metoprolol succinate 25 mg See Rx Instructions .Route 09/28/24 tablet,extended release 24 hr .COMPLEX #90 tabs spironolactone 25 mg tablet See Rx Instructions .Route 09/28/24 .COMPLEX #90 tabs atorvastatin 40 mg tablet See Rx Instructions .Route 10/25/24 .COMPLEX #90 tabs losartan 50 mg tablet 50 mg PO DAILY 90 days #90 tabs 02/17/25 metformin 500 mg tablet 500 mg PO BID Diabetes #60 tabs 03/02/25 prednisone 5 mg tablet 5 mg PO DAILY autoimmune hepatitis 03/02/25 #30 tabs Allergies Allergy/AdvReac Type Severity Reaction Status Date / Time acetaminophen Allergy Hallucinati Verified 04/25/25 11:13 ng Cephalosporins Allergy Verified 04/25/25 11:13 meperidine (From Demerol) Allergy Verified 04/25/25 11:13 Sulfa (Sulfonamide Allergy Verified 04/25/25 11:13 Antibiotics) Tetracyclines Allergy Verified 04/25/25 11:13 [facility] Disclaimer: The information contained in this section may have been updated after the patient was seen, as this information can be updated by other users. Medical History Typical angina Coronary artery disease Macrocytosis without anemia Non-STEMI (non-ST elevated myocardial infarction) Diastolic dysfunction Endothelial dysfunction of coronary artery Carpal tunnel syndrome Cataract History of chest pain Obstructive sleep apnea Autoimmune hepatitis High cholesterol Hypertension Surgical History History of colonoscopy History of cardiac cath History of cataract surgery History of section History of cholecystectomy Family History Other Coronary artery disease Diabetes Hypertension DIANDRA (obstructive sleep apnea) Stroke Social History Smoking Status: Never smoker second hand exposure: No alcohol intake: current alcohol intake frequency: holidays/special occasions only substance use type: denies use current occupational status: retired Travel in the last 8 weeks?: None household members: spouse housing: house caffeine: Yes Have you lived/traveled outside [place] in past 30 days?: No Contact w/someone who lives/traveled outside [place] past 30 days?: No Exposure to someone with infectious disease in past 14 days?: No Do you have a fever (greater than 100.4 F or 38 C)?: No Have you tested positive for COVID-19?: No Exposed to someone with COVID-19 in past 14 days?: No Do you have a sore throat?: No Do you have a cough?: No Do you have any weakness?: No Do you have any diarrhea?: No Are you experiencing any unusual bleeding?: No Do you have any muscle aches/pain?: No Do you have any abdominal pain?: No Are you experiencing loss of taste or smell?: No Other Medical History Have you received the Flu Vaccine for this season: No Have you received the Pneumonia Vaccine: Yes ROS Obtained: Yes All systems reviewed & no additional complaints except as documented Physical Exam General General appearance: alert and in no apparent distress Head Head exam: atraumatic and normocephalic Eye Eye exam: Present normal appearance, PERRL and EOMI ENT ENT exam: Present normal exam, normal oropharynx, mucous membranes moist and normal external ear exam Neck Neck exam: Present normal inspection, full ROM and trachea midline; Absent tenderness Chest Chest inspection: Present normal inspection and symmetric chest wall rise; Absent tenderness Respiratory Respiratory exam: Present normal lung sounds bilaterally; Absent respiratory distress, wheezes, stridor or accessory muscle use Cardiovascular Cardiovascular exam: Present regular rate and normal rhythm Abdominal Exam Abdominal exam: Present soft; Absent distention, tenderness or guarding Extremities Exam Extremities exam: Present normal inspection, full ROM and normal capillary refill; Absent tenderness or edema Back Exam Back exam: Present normal inspection and full ROM; Absent tenderness Neurological Exam Neurological exam: Present alert, oriented X3, CN II-XII intact and normal gait; Absent motor sensory deficit Psychiatric Psychiatric exam: Present normal affect and normal mood Skin Skin exam: Present warm and dry Medical Decision Making Medical Records Medical records reviewed: Yes I reviewed the patient's medical records. Screening: Per USPSTF and CDC recommendations, given the prevalence of disease in our region, it is our hospital?s policy to screen for HIV and viral Hepatitis for all patients aged 18 and over and those with ongoing risk factors. Nathan Inquiry Pt receiving controlled substance: No Vital Signs: 04/28/25 15:17 04/28/25 16:31 04/28/25 17:00 Temperature 97.9 F Temperature Source Oral Pulse Rate 60 60 Pulse Rate [Right Radial] 67 Respiratory Rate 16 16 16 Blood Pressure 131/68 123/70 Blood Pressure [Right Arm] 160/80 H Blood Pressure Mean 89 96 Blood Pressure Mean [Right Arm] 106 Blood Pressure Source Blood Pressure Source [Right Arm] Automatic Cuff Blood Pressure Position Blood Pressure Position [Right Arm] Supine 02 Sat by Pulse Oximetry 98 99 96 Oxygen Delivery Method Room Air 04/28/25 17:30 Temperature 98.1 F Temperature Source Oral Pulse Rate 74 Pulse Rate [Right Radial] Respiratory Rate 15 Blood Pressure 123/70 Blood Pressure [Right Arm] Blood Pressure Mean Blood Pressure Mean [Right Arm] Blood Pressure Source Automatic Cuff Blood Pressure Source [Right Arm] Blood Pressure Position Supine Blood Pressure Position [Right Arm] 02 Sat by Pulse Oximetry Oxygen Delivery Method Room Air Lab Data Lab results reviewed: Yes I reviewed the patient's lab results. Lab Results 04/28/25 15:14: WBC 6.9, RBC 4.16 L, Hgb 14.1, Hct 42.4, MCV 101.9 H, MCH 33.9 H, MCHC 33.3, RDW 13.2, Plt Count 220, MPV 9.4, Neut % (Auto) 83.2 H, Lymph % (Auto) 7.8 L, [place] % (Auto) 7.4, Eos % (Auto) 1.0, Baso % (Auto) 0.3, Neut # (Auto) 5.8, Lymph # (Auto) 0.5 L, [place] # (Auto) 0.5, Eos # (Auto) 0.1, Baso # (Auto) 0.0, Total Counted 100, Neutrophils % (Manual) 85 H, Lymphocytes % (Manual) 8 L, Monocytes % (Manual) 6, Eosinophils % (Manual) 1, Platelet Estimate Normal, RBC Morphology Normal, PT 10.6, INR 0.95, APTT 25.3, Sodium 138, Potassium 4.8, Chloride 102, Carbon Dioxide 24, Anion Gap 16.8 H, BUN 19 H, Creatinine 1.10 H, Estimated Creat Clear 54, Estimated GFR 49 L, Est GFR ( Amer) 59, Glucose 124 H, Calcium 10.6 H, Total Bilirubin 1.2, AST 35, ALT 33, Alkaline Phosphatase 73, Troponin I < 0.01, Total Protein 7.2, Albumin 4.7, Globulin 2.5, Albumin/Globulin Ratio 1.9 H, Triglycerides 241 H, Cholesterol 136 L, LDL Cholesterol Direct 53.74 L, VLDL Cholesterol 48 H, HDL Cholesterol 43, Cholesterol/HDL Ratio 3.2, Plasma/Serum Alcohol < 10, HCV Ab AID w/Rflx PCR Qn Negative, HIV Ag/Ab Combo Qual Negative 04/28/25 16:07: Urine Color Yellow, Urine Appearance Clear, Urine pH 6.0, Ur Specific [place] <= 1.005, Urine Protein Negative, Urine Glucose (UA) Negative, Urine Ketones Negative, Urine Blood Negative, Urine Nitrate Negative, Urine Bilirubin Negative, Urine Urobilinogen 0.2, Ur Leukocyte Esterase 1+ A, Urine Opiates Screen Negative, Urine Methadone Screen Negative, Ur Barbituates Screen Negative, Ur Phencyclidine Scrn Negative, Ur Amphetamines Screen Negative, U Benzodiazepines Scrn Negative, Urine Cocaine Screen Negative, U Marijuana (THC) Screen Negative 04/28/25 15:14 04/28/25 15:14 Orders (Tests/Meds): ED MEDICATIONS Generic Name Dose Route Start Last Admin Trade Name Freq PRN Reason Stop Dose Admin Sodium Chloride 10 ml 04/28/25 15:13 Sodium Chloride 0.9% 10ml Flush Syringe IV 05/28/25 15:12 NEEDED PRN Maintain IV Site Sodium Chloride 10 ml 04/28/25 15:27 04/28/25 15:30 Sodium Chloride 0.9% 10ml Syr (Rad Only) IV 05/28/25 15:26 10 ml NEEDED PRN Administration Maintain IV Site Discontinued Medications Generic Name Dose Route Start Last Admin Trade Name Freq PRN Reason Stop Dose Admin Lactated Ringer's 500 mls @ 999 mls/hr 04/28/25 16:11 04/28/25 16:25 Lactated Ringer's 500ml IV 04/28/25 16:41 999 mls/hr .Q31M ONE Administration Iopamidol 80 ml 04/28/25 15:27 04/28/25 15:29 Iopamidol-370 (76%);100ml Bottle IV 04/28/25 15:28 80 ml ONCE ONE Administration Ketorolac Tromethamine 15 mg 04/28/25 16:11 04/28/25 16:24 Ketorolac 30mg/Ml Vial IV 04/28/25 16:12 15 mg ONCE ONE Administration Metoclopramide HCl 5 mg 04/28/25 16:11 04/28/25 16:24 Metoclopramide Hcl 10mg/2ml Vial IVP 04/28/25 16:12 5 mg ONCE ONE Administration Sodium Chloride 50 ml 04/28/25 15:27 04/28/25 15:30 0.9 % Sodium Chloride 50 Ml Vial IV 04/28/25 15:28 50 ml ONCE ONE Administration ORDERS Category Date Time Status CT angio head Stat Cat Scan 04/28/25 15:[address] angio neck Stat Cat Scan 04/28/25 15:[address] head/brain wo con Stat Cat Scan 04/28/25 15:13 Completed Activated Partial Thrombo Time Stat Lab 04/28/25 15:14 Completed Complete Blood Count Auto Diff Stat Lab 04/28/25 15:14 Completed Comprehensive Metabolic Panel Stat Lab 04/28/25 15:14 Completed Drug Screen,Urine Stat Lab 04/28/25 16:07 Completed Ethyl Alcohol Stat Lab 04/28/25 15:14 Completed HIV Combo Stat Lab 04/28/25 15:14 Completed Hepatitis C Ab Qual. W/ RFX Stat Lab 04/28/25 15:14 Completed Lipid Panel Stat Lab 04/28/25 15:14 Completed Prothrombin Time INR Stat Lab 04/28/25 15:14 Completed Troponin I Q3H Lab 04/28/25 18:15 Ordered Troponin I Q3H Lab 04/28/25 21:15 Ordered Troponin I Stat Lab 04/28/25 15:14 Completed Urinalysis and Microscopic Stat Lab 04/28/25 16:07 Results Urine Culture Stat Micro 04/28/25 16:07 Received ECG Data Tracing #1: I reviewed this ECG and interpreted as documented below: Normal sinus rhythm at a ventricular rate of [address] changes concerning for ischemia. Normal intervals ECG initial impression date: 04/28/25 ECG initial impression time: 15:39 Medical Decision Narrative: In summary, this patient is a 74-year-old female presenting to the Emergency Department for evaluation of migraine aura, headache, brief expressive and receptive aphasia that has now resolved. Differential diagnoses considered include but are not limited to complex migraine, migraine with aura, CVA, intracranial hemorrhage, intracranial mass, anxiety. Ruling out the most morbid conditions drove assessment. It should be noted patient's history includes migraines, hypertension, hyperlipidemia, CAD, diabetes which may or may not be at goal therapy. This complicates all aspects of care by increasing patient's risk for morbidity. I reviewed patient's past medical records and noted prior evaluations by cardiology, GI in the past for maintenance of health as well as by neurology for DIANDRA. On exam, the patient is sitting upright in no acute distress. She is neurologically intact with an NIH stroke scale of 0. I do not appreciate any focal neurologic deficits on exam. Vitals are reassuring on cardiac telemetry. Given the patient's symptoms and onset within the last 4 hours, I elected to stroke alert the patient just out of an abundance of precaution, though I favor complex migraine versus TIA as a cause of her symptoms given that symptoms are resolving and she does have aura as well as headache. Workup included lab evaluation to evaluate for infectious, metabolic, cardiac issues as well as stroke CT scans including CT head, CT angiogram head and neck. EKG obtained is reassuring. I independently interpreted CT scans prior to the radiologist read and noted no intracranial hemorrhage, no large vessel occlusion, no intracranial hemorrhage. Please see their read for final interpretation. I had an interactive discussion with Dr. Solomon at who agreed no large vessel occlusion. On reassessment after returning from scan, patient had resolution of symptoms and states she is feeling fine with the exception of mild headache. I feel she likely had complex migraine with aura. She notes she did used to have speech issues with her migraines in the past. I considered thrombolytics, however based on NIH stroke scale of 0, resolution of symptoms, I do not feel it is indicated as risk would outweigh benefit. Also consider thrombectomy but she has no large vessel occlusion. Will trial migraine cocktail with IV Toradol, Reglan, and fluids to assess for further symptomatic improvement. Labs obtained are reassuring with no significant leukocytosis or anemia, kidney functions around her baseline. Troponin negative. Nothing actionable on lab assessment. She does have hyperlipidemia but is already on statin therapy. On multiple subsequent reassessments, she is feeling her usual normal self with no neurologic deficits. She has no headache after migraine cocktail. Given this, I feel she is appropriate for discharge home with diagnosis of most likely migraine with aura. Strict return precautions were given as well as instructions for close PCP and neurology follow-up. Critical Care Critical Care Time Critical Care Time: Yes Attestation: On 04/28/25, the high probability of a clinically significant, sudden or life threatening deterioration of the following system(s) required my full and direct attention, intervention and personal management. The time I documented below is in addition to time spent performing reported procedures but includes the following listed in this critical care notation. Total Time Total Critical Care Time: 35
[2025-04-28 15:29] LABS: MANUAL DIFFERENTIAL MANUAL DIFFERENTIAL (MANUAL DIFF)
[2025-04-28] MEDS: IOPAMIDOL-370 (76%);100ML BOTTLE 80 ML IV (15:29)
--- NOTE | 2025-04-28 15:29 | PC.NURSE ---
Pt has returned from radiology
[2025-04-28] MEDS: 0.9 % SODIUM CHLORIDE 50 ML VIAL IV (15:30)
[2025-04-28] MEDS: SODIUM CHLORIDE 0.9% 10ML SYR (RAD ONLY) 10 ML IV (15:30)
[2025-04-28 15:35] LABS: Activated Partial Thrombo Time 25.3 seconds (22.8-30.6); INR 0.95 (0.9-1.1); Prothrombin Time 10.6 seconds (10.1-12.5)
--- NOTE | 2025-04-28 15:36 | ECG_ITS ---
APPROVED REPORT Exam: Resting ECG HR:63 bpm ECG Measurements Heart Rate 63 AXES UT 197 P -39 QRSd 81 QRS 34 QT 360 T -16 QTc 368 Conclusion SINUS RHYTHM LOW QRS VOLTAGE IN PRECORDIAL LEADS [QRS DEFLECTION < 1.0 mV IN CHEST LEADS] No STEMI Electronically signed by : KATIA LAINEZ, 04/28/2025 17:39:28
[2025-04-28 15:56] LABS: Eosinophils % 1 % (0-3); Lymphocytes % 8 % (10-50); Monocytes % 6 % (2-9); Neutrophils % 85 % (42-76); Platelet Estimate Normal; RBC Morphology Normal; Total Cells Counted 100
[2025-04-28 16:03] LABS: Ethyl Alcohol < 10 mg/dl (0-10)
[2025-04-28 16:17] LABS: Microscopic, Urine URINE MICROSCOPIC (MICROSCOPIC)
[2025-04-28] MEDS: KETOROLAC 30MG/ML VIAL 15 MG IV (16:24)
[2025-04-28] MEDS: METOCLOPRAMIDE HCL 10MG/2ML VIAL 5 MG IVP (16:24)
[2025-04-28] MEDS: RINGERS SOLUTION,LACTATED 500 ML 999 ML IV (16:25)
[2025-04-28 16:27] LABS: HIV Combo NEGATIVE (Negative)
[2025-04-28 16:28] LABS: Appearance,Urine CLEAR (Clear); Bilirubin,Urine Negative (Negative); Blood, Urine Negative (Negative); Color,Urine YELLOW (Yellow); Glucose,Urine (UA) Negative (Negative); Ketones,Urine Negative (Negative); Leukocyte Esterase,Urine 1+ (Negative); Nitrate,Urine Negative (Negative); Protein,Urine Negative (Negative); Specific Gravity, Urine <= 1.005 (1.005-1.030); Urobilinogen,Urine 0.2 EU/dl (0.2)
[2025-04-28 16:31] VITALS: BP 131/68; PULSE 60; RESP 16; O2SAT 99
[2025-04-28 16:33] LABS: Hepatitis C Ab Qual. W/ RFX NEGATIVE (Negative)
[2025-04-28 16:42] LABS: Benzodiazepines Screen,Urine Negative ng/ml (<200)
[2025-04-28 16:43] LABS: Amphetamine/Metha Screen,Urine Negative ng/ml (<1000)
[2025-04-28 16:44] LABS: Barbiturates Screen,Urine Negative ng/ml (<200); Cannabinoid Screen,Urine Negative ng/ml (<50)
[2025-04-28 16:45] LABS: Cocaine Screen,Urine Negative ng/ml (<300); Methadone Screen,Urine Negative ng/ml (<300)
[2025-04-28 16:46] LABS: Opiate Screen,Urine Negative ng/ml (<300)
[2025-04-28 16:47] LABS: Phencyclidine Screen,Urine Negative ng/ml (<25)
[2025-04-28 17:00] VITALS: BP 123/70; PULSE 60; RESP 16; O2SAT 96
[2025-04-28 17:00] LABS: Albumin Level 4.7 g/dl (3.5-5.0); Chloride 102 mmol/L (98-107); Potassium 4.8 mmoL/L (3.5-5.1); Sodium 138 mmol/L (136-145)
[2025-04-28 17:02] LABS: Blood Urea Nitrogen 19 mg/dl (7-17); Creatinine Clearance Estimated 54 mL/min (50-200); Estimated Glomerular Filt Rate 49 ml/min (>60); GFR (African American) 59 ML/MIN (>60)
[2025-04-28 17:03] LABS: Alanine Aminotransferase 33 U/L (12-78); Albumin/Globulin Ratio 1.9 (1.1-1.8); Alkaline Phosphatase 73 U/L (38-126); Anion Gap 16.8 mEq/L (5-15); Aspartate Amino Transferase 35 U/L (14-36); Bilirubin,Total 1.2 mg/dl (0.2-1.3); Calcium 10.6 mg/dl (8.4-10.2); Carbon Dioxide 24 mmol/L (22.0-30.0); Chol/HDL Ratio 3.2 (1-3.5); Cholesterol 136 mg/dl (140-200); Globulin 2.5 g/dL (1.3-3.2); Glucose 124 mg/dl (74-100); HDL Cholesterol 43 mg/dl (40-60); Total Protein,Serum 7.2 g/dl (6.3-8.2); Triglycerides 241 mg/dl (30-150); VLDL Cholesterol 48 mg/dL (0-40)
[2025-04-28 17:14] LABS: Direct LDL Cholesterol 53.74 mg/dL (100-129)
[2025-04-28 17:26] LABS: Troponin I < 0.01 ng/ml (0.00-0.034)
[2025-04-28 17:30] VITALS: BP 123/70; PULSE 74; RESP 15; TEMP 36.7; O2SAT 99
[2025-04-28 17:41] LABS: WBC,Urine 20-50 #/hpf (0-3)
[2025-04-28 17:42] LABS: Bacteria,Urine 3+ /lpf; Squamous Epithelial Cell,Urine Occasional #/hpf (0-5)
--- NOTE | 2025-04-30 09:28 | PC.NURSE ---
Urine culture results reviewed by Dr. Saravia. Advised to contact patient if she is feeling better no need to change prescription. If not, will change to Bactrim DS 1 tab BID x 5 days. Attempted to call patient, no answer, left message to return call.
--- NOTE | 2025-04-30 09:40 | PC.NURSE ---
Patient returned call regarding urine culture- states she started antibiotics and is feeling better. Advised her to finish course of antibiotics and follow up with PCP if not improved after. Patient verbalized understanding.
== END 2025-04-28 17:31 | disposition home or self-care (01) ==
PROVIDERS: Emergency Provider Emergency Medicine; PCP Internal Medicine
DX: G43.119 Migraine with aura, intractable, without status migrainosus (principal); G45.9 Transient cerebral ischemic attack, unspecified; N39.0 Urinary tract infection, site not specified; I10 Essential (primary) hypertension; E11.9 Type 2 diabetes mellitus without complications
CPT/HCPCS: 70450; 70496; 70498; 80053; 80061; 80307; 80320; 81001; 84484; 85007; 85025; 85027; 85610; 85730; 86803; 87086; 87088; 87186; 87389; 93005; 96361; 96374; 96375; 99285; J1885; J2765; J7120; Q9967

== ENCOUNTER 2025-08-02 09:24 | Outpatient (CLI) | payer MEDICARE, SELFPAY ==
--- OUTSIDE RECORDS SUMMARY | 2025-06-03 13:00 | XMS_ITS | Encounter Summary ---
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 Name Role Phone Jimi Mcdermott MD Primary Care Provider [phone] Reason for Visit * Reason Comments Annual Exam Encounter Details Date Type Department Care Team (Late st Contact Info) Description 06/03/2025 1:00 PM EDT Office Visit [facility] [address] [place] [address] [place] [id number] Jimi Mcdermott MD [address] [place] [address] [place] [id number] Medicare annual wellness visit, subsequent (Primary Dx); Encounter for general adult medical examination with abnormal findings; Coronary artery disease involving [place] coronary artery of [place] heart without angina pectoris; Non-STEMI (non-ST elevated myocardial infarction); Endothelial dysfunction of coronary artery; History of palpitations; Type 2 diabetes mellitus with stage 2 chronic kidney disease, without long-term current use of insulin; Primary hypertension; Mixed hyperlipidemia; Subclinical hypothyroidism; Mild obesity; Vitamin D deficiency; Autoimmune hepatitis; Stage 3a chronic kidney disease; Macrocytosis without anemia; DIANDRA on CPAP; Seasonal allergic rhinitis due to pollen; COVID-19 vaccine administered Social History Tobacco Use Types Packs/Day Years Used Date Smoking Tobacco: Never Smokeless Tobacco: Never Alcohol Use Standard Drinks/Week Comments Not Currently 0 (1 standard drink = 0.6 oz pur e alcohol) rarely PHQ-2 Answer Date Recorded Retired PHQ-9: Brief Depression Severity Measure Score 0 07/21/2023 PHQ-2 Answer Date Recorded Patient Health Questionnaire-2 Score 0 06/03/2025 Comments No Sex and Gender Information Value Date Recorded Sex Assigned at Not on file Legal Sex Female 10:04 AM EDT Gender Identity Not on file Sexual Orientation Not on file documented as of this encounter Last Filed Vital Signs Vital Sign Reading Time Taken Comments Blood Pressure 132/85 06/03/2025 1:03 PM EDT Pulse 77 06/03/2025 1:03 PM EDT Temperature 36.8 C (98.2 F) 06/03/2025 1:03 PM EDT Respiratory Rate - - Oxygen Saturation 96% 06/03/2025 1:03 PM EDT Inhaled Oxygen Concentration - - Weight 80 kg (176 lb 6.4 oz) 06/03/2025 1:03 PM EDT Height 160 cm (5' 3 ) 06/03/2025 1:03 PM EDT Body Mass Index 31.25 06/03/2025 1:03 PM EDT documented in this encounter Functional Status documented as of this encounter Progress Notes * Jimi Mcdermott MD - 06/03/2025 1:00 PM EDTAssociated Problem(s): Coronary artery disease involving [place] coronary artery of [place] heart without angina pectoris History of non-STEMI in 08/2022 with subsequent LHC revealing normal coronary arteries, suspected endothelial dysfunction as etiology. Taking aspirin, metoprolol, atorvastatin, and spironolactone, Plavix recently discontinued. No current cardiopulmonary complaint. Followed by the office with Dr. Mcgee of cardiology in [place], most recent appointment in 04/2025, EKG at that time reported stable with a chronic T wave abnormality, conservative follow-up being pursued. Continue current regimen. * Jimi Mcdermott MD - 06/03/2025 1:00 PM EDTAssociated Problem(s): Endothelial dysfunction of coronary artery LHC in 08/2022 revealing normal coronary arteries, non-STEMI felt most likely to be secondary to endothelial dysfunction. * Jimi Mcdermott MD - 06/03/2025 1:00 PM EDTAssociated Problem(s): History of palpitations Prior history of palpitations, currently asymptomatic, taking metoprolol XL 25 mg daily. Continue cardiology follow-up. * Jimi Mcdermott MD - 06/03/2025 1:00 PM EDTAssociated Problem(s): Hyperlipidemia Prescribed atorvastatin 40 mg daily. Update lipid profile Orders: Lipid Panel; Future * Jimi Mcdermott MD - 06/03/2025 1:00 PM EDTAssociated Problem(s): Hypertension Maintaining good hypertensive control acutely as well as by history chronically taking losartan 50 mg daily, metoprolol XL 25 mg daily, and Aldactone 25 mg daily. Continue current regimen with monitoring. Orders: Comprehensive Metabolic Panel; Future UA / M With / Rflx Culture([facility] ONLY) - Urine, Clean Catch; Future * Jimi Mcdermott MD - 06/03/2025 1:00 PM EDTAssociated Problem(s): Non-STEMI (non-ST elevated myocardial infarction) History of non-STEMI in 08/2022 with subsequent C revealing normal coronary arteries, suspected endothelial dysfunction as etiology. Taking aspirin, metoprolol, atorvastatin, and spironolactone, Plavix recently discontinued. No current cardiopulmonary complaint. Followed by the office with Dr. Mcgee of cardiology in [place], most recent appointment in 04/2025, EKG at that time reported stable with a chronic T wave abnormality, conservative follow-up being pursued. Continue current regimen. * Jimi Mcdermott MD - 06/03/2025 1:00 PM EDTAssociated Problem(s): Seasonal allergic rhinitis due to pollen Ongoing symptomatic seasonal allergies typically spring through fall despite taking Flonase and Benadryl nightly. Advised to start taking once daily second- generation antihistamine such as Claritin or Zyrtec, and will add Singulair 10 mg nightly prophylaxis to be utilized during the entire allergy season. Orders: montelukast (Singulair) 10 MG tablet; Take 1 tablet by mouth Every Night. For prevention of allergies * Jimi Mcdermott MD - 06/03/2025 1:00 PM EDTAssociated Problem(s): Diabetes mellitus Excellent glycemic control today with hemoglobin A1c 6.3% versus 6.4% in 12/2024 taking metoprolol XL 500 mg twice daily as monotherapy. UACR today negative. Continue current healthy lifestyle with diet and exercise. Orders: POC Glycosylated Hemoglobin (Hb A1C) POC Glucose, Blood POC Albumin/Creatinine Ratio Urine * Jimi Mcdermott MD - 06/03/2025 1:00 PM EDTAssociated Problem(s): Mild obesity Patient is very physically active and pursues a very healthy diet rich in fruits and vegetables. Continue current healthy lifestyle * Jimi Mcdermott MD - 06/03/2025 1:00 PM EDTAssociated Problem(s): Subclinical hypothyroidism Not really on thyroid replacement. Update thyroid function testing. Orders: TSH; Future T4, Free; Future * Jimi Mcdermott MD - 06/03/2025 1:00 PM EDTAssociated Problem(s): Vitamin D deficiency Taking Vitamin D supplementation with her calcium. Update level. Orders: Vitamin D,25-Hydroxy; Future * Jimi Mcdermott MD - 06/03/2025 1:00 PM EDTAssociated Problem(s): Autoimmune hepatitis Chronically is followed by Dr. Greyronically followed by Dr. Chris Scott of gastroenterology,recent recent LFTs normal, taking prednisone 5 mg daily prophylaxis. Continue current regimen.. * Jimi Mcdermott MD - 06/03/2025 1:00 PM EDTAssociated Problem(s): Encounter for general adult medical examination with abnormal findings Referral female presents for Medicare wellness visit and complete physical with specific health issues being addressed as detailed below, health maintenance includes colonoscopy from 05/2021, 5-year follow-up recommended, DEXA scan from 06/2024 normal, mammogram normal with repeat schedule,aging out of Pap smear testing, advised to update RSV vaccine through pharmacy, keep current with COVID-19 and flu vaccine guidelines, EKG today deferred as obtained by medical cash poster Dr. Mcgee in 04/2025 and reported stable, updating screening labs. Tentative follow-up in 6 months for review givenher diabetes and chronic kidney disease, and as needed in the interim Orders: TSH; Future T4, Free; Future Comprehensive Metabolic Panel; Future CBC & Differential; Future Lipid Panel; Future Vitamin D,25-Hydroxy; Future UA / M With / Rflx Culture([facility] ONLY) - Urine, Clean Catch; Future POC Glycosylated Hemoglobin (Hb A1C) POC Glucose, Blood POC Albumin/Creatinine Ratio Urine * Jimi Mcdermott MD - 06/03/2025 1:00 PM EDTAssociated Problem(s): Macrocytosis without anemia Also recent hemoglobin 13.7 with MCV 99 in 12/2024, having been reduced with previous value 102. History of normal B12 and folic acid, needs to be repeated. Had been discussion with Dr. Banks of hematology/oncology regarding pursuing bone marrow biopsy, with conservative observation being pursued.Follows up with Dr. Banks on 06/23/2025 Orders: CBC & Differential; Future Vitamin B12; Future Folate; Future * Jimi Mcdermott MD - 06/03/2025 1:00 PM EDTAssociated Problem(s): DIANDRA on CPAP Continues compliance with CPAP machine followed by Dr. Hernandez in [place] * Jimi Mcdermott MD - 06/03/2025 1:00 PM EDTAssociated Problem(s): Medicare annual wellness visit, subsequent * Jimi Mcdermott MD - 06/03/2025 1:00 PM EDTAssociated Problem(s): Stage 3a chronic kidney disease {Renal Disease A/P (Optional):41068} * Jimi Mcdermott MD - 06/03/2025 1:00 PM EDT Images from the original note were not included. Subjective The ABCs of the Annual Wellness Visit Medicare Wellness Visit Sahra Velasquez is a 74 y.o. patient who presents for a Medicare Wellness Visit. The following portions of the patient's history were reviewed and updated as appropriate: allergies, current medications, past family history, past medical history, past social history, past surgical history, and problem list. Compared to one year ago, the patient's physical health is better. Compared to one year ago, the patient's mental health is the same. Recent Hospitalizations: She was not admitted to the hospital during the last year. Current Medical Providers: Patient Care Team: Jimi Mcdermott MD as PCP - General (Internal Medicine) Marquis Roman MD (Inactive) as Consulting Physician (Gynecology) Mee Banks MD as Consulting Physician (Hematology and Oncology) Outpatient Medications Prior to Visit Medication Sig Dispense Refill Accu-Chek Kerry Plus test strip Use to check blood sugar levels. E11.9 Once daily 100 each 3 Accu-Chek Softclix Lancets lancets Use to check blood sugar levels. E11.9 100 each 1 aspirin 81 MG EC tablet Take 1 tablet by mouth Daily. atorvastatin (LIPITOR) 40 MG tablet Take 1 tablet by mouth every night at bedtime. Blood Glucose Monitoring Suppl (ACCU-CHEK KERRY PLUS) w/Device kit Calcium Carbonate-Vitamin D3 600-400 MG-UNIT tablet Take 1 tablet by mouth Daily. (Patient taking differently: Take 1 tablet by mouth 2 (Two) Times a Day.) fluticasone (Flonase) 50 MCG/ACT nasal spray 2 sprays into the nostril(s) as directed by provider Daily. 16 mL 5 lansoprazole (PREVACID) 30 MG capsule Take 1 capsule by mouth once daily 90 capsule 2 losartan (COZAAR) 50 MG tablet Take 1 tablet by mouth Daily. metFORMIN (GLUCOPHAGE) 500 MG tablet TAKE 1 TABLET BY MOUTH TWICE DAILY WITH MEALS 60 tablet 3 metoprolol succinate XL (TOPROL-XL) 25 MG 24 hr tablet TAKE 1 TABLET BY MOUTH IN THE MORNING 90 tablet 0 Multiple Vitamins-Minerals (MULTIVITAMIN ADULTS 50+ PO) Take 1 tablet by mouth Daily. nitroglycerin (NITROSTAT) 0.4 MG SL tablet DISSOLVE ONE TABLET UNDER THE TONGUE EVERY 5 MINUTES NEEDED FOR CHEST PAIN. DO NOT EXCEED A TOTAL OF 3 DOSES IN 15 MINUTES 25 tablet 1 predniSONE (DELTASONE) 5 MG tablet Take 1 tablet by mouth Daily. 90 tablet 3 Probiotic Product (PROBIOTIC DAILY PO) Take by mouth. spironolactone (ALDACTONE) 25 MG tablet Take 1 tablet by mouth Daily. ALPHA-LIPOIC ACID PO Take 200 mg by mouth Daily. (Patient not taking: Reported on 06/03/2025) clopidogrel (PLAVIX) 75 MG tablet Take 1 tablet by mouth once daily (Patient not taking: Reported on 06/03/2025) 90 tablet 0 No facility-administered medications prior to visit. No opioid medication identified on active medication list. I have reviewed chart for other potential high risk medication/s and harmful drug interactions in the elderly. Aspirin is on active medication list. Aspirin use is indicated based on review of current medical condition/s. Pros and cons of this therapy have been discussed today. Benefits of this medication outweigh potential harm. Patient has been encouraged to continue taking this medication. . Patient Active Problem List Diagnosis Vitamin D deficiency Menopause Hypertension Hyperlipidemia Gastroesophageal reflux disease Fibrocystic breast changes, bilateral Enlarged thyroid Diabetes mellitus Autoimmune hepatitis Coronary artery disease involving [place] coronary artery of [place] heart without angina pectoris Onychomycosis of nail of digit of hand Diabetic polyneuropathy associated with type 2 diabetes mellitus Osteopenia of left hip Subclinical hypothyroidism Mild obesity Macrocytosis without anemia DIANDRA on CPAP Non-STEMI (non-ST elevated myocardial infarction) Endothelial dysfunction of coronary artery History of syncope Encounter for general adult medical examination with abnormal findings Medicare annual wellness visit, subsequent Encounter for screening mammogram for malignant neoplasm of breast Screening for thyroid disorder Postmenopausal Acute left-sided low back pain with left-sided sciatica Atypical chest pain Esophageal dysphagia Dizziness Seasonal allergic rhinitis due to pollen Stage 3a chronic kidney disease History of palpitations Chronic left-sided low back pain without sciatica Chronic right shoulder pain Periscapular pain of right shoulder Left hip pain Advance Care Planning Advance Directive is not on file. ACP discussion was held with the patient during this visit. Patient does not have an advance directive, information provided. Objective Vitals: 06/03/25 1303 BP: 132/85 BP Location: Left arm Patient Position: Sitting Cuff Size: Adult Pulse: 77 Temp: 98.2 ??F (36.8 ??C) TempSrc: Temporal SpO2: 96% Weight: 80 kg (176 lb 6.4 oz) Height: 160 cm (63 ) PainSc: 0-No pain Estimated body mass index is 31.25 kg/m?? as calculated from the following: Height as of this encounter: 160 cm (63 ). Weight as of this encounter: 80 kg (176 lb 6.4 oz). BMI is >= 30 and <35. (Class 1 Obesity). The following options were offered after discussion;: exercise counseling/recommendations and nutrition counseling/recommendations Does the patient have evidence of cognitive impairment? No Lab Results Component Value Date HGBA1C 6.3 (A) 06/03/2025 Health Risk Assessment Smoking Status: Social History Tobacco Use Smoking Status Never Smokeless Tobacco Never Alcohol Consumption: Social History Substance and Sexual Activity Alcohol Use Not Currently Comment: rarely Fall Risk Screen MICHAEL Fall Risk Assessment was completed, and patient is at LOW risk for falls.Assessment completed on:06/03/2025 Depression Screening Little interest or pleasure in doing things? Not at all Feeling down, depressed, or hopeless? Not at all PHQ-2 Total Score 0 Health Habits and Functional and Cognitive Screenin06/03/2025 1:07 PM Functional & Cognitive Status Do you have difficulty preparing food and eating? No Do you have difficulty bathing yourself, getting dressed or grooming yourself? No Do you have difficulty using the toilet? No Do you have difficulty moving around from place to place? No Do you have trouble with steps or getting out of a bed or a chair? No Current Diet Well Balanced Diet Dental Exam Up to date Eye Exam Up to date Exercise (times per week) Other Current Exercises Include Walking;Yard Work;Gardening;House Cleaning Do you need help using the phone? No Are you deaf or do you have serious difficulty hearing? No Do you need help to go to places out of walking distance? No Do you need help shopping? No Do you need help preparing meals? No Do you need help with housework? No Do you need help with laundry? No Do you need help taking your medications? No Do you need help managing money? No Do you ever drive or ride in a car without wearing a seat belt? No Have you felt unusual fatigue (could be tiredness), stress, anger or loneliness in the last month? Yes Who do you live with? Spouse If you need help, do you have trouble finding someone available to you? No Have you been bothered in the last four weeks by sexual problems? No Do you have difficulty concentrating, remembering or making decisions? Yes Age-appropriate Screening Schedule: Refer to the list below for future screening recommendations based on patient's age, sex and/or medical conditions. Orders for these recommended tests are listed in the plan section. The patient has been provided with a written plan. Health Maintenance List Health Maintenance Topic Date Due DIABETIC FOOT EXAM 06/01/2025 LIPID PANEL 06/01/2025 INFLUENZA VACCINE 08/03/2025 HEMOGLOBIN A1C 12/04/2025 DIABETIC EYE EXAM 12/09/2025 COLORECTAL CANCER SCREENING 05/25/2026 ANNUAL WELLNESS VISIT 06/03/2026 URINE MICROALBUMIN-CREATININE RATIO (uACR) 06/03/2026 MAMMOGRAM 07/01/2026 DXA SCAN 07/01/2026 TDAP/TD VACCINES (2 - Td or Tdap) 08/27/2031 HEPATITIS C SCREENING Completed COVID-19 Vaccine Completed Pneumococcal Vaccine 50+ Completed ZOSTER VACCINE Completed [facility] Preventative Services Quick Reference Risk Factors Identified During Encounter Chronic Pain: OTC analgesics as needed. Proper dosing schedule discussed. Immunizations Discussed/Encouraged: COVID19 and RSV (Respiratory Syncytial Virus) The above risks/problems have been discussed with the patient. Pertinent information has been shared with the patient in the After Visit Summary. An After Visit Summary and PPPS were made available to the patient. Follow Up: Next Medicare Wellness visit to be scheduled in 1 year. Additional E&M Note during same encounter follows: Patient has additional, significant, and separately identifiable condition(s)/problem(s) that require work above and beyond the Medicare Wellness Visit Chief Complaint Annual Exam Subjective HPI Sahra is also being seen today for an annual adult preventative physical exam. Patient has no majorconcerns at this time. She does have some chronic intermittent low back pain without sciatica, noted more with excessive activity. Seasonal allergies currently problematic primarily from spring through fall, just despite using Flonase and Benadryl. History of non-STEMI in 08/2022 with subsequent normal left heart cath, felt likely due to endothelial dysfunction, placed on aspirin and Plavix along with metoprolol Lipitor and Aldactone, followed by Dr. Mcgee. She has no cardiopulmonary complaints other than occasional soreness in her chest, noting she has been very physically active lately working in her garden and various yard equipment. She does have a history of some palpitations but not noted to any significant degree lately. Type II diabetic with chronic kidney disease stage IIIa on metformin and losartan, blood sugars typically ranging 95-110, hemoglobin A1c today 6.3%, UACR normal, blood pressures typically in the 100s over 60s to 70s with pulse rate in the 60s, hyperlipidemia on Lipitor, DIANDRA followed by Dr. Smith on CPAP, autoimmune hepatitis followed by Dr. Scott of GI on prednisone 5 mg daily maintenance, She will occasionally note that a pill may be caught in her throat when she swallows, but no problems otherwise with foods or liquids. Does have a history of of esophageal dysphagia with EGD in 2016, currently on Prevacid. History of macrocytosis without anemia,previous normal B12 folic acid, followed by Dr. Banks hematology oncology, having discussion in the past and pursuing a bone marrow biopsy but conservative monitoring currently being pursued. No other acute problems or concerns. Review of systems: Head and neck negative, cardiopulmonary negative, GI with occasional dysphagia with pills otherwise negative, negative, musculoskeletal occasional low back pain otherwise negative, neurological negative, moods doing well. Health maintenance includes aging Pap smears, DEXA scan from 06/2024 normal, colonoscopy from table with a 5-year follow-up recommended, mammogram from 06/2024 normal, all standard vaccines up-to-date recommending keeping current with COVID-19 and flu vaccine, ensure RSV vaccine updated, EKG today deferred as recently performed by medical cash poster, reported stable with chronic T wave abnormality, updating screening labs. Objective Vital Signs: BP 132/85 (BP Location: Left arm, Patient Position: Sitting, Cuff Size: Adult) Pulse 77 Temp 98.2 ??F (36.8 ??C) (Temporal) Ht 160 cm (63 ) Wt 80 kg (176 lb 6.4 oz) SpO2 96% BMI 31.25 kg/m?? Physical Exam Vitals and nursing note reviewed. Constitutional: General: She is not in acute distress. Appearance: Normal appearance. She is obese. She is not ill-appearing. Comments: Pleasant healthy alert and oriented, NAD, BMI 31.2 HENT: Head: Normocephalic and atraumatic. Right Ear: Tympanic membrane, ear canal and external ear normal. Left Ear: Tympanic membrane, ear canal and external ear normal. Nose: Congestion present. No rhinorrhea. Comments: Moderate nasal congestion with pale turbinates Mouth/Throat: Mouth: Mucous membranes are moist. Pharynx: Oropharynx is clear. Comments: Good dentition Eyes: Extraocular Movements: Extraocular movements intact. Conjunctiva/sclera: Conjunctivae normal. Pupils: Pupils are equal, round, and reactive to light. Neck: Vascular: No carotid bruit. Comments: No periclavicular or axillary or inguinal adenopathy Cardiovascular: Rate and Rhythm: Normal rate and regular rhythm. Pulses: Normal pulses. Heart sounds: Normal heart sounds. No murmur heard. No friction rub. No gallop. Comments: 2+ carotids without bruits, 2+ radial pulses, 2+ femoral pulses without bruits, 2+ bipedal pulses with good perfusion and no dependent edema Pulmonary: Effort: Pulmonary effort is normal. No respiratory distress. Breath sounds: Normal breath sounds. Comments: No cough Chest: Breasts: Right: Normal. Abdominal: General: Bowel sounds are normal. There is no distension. Palpations: Abdomen is soft. There is no mass. Tenderness: There is no abdominal tenderness. There is no guarding or rebound. Hernia: No hernia is present. Comments: Nontender nondistended with no organomegaly or masses Genitourinary: Comments: Breast and exam deferred today, routine followed by gynecology Musculoskeletal: General: No swelling, tenderness, deformity or signs of injury. Normal range of motion. Cervical back: Normal range of motion and neck supple. No rigidity or tenderness. Right lower leg: No edema. Left lower leg: No edema. Lymphadenopathy: Cervical: No cervical adenopathy. Upper Body: Right upper body: No supraclavicular or axillary adenopathy. Left upper body: No supraclavicular or axillary adenopathy. Skin: General: Skin is warm and dry. Capillary Refill: Capillary refill takes less than 2 seconds. Findings: No lesion or rash. Neurological: General: No focal deficit present. Mental Status: She is alert and oriented to person, place, and time. Mental status is at baseline. Cranial Nerves: No cranial nerve deficit. Sensory: No sensory deficit. Motor: No weakness. Coordination: Coordination normal. Gait: Gait normal. Comments: Bipedal exam with normal sensation in both feet to fine touch vibration and pinprick withmotor exam normal Psychiatric: Mood and Affect: Mood normal. Behavior: Behavior normal. Thought Content: Thought content normal. Judgment: Judgment normal. Diabetic Foot Exam Performed and Monofilament Test Performed Assessment and Plan Medicare annual wellness visit, subsequent Encounter for general adult medical examination with abnormal findings Referral female presents for Medicare wellness visit and complete physical with specific health issues being addressed as detailed below, health maintenance includes colonoscopy from 05/2021, 5-year follow-up recommended, DEXA scan from 06/2024 normal, mammogram normal with repeat schedule,aging out of Pap smear testing, advised to update RSV vaccine through pharmacy, keep current with COVID-19 and flu vaccine guidelines, EKG today deferred as obtained by medical cash poster Dr. Mcgee in 04/2025 and reported stable, updating screening labs. Tentative follow-up in 6 months for review givenher diabetes and chronic kidney disease, and as needed in the interim Orders: TSH; Future T4, Free; Future Comprehensive Metabolic Panel; Future CBC & Differential; Future Lipid Panel; Future Vitamin D,25-Hydroxy; Future UA / M With / Rflx Culture([facility] ONLY) - Urine, Clean Catch; Future POC Glycosylated Hemoglobin (Hb A1C) POC Glucose, Blood POC Albumin/Creatinine Ratio Urine Coronary artery disease involving [place] coronary artery of [place] heart without angina pectoris History of non-STEMI in 08/2022 with subsequent C revealing normal coronary arteries, suspected endothelial dysfunction as etiology. Taking aspirin, metoprolol, atorvastatin, and spironolactone, Plavix recently discontinued. No current cardiopulmonary complaint. Followed by the office with Dr. Mcgee of cardiology in [place], most recent appointment in 04/2025, EKG at that time reported stable with a chronic T wave abnormality, conservative follow-up being pursued. Continue current regimen. Non-STEMI (non-ST elevated myocardial infarction) History of non-STEMI in 08/2022 with subsequent LHC revealing normal coronary arteries, suspected endothelial dysfunction as etiology. Taking aspirin, metoprolol, atorvastatin, and spironolactone, Plavix recently discontinued. No current cardiopulmonary complaint. Followed by the office with Dr. Mcgee of cardiology in [place], most recent appointment in 04/2025, EKG at that time reported stable with a chronic T wave abnormality, conservative follow-up being pursued. Continue current regimen. Endothelial dysfunction of coronary artery LHC in 08/2022 revealing normal coronary arteries, non-STEMI felt most likely to be secondary to endothelial dysfunction. History of palpitations Prior history of palpitations, currently asymptomatic, taking metoprolol XL 25 mg daily. Continue cardiology follow-up. Type 2 diabetes mellitus with stage 2 chronic kidney disease, without long-term current use of insulin Excellent glycemic control today with hemoglobin A1c 6.3% versus 6.4% in 12/2024 taking metoprolol XL 500 mg twice daily as monotherapy. UACR today negative. Continue current healthy lifestyle with diet and exercise. Orders: POC Glycosylated Hemoglobin (Hb A1C) POC Glucose, Blood POC Albumin/Creatinine Ratio Urine Primary hypertension Maintaining good hypertensive control acutely as well as by history chronically taking losartan 50 mg daily, metoprolol XL 25 mg daily, and Aldactone 25 mg daily. Continue current regimen with monitoring. Orders: Comprehensive Metabolic Panel; Future UA / M With / Rflx Culture([facility] ONLY) - Urine, Clean Catch; Future Mixed hyperlipidemia Prescribed atorvastatin 40 mg daily. Update lipid profile Orders: Lipid Panel; Future Subclinical hypothyroidism Not really on thyroid replacement. Update thyroid function testing. Orders: TSH; Future T4, Free; Future Mild obesity Patient is very physically active and pursues a very healthy diet rich in fruits and vegetables. Continue current healthy lifestyle Vitamin D deficiency Taking Vitamin D supplementation with her calcium. Update level. Orders: Vitamin D,25-Hydroxy; Future Autoimmune hepatitis Chronically is followed by Dr. Greyronically followed by Dr. Chris Scott of gastroenterology,recent recent LFTs normal, taking prednisone 5 mg daily prophylaxis. Continue current regimen.. Stage 3a chronic kidney disease Macrocytosis without anemia Also recent hemoglobin 13.7 with MCV 99 in 12/2024, having been reduced with previous value 102. History of normal B12 and folic acid, needs to be repeated. Had been discussion with Dr. Banks of hematology/oncology regarding pursuing bone marrow biopsy, with conservative observation being pursued.Follows up with Dr. Banks on 06/23/2025 Orders: CBC & Differential; Future Vitamin B12; Future Folate; Future DIANDRA on CPAP Continues compliance with CPAP machine followed by Dr. Hernandez in [place] Seasonal allergic rhinitis due to pollen Ongoing symptomatic seasonal allergies typically spring through fall despite taking Flonase and Benadryl nightly. Advised to start taking once daily second- generation antihistamine such as Claritin or Zyrtec, and will add Singulair 10 mg nightly prophylaxis to be utilized during the entire allergy season. Orders: montelukast (Singulair) 10 MG tablet; Take 1 tablet by mouth Every Night. For prevention of allergies COVID-19 vaccine administered Orders: COVID-19 (Pfizer) 12yrs+ (COMIRNATY) Follow Up Return in about 6 months (around 12/04/2025) for Recheck. Patient was given instructions and counseling regarding her condition or for health maintenance advice. Please see specific information pulled into the AVS if appropriate. * Brianna Ash - 06/03/2025 1:00 PM EDT .. Venipuncture Blood Specimen Collection Venipuncture performed in left arm by Brianna Ash with good hemostasis. Patient tolerated the procedure well without complications. 06/03/25 Brianna Ash documented in this encounter Plan of Treatment Upcoming Encounters Date Type Department Care Team (Late st Contact Info) Description 12/20/2025 1:00 PM EST Office Visit [facility] [address] [place] [address] [place] [address] Jimi Mcdermott MD [address] [place] [address] 03/13/2026 2:30 PM EDT Office Visit [facility] [address] [place] [address] Jody Ricci MD [address] [place] [address] 06/07/2026 11:00 AM EDT Office Visit [facility] [address] [place] [address] Jimi Mcdermott MD [address] [place] [address] 06/22/2026 1:45 PM EDT Office Visit [facility] [address] [facility] [address] [facility] [address] [place] [address] Mee Banks MD [address] [place] [address] documented as of this encounter Procedures Procedure Name Priority Date/Time Associated Diagnosis Comments POC ALBUMIN/CREATININE RATIO Routine 06/03/2025 3:08 PM EDT Encounter for general adult medical examination with abnormal findings Type 2 diabetes mellitus with stage 2 chronic kidney disease, without long-term current use of insulin ~URINE CULTURE, ROUTINE Routine 06/03/2025 2:23 PM EDT UA/M W/RFLX CULTURE ([facility] ONLY) Routine 06/03/2025 2:23 PM EDT Encounter for general adult medical examination with abnormal findings Primary hypertension ~MICROSCOPIC EXAMINATION Routine 06/03/2025 2:23 PM EDT VITAMIN D,25-HYDROXY Routine 06/03/2025 2:23 PM EDT Encounter for general adult medical examination with abnormal findings Vitamin D deficiency CBC AND DIFFERENTIAL Routine 06/03/2025 2:23 PM EDT Encounter for general adult medical examination with abnormal findings Macrocytosis without anemia TSH Routine 06/03/2025 2:23 PM EDT Encounter for general adult medical examination with abnormal findings Subclinical hypothyroidism T4, FREE Routine 06/03/2025 2:23 PM EDT Encounter for general adult medical examination with abnormal findings Subclinical hypothyroidism FOLATE Routine 06/03/2025 2:23 PM EDT Macrocytosis without anemia VITAMIN B12 Routine 06/03/2025 2:23 PM EDT Macrocytosis without anemia LIPID PANEL Routine 06/03/2025 2:23 PM EDT Encounter for general adult medical examination with abnormal findings Mixed hyperlipidemia COMPREHENSIVE METABOLIC PANEL Routine 06/03/2025 2:23 PM EDT Encounter for general adult medical examination with abnormal findings Primary hypertension POCT GLUCOSE, BLD (NON STRIP) Routine 06/03/2025 2:15 PM EDT Encounter for general adult medical examination with abnormal findings Type 2 diabetes mellitus with stage 2 chronic kidney disease, without long-term current use of insulin POCT GLYCOSYLATED HEMOGLOBIN (HGB A1C) Routine 06/03/2025 2:15 PM EDT Encounter for general adult medical examination with abnormal findings Type 2 diabetes mellitus with stage 2 chronic kidney disease, without long-term current use of insulin documented in this encounter Results * POC Albumin/Creatinine Ratio Urine (06/03/2025 3:08 PM EDT) POC ALBUMIN, URINE 10 mg/L POC CREATININE, URINE 300 mg/dL POC Urine Albumin Creatinine Ratio <30 <30 Lot Number [id number] Expiration Date 06/11/2026 Urine 06/03/2025 3:08 PM EDT Jimi Mcdermott MD POINT OF CARE TEST ORDERABLES Final Result * (ABNORMAL) Urine Culture, Routine - (06/03/2025 2:23 PM EDT) Urine Culture Final report(A) [facility] Result 1 Klebsiella pneumoniae(A) [facility] Comment: Cefazolin with an NELLA <=16 predicts susceptibility to the oral agents cefaclor, cefdinir, cefpodoxime, cefprozil, cefuroxime, cephalexin, and loracarbef when used for therapy of uncomplicated urinary tract infections due to E. coli, Klebsiella pneumoniae, and Proteus mirabilis. 50,000-100,000 colony forming units per mL Susceptibility Testing Comment [facility] Comment: S = Susceptible; I = Intermediate; R = Resistant P = Positive; N = Negative MICS are expressed in micrograms per mL Antibiotic RSLT#1 RSLT#2 RSLT#3 RSLT#4 Amoxicillin/Clavulanic Acid S Ampicillin R Cefazolin S Cefepime S Cefoxitin S Cefpodoxime S Ceftriaxone S Ciprofloxacin S Ertapenem S Gentamicin S Levofloxacin S Meropenem S Nitrofurantoin S Piperacillin/Tazobactam S Tetracycline S Tobramycin S Trimethoprim/Sulfa S 06/03/2025 2:23 PM EDT 06/03/2025 Comment:Urine Release to [facility] - 06/08/2025 5:07 PM EDT Performed at: [address] [place] [id number] [employer]: Srinivasa Sosa PhD, Phone: [phone] Jimi Mcdermott MD URINE ORDERABLES Final Result [facility] [address] [place] [address], [facility] [address] [place] [address], * (ABNORMAL) Microscopic Examination - (06/03/2025 2:23 PM EDT) WBC, UA 6-10(A) 0 - 5 /hpf [facility] RBC, UA 0-2 0 - 2 /hpf [facility] Epithelial Cells (non renal) 0-10 0 - 10 /hpf [facility] Casts None seen None seen /lpf [facility] Crystals, UA Present(A) N/A [facility] Crystal Type Calcium Oxalate N/A [facility] Bacteria, UA Moderate(A) None seen/Few [facility] 06/03/2025 2:23 PM EDT 06/03/2025 Comment:Urine Release to [facility] (AMBULATORY) - 06/08/2025 5:07 PM EDT Performed at: [address] [id number] [employer]: Srinivasa Sosa PhD, Phone: [phone] us Jimi Mcdermott MD URINE ORDERABLES Final Result Performing Organization Address [facility] Co de Phone Number [facility] ([facility]) [address] [place] [address], [facility] [address] [place], [place] [address], [place] [phone] * Folate (06/03/2025 2:23 PM EDT) [facility] Folate >20.0 >3.0 ng/mL [facility] Comment: A serum folate concentration of less than 3.1 ng/mL is considered to represent clinical deficiency. Blood Structure of left upper limb / Unknown 06/03/2025 2:23 PM EDT 06/03/2025 Comment:Blood Release to [facility] ([facility]) - 06/04/2025 7:06 AM EDT Performed at: [address] [id number] [employer]: Srinivasa Sosa PhD, Phone: [phone] us Jimi Mcdermott MD LAB BLOOD ORDERABLES Final Res ult Performing Organization Address [facility] Co de Phone Number [facility]) [address] [place] [address], [facility] [address] [place] [address], [place] [phone] * Vitamin B12 (06/03/2025 2:23 PM EDT) [facility] Vitamin B-12 920 232 - 1,245 pg/mL [facility] Blood Structure of left upper limb / Unknown 06/03/2025 2:23 PM EDT 06/03/2025 Comment:Blood Release to [facility] (AMBULATORY) - 06/04/2025 7:06 AM EDT Performed at: - [facility] [address] [place], [place] [id number] [employer]: Srinivasa Sosa PhD, Phone: [phone] us Jimi Mcdermott MD LAB BLOOD ORDERABLES Final Res ult [facility] [address] [place] [address], [facility] [address] [place] [address], [place] [phone] * (ABNORMAL) UA / M With / Rflx Culture([facility] ONLY) - Urine, Clean Catch (06/03/2025 2:23 PM EDT) [facility] Specific [place], UA 1.021 1.005 - 1.030 [facility] pH, UA 5.5 5.0 - 7.5 [facility] Color, UA Yellow Yellow [facility] Appearance, UA Clear Clear [facility] Leukocytes, UA 1+(A) Negative [facility] Protein Negative Negative/Tra ce [facility] Glucose, UA Negative Negative [facility] Ketones Negative Negative [facility] Blood, UA Negative Negative [facility] Bilirubin, UA Negative Negative [facility] Urobilinogen, UA 0.2 0.2 - 1.0 mg/dL [facility] Nitrite, UA Negative Negative [facility] Microscopic Examination See below: [facility] Comment:Microscopic was kamari cated and was performed. Urinalysis Reflex Comment [facility] Comment:This specimen has re flexed to a Urine Culture. Urine Urine specimen obtained by clean catch procedure / Unknown 06/03/2025 2:23 PM EDT 06/03/2025 Comment:Urine Release to pat i Narrative [facility] - 06/08/2025 5:07 PM EDT Performed at: - [address] [id number] [employer]: Srinivasa Sosa PhD, Phone: [phone] us Jimi Mcdermott MD URINE ORDERABLES Final Result Performing Organization Address [facility]/ZIP Co de Phone Number [facility]) [address] [place] [address], [facility] [address] [place] [address], * Vitamin D,25-Hydroxy (06/03/2025 2:23 PM EDT) 25 Hydroxy, Vitamin D 68.5 30.0 - 100.0 ng/mL [facility] Comment: Vitamin D deficiency has been defined by the [place] of Medicine and an Endocrine Society practice guideline as a level of serum 25-OH vitamin D less than 20 ng/mL (1,2). The Endocrine Society went on to further define vitamin D insufficiency as a level between 21 and 29 ng/mL (2). 1. IOM ([place] of Medicine). 2010. Dietary reference intakes for calcium and D. [place]: The National Academies Press. 2. Joe MF, Sae ANTUNEZ, Gretchen VILLEGAS, et al. Evaluation, treatment, and prevention of vitamin D deficiency: an Endocrine Society clinical practice guideline. JCEM. 2010; 96(7):1911-30. Blood Structure of left upper limb / Unknown 06/03/2025 2:23 PM EDT 06/03/2025 Comment:Blood Release to pat i [facility] - 06/04/2025 7:06 AM EDT Performed at: - [address] [id number] [employer]: Srinivasa Sosa PhD, Phone: [phone] us Jimi Mcdermott MD LAB BLOOD ORDERABLES Final Res ult Performing Organization Address [facility]/ZIP Co de Phone Number [facility]) [address] [place] [address], [facility] [address] [place] [address], * (ABNORMAL) Lipid Panel (06/03/2025 2:23 PM EDT) [facility] Total Cholesterol 128 100 - 199 mg/dL [facility] Triglycerides 216(H) 0 - 149 mg/dL [facility] HDL Cholesterol 43 >39 mg/dL [facility] VLDL Cholesterol Nirav 35 5 - 40 mg/dL [facility] LDL Chol Calc (NIH) 50 0 - 99 mg/dL [facility] Blood Structure of left upper limb / Unknown 06/03/2025 2:23 PM EDT 06/03/2025 Comment:Blood Release to [facility] - 06/04/2025 7:06 AM EDT Performed at: [address] [id number] [employer]: Srinivasa Sosa PhD, Phone: [phone] Jimi Mcdermott MD LAB BLOOD ORDERABLES Final Res ult [facility] [address] [place] [address], [facility] [address] [place] [address], * (ABNORMAL) CBC & Differential (06/03/2025 2:23 PM EDT) [facility] WBC 5.5 3.4 - 10.8 x10E3/uL [facility] RBC 4.07 3.77 - 5.28 x10E6/uL [facility] Hemoglobin 13.5 11.1 - 15.9 g/dL [facility] Hematocrit 42.6 34.0 - 46.6 % [facility] MCV 105(H) 79 - 97 fL [facility] MCH 33.2(H) 26.6 - 33.0 pg [facility] MCHC 31.7 31.5 - 35.7 g/dL [facility] RDW 12.8 11.7 - 15.4 % [facility] Platelets 197 150 - 450 x10E3/uL [facility] Neutrophil Rel % 83 Not Estab. % [facility] Lymphocyte Rel % 7 Not Estab. % [facility] Monocyte Rel % 8 Not Estab. % [facility] Eosinophil Rel % 2 Not Estab. % [facility] Basophil Rel % 0 Not Estab. % [facility] Neutrophils Absolute 4.6 1.4 - 7.0 x10E3/uL [facility] Lymphocytes Absolute 0.4(L) 0.7 - 3.1 x10E3/uL [facility] Monocytes Absolute 0.4 0.1 - 0.9 x10E3/uL [facility] Eosinophils Absolute 0.1 0.0 - 0.4 x10E3/uL [facility] Basophils Absolute 0.0 0.0 - 0.2 x10E3/uL [facility] Immature Granulocyte Rel % 0 Not Estab. % [facility] Immature Grans Absolute 0.0 0.0 - 0.1 x10E3/uL [facility] Blood Structure of left upper limb / Unknown 06/03/2025 2:23 PM EDT 06/03/2025 Comment:Blood Release to [facility]) - 06/04/2025 7:06 AM EDT Performed at: - [address] [id number] [employer]: Srinivasa Sosa PhD, Phone: [phone] Jimi Mcdermott MD LAB BLOOD ORDERABLES Final Res ult [facility] [address] [place] [address], [facility] [address] [place] [address], * (ABNORMAL) Comprehensive Metabolic Panel (06/03/2025 2:23 PM EDT) Glucose 130(H) 70 - 99 mg/dL [facility] BUN 19 8 - 27 mg/dL [facility] Creatinine 1.20(H) 0.57 - 1.00 mg/dL [facility] EGFR Result 47(L) >59 mL/min/1.7 3 [facility] BUN/Creatinine Ratio 16 12 - 28 [facility] Sodium 140 134 - 144 mmol/L [facility] Potassium 4.7 3.5 - 5.2 mmol/L [facility] Chloride 104 96 - 106 mmol/L [facility] Total CO2 21 20 - 29 mmol/L [facility] Calcium 9.9 8.7 - 10.3 mg/dL [facility] Total Protein 6.6 6.0 - 8.5 g/dL [facility] Albumin 4.4 3.8 - 4.8 g/dL [facility] Globulin 2.2 1.5 - 4.5 g/dL [facility] Total Bilirubin 1.2 0.0 - 1.2 mg/dL [facility] Alkaline Phosphatase 68 44 - 121 IU/L [facility] AST (SGOT) 24 0 - 40 IU/L [facility] ALT (SGPT) 24 0 - 32 IU/L [facility] Blood Structure of left upper limb / Unknown 06/03/2025 2:23 PM EDT 06/03/2025 Comment:Blood Release to [facility]) - 06/04/2025 7:06 AM EDT Performed at: - [address] [id number] [employer]: Srinivasa Sosa PhD, Phone: [phone] Jimi Mcdermott MD LAB BLOOD ORDERABLES Final Res ult [facility] [address] [place] [address], [facility] [address] [place] [address], * T4, Free (06/03/2025 2:23 PM EDT) Free T4 1.11 0.82 - 1.77 ng/dL [facility] Blood Structure of left upper limb / Unknown 06/03/2025 2:23 PM EDT 06/03/2025 Comment:Blood Release to pat i [facility] (AMBULATORY) - 06/04/2025 7:06 AM EDT Performed at: [address] [place] [id number] [employer]: Srinivasa Sosa PhD, Phone: [phone] us Jimi Mcdermott MD LAB BLOOD ORDERABLES Final Res ult Performing Organization Address [facility] Co de Phone Number [facility]) [address] [place] [address], [facility] [address] [place] [address], [place] [phone] * TSH (06/03/2025 2:23 PM EDT) TSH 2.150 0.450 - 4.500 uIU/mL [facility] Blood Structure of left upper limb / Unknown 06/03/2025 2:23 PM EDT 06/03/2025 Comment:Blood Release to pat i [facility] (AMBULATORY) - 06/04/2025 7:06 AM EDT Performed at: [address] [place] [id number] [employer]: Srinivasa Sosa PhD, Phone: [phone] us Jimi Mcdermott MD LAB BLOOD ORDERABLES Final Res ult Performing Organization Address [facility] Co de Phone Number [facility]) [address] [place] [address], [place] [phone] [facility] [address] [place] [address], [place] [phone] * (ABNORMAL) POC Glucose, Blood (06/03/2025 2:15 PM EDT) Glucose 204(A) 70 - 130 mg/dL Lot Number [id number] Expiration Date 11/16/2025 Blood 06/03/2025 2:15 PM EDT us Jimi Mcdermott MD POINT OF CARE TEST ORDERABLES Final Result * (ABNORMAL) POC Glycosylated Hemoglobin (Hb A1C) (06/03/2025 2:15 PM EDT) Hemoglobin A1C 6.3(A) 4.5 - 5.7 % [facility] Lot Number [id number] [facility] Expiration Date 01/27/2027 [facility] Blood 06/03/2025 2:15 PM EDT us Jimi Mcdermott MD POINT OF CARE TEST ORDERABLES Final Result [facility]
[address] [place] [address], [place] [phone] documented in this encounter Visit Diagnoses Diagnosis Medicare annual wellness visit, subsequent- Primary Encounter for general adult medical examination with abnormal findings Coronary artery disease involving [place] coronary artery of [place] heart without angina pectoris Non-STEMI (non-ST elevated myocardial infarction) Acute myocardial infarction, subendocardial infarction, episode of care unspecified Endothelial dysfunction of coronary artery History of palpitations Type 2 diabetes mellitus with stage 2 chronic kidney disease, without long-term current use of insulin Primary hypertension Unspecified essential hypertension Mixed hyperlipidemia Subclinical hypothyroidism Other specified acquired hypothyroidism Mild obesity Vitamin D deficiency Autoimmune hepatitis Stage 3a chronic kidney disease Macrocytosis without anemia Other specified diseases of blood and blood-forming organs DIANDRA on CPAP Seasonal allergic rhinitis due to pollen COVID-19 vaccine administered documented in this encounter Care Teams [employer] Relationship Specialty Start Date End Date Jimi Mcdermott MD [address] [place] [address] [place] [address] PCP - General Internal Medicine 08/22/16 documented as of this encounter
--- OUTSIDE RECORDS SUMMARY | 2025-06-23 14:30 | XMS_ITS | Encounter Summary ---
[facility] Address [address] [place] [address] Care Team Providers Care 3D Designer Name Role Phone Jimi Mcdermott MD Primary Care Provider [phone] Encounter Details Date Type Department Care Team (Late st Contact Info) Description 06/23/2025 2:30 PM EDT Office Visit [facility] [address] [facility] [address] [place] [address] Mee Banks MD [address] [facility] [address] [place] [address] Macrocytosis without anemia (Primary Dx); Autoimmune hepatitis Social History Tobacco Use Types Packs/Day Years Used Date Smoking Tobacco: Never Smokeless Tobacco: Never Tobacco Cessation:Counseling Given: Not Answered Alcohol Use Standard Drinks/Week Comments Not Currently [...] Sign Reading Time Taken Comments Blood Pressure 120/67 06/23/2025 2:14 PM EDT Pulse 89 06/23/2025 2:14 PM EDT Temperature 36.4 C (97.6 F) 06/23/2025 2:14 PM EDT Respiratory Rate - - Oxygen Saturation 94% 06/23/2025 2:14 PM EDT Inhaled Oxygen Concentration - - Weight 78.9 kg (174 lb) 06/23/2025 2:14 PM EDT Height 160 cm (5' 2.99 ) 06/23/2025 2:14 PM EDT Body Mass Index 30.83 06/23/2025 2:14 PM EDT documented in this encounter Progress Notes * Mee Bansk MD - 06/23/2025 2:30 PM EDT Images from the original note were not included. Hematology and Oncology [place] Office number [phone] Fax number [phone] Follow up Date: 06/23/25 Patient Name: Sahra Velasquez : 1950 Referring Physician: Dr. Jimi Mcdermott MD Chief Complaint: Macrocytosis follow up History of Present Illness: Sahra Velasquez is a pleasant 74 y.o. female who presents today for evaluation of macrocytosis. She was noted by her PCP to have persistent macrocytosis with normal B12, folate and only rare social alcohol. She does have notable history of subclinical hypothyroidism. She was noted by her PCP to have a new onset macrocytosis in December 2020. This prompted work-up with thyroid studies, B12, and folate studies which were normal. Her CBC was also notable for a borderline leukopenia with ANC and lymphocyte count which were normal, but mild reduction in WBC count to4.4. Hemoglobin was normal with an MCV of 101. On her subsequent annual CBC in April 2022, her macrocytosis was noted to worsen, now with an MCV of 105. The WBC count had normalized, and the remainderof her CBC was normal. Notably she had normal CMP at this time. She is referred for further work-up. Has h/o autoimmune hepatitis on pred 5 mg, diagnosed 20 years ago. Has been unable to taper furtherand on this stable dose for many years. Follows with Dr. Chris Scott. Has been one other treatmentvery remotely by mouth but unable to tolerate it. No h/o cancer treatment or other immunosuppressants. No personal history of hematologic disorders. Mat uncle pernicious anemia. Niece brain tumor in her 30s. Had unstable angina in 08/2022, was admitted at [facility]. CBC that admission 08/21/22 showed WBC 3.5; hemoglobin 13.3; plt 229; MCV 105 Had LHC, nonobstructive CAD, medical management recommended. Interval history: Feeling well. Recently treated for Klebsiella UTI Previous to that was seen at [facility] with word finding difficulties, has had multiple episodes since. Had negative imaging in the ED and they thought it was a migraine, but these are not similar to prior migraine and much more frequent. She is planning to see neurology Has continued to follow with Dr. Scott for autoimmune hepatitis. Next cscope planned 2025. Past Medical History: Past Medical History: Diagnosis Date Autoimmune hepatitis Diabetes mellitus Enlarged thyroid Fibrocystic breast changes, bilateral GERD (gastroesophageal reflux disease) History of unstable angina Hyperlipidemia Hypertension Menopause Vitamin D deficiency Past Surgical History: Past Surgical History: Procedure Laterality Date BLEPHAROPLASTY Bilateral CARPAL TUNNEL RELEASE Left CATARACT EXTRACTION Bilateral SECTION CHOLECYSTECTOMY COLONOSCOPY W/ POLYPECTOMY 05/25/2021 5 separate less than 3 mm size polyps, repeat study 3 to [address] Scott EYE PTOSIS REPAIR HYSTEROSCOPY W/ POLYPECTOMY D&C ULNAR NERVE REPAIR Left Family History: Family History Problem Relation Age of Onset Coronary artery disease Father Heart attack Father Hypertension Mother Diabetes Sister Diabetes Sister Stroke Maternal Grandfather Dementia Maternal Grandfather Dementia Maternal Aunt Pernicious anemia Maternal Uncle Social History: Social History Socioeconomic History Marital status: Tobacco Use Smoking status: Never Smokeless tobacco: Never Vaping Use Vaping status: Never Used Substance and Sexual Activity Alcohol use: Not Currently Comment: rarely Drug use: No Sexual activity: Not Currently Partners: Male control/protection: Post-menopausal Medications: Current Outpatient Medications: Accu-Chek Kerry Plus test strip, Use to check blood sugar levels. E11.9 Once daily, Disp: 100 each,Rfl: 3 Accu-Chek Softclix Lancets lancets, Use to check blood sugar levels. E11.9, Disp: 100 each, Rfl: 1 aspirin 81 MG EC tablet, Take 1 tablet by mouth Daily., Disp: , Rfl: atorvastatin (LIPITOR) 40 MG tablet, Take 1 tablet by mouth every night at bedtime., Disp: , Rfl: Blood Glucose Monitoring Suppl (ACCU-CHEK KERRY PLUS) w/Device kit, , Disp: , Rfl: Calcium Carbonate-Vitamin D3 600-400 MG-UNIT tablet, Take 1 tablet by mouth Daily. (Patient taking differently: Take 1 tablet by mouth 2 (Two) Times a Day.), Disp: , Rfl: fluticasone (Flonase) 50 MCG/ACT nasal spray, 2 sprays into the nostril(s) as directed by provider Daily., Disp: 16 mL, Rfl: 5 lansoprazole (PREVACID) 30 MG capsule, Take 1 capsule by mouth once daily, Disp: 90 capsule, Rfl: 2 losartan (COZAAR) 50 MG tablet, Take 1 tablet by mouth Daily., Disp: , Rfl: metFORMIN (GLUCOPHAGE) 500 MG tablet, TAKE 1 TABLET BY MOUTH TWICE DAILY WITH MEALS, Disp: 60 tablet, Rfl: 3 metoprolol succinate XL (TOPROL-XL) 25 MG 24 hr tablet, TAKE 1 TABLET BY MOUTH IN THE MORNING, Disp: 90 tablet, Rfl: 0 montelukast (Singulair) 10 MG tablet, Take 1 tablet by mouth Every Night. For prevention of allergies, Disp: 90 tablet, Rfl: 3 Multiple Vitamins-Minerals (MULTIVITAMIN ADULTS 50+ PO), Take 1 tablet by mouth Daily., Disp: , Rfl: nitroglycerin (NITROSTAT) 0.4 MG SL tablet, DISSOLVE ONE TABLET UNDER THE TONGUE EVERY 5 MINUTES ASNEEDED FOR CHEST PAIN. DO NOT EXCEED A TOTAL OF 3 DOSES IN 15 MINUTES, Disp: 25 tablet, Rfl: 1 predniSONE (DELTASONE) 5 MG tablet, Take 1 tablet by mouth Daily., Disp: 90 tablet, Rfl: 3 Probiotic Product (PROBIOTIC DAILY PO), Take by mouth., Disp: , Rfl: spironolactone (ALDACTONE) 25 MG tablet, Take 1 tablet by mouth Daily., Disp: , Rfl: OTCs include: melatonin, flaxseed, B complex, and vitamin E Allergies: Allergies Allergen Reactions Acetaminophen Mental Status Change Cephalosporins Rash Demerol [Meperidine] Itching Sulfa Antibiotics Rash Tetracyclines & Related Rash Objective Vital Signs: Vitals: 06/23/25 1414 BP: 120/67 Pulse: 89 Temp: 97.6 ??F (36.4 ??C) TempSrc: Infrared SpO2: 94% Weight: 78.9 kg (174 lb) Height: 160 cm (62.99 ) PainSc: 0-No pain Body mass index is 30.83 kg/m??. Pain Score 06/23/25 1414 PainSc: 0-No pain Physical Exam: General: No acute distress. Well appearing HEENT: Normocephalic, atraumatic. Sclera anicteric. Neck: supple, no adenopathy. Cardiovascular: regular rate and rhythm,. No murmurs. Respiratory: Normal rate. Clear to auscultation bilaterally. Abdomen: Soft, nontender, non distended with normoactive bowel sounds. Lymph: no cervical, supraclavicular or axillary adenopathy. Neuro: Alert and oriented x 3. No focal deficits. Ext: Symmetric, no swelling. Accurate as of 06/22/25 Laboratory/Imaging Reviewed: No visits with results within 2 Week(s) from this visit. Latest known visit with results is: Office Visit on 06/03/2025 Component Date Value Ref Range Status Hemoglobin A1C 06/03/2025 6.3 (A) 4.5 - 5.7 % Final Lot Number 06/03/2025 [id number] Final Expiration Date 06/03/2025 01/27/2027 Final Glucose 06/03/2025 204 (A) 70 - 130 mg/dL Final Lot Number 06/03/2025 [id number] Final Expiration Date 06/03/2025 11/16/2025 Final POC ALBUMIN, URINE 06/03/2025 10 mg/L Final POC CREATININE, URINE 06/03/2025 300 mg/dL Final POC Urine Albumin Creatinine Ratio 06/03/2025 <30 <30 Final Lot Number 06/03/2025 [id number] Final Expiration Date 06/03/2025 06/11/2026 Final Folate 06/03/2025 >20.0 >3.0 ng/mL Final Comment: A serum folate concentration of less than 3.1 ng/mL is considered to represent clinical deficiency. Vitamin B-12 06/03/2025 920 232 - 1,245 pg/mL Final Specific [place], UA 06/03/2025 1.021 1.005 - 1.030 Final pH, UA 06/03/2025 5.5 5.0 - 7.5 Final Color, UA 06/03/2025 Yellow Yellow Final Appearance, UA 06/03/2025 Clear Clear Final Leukocytes, UA 06/03/2025 1+ (A) Negative Final Protein 06/03/2025 Negative Negative/Trace Final Glucose, UA 06/03/2025 Negative Negative Final Ketones 06/03/2025 Negative Negative Final Blood, UA 06/03/2025 Negative Negative Final Bilirubin, UA 06/03/2025 Negative Negative Final Urobilinogen, UA 06/03/2025 0.2 0.2 - 1.0 mg/dL Final Nitrite, UA 06/03/2025 Negative Negative Final Microscopic Examination 06/03/2025 See below: Final Microscopic was indicated and was performed. Urinalysis Reflex 06/03/2025 Comment Final This specimen has reflexed to a Urine Culture. 25 Hydroxy, Vitamin D 06/03/2025 68.5 30.0 - 100.0 ng/mL Final Comment: Vitamin D deficiency has been defined by the [place] of Medicine and an Endocrine Society practice guideline as a level of serum 25-OH vitamin D less than 20 ng/mL (1,2). The Endocrine Society went on to further define vitamin D insufficiency as a level between 21 and 29 ng/mL (2). 1. IOM ([place] of Medicine). 2010. Dietary reference intakes for calcium and D. [place]: The National Academies Press. 2. Joe MF, Sae NC, Gretchen VILLEGAS, et al. Evaluation, treatment, and prevention of vitamin D deficiency: an Endocrine Society clinical practice guideline. JCEM. 2010; 96(7):1911-30. Total Cholesterol 06/03/2025 128 100 - 199 mg/dL Final Triglycerides 06/03/2025 216 (H) 0 - 149 mg/dL Final HDL Cholesterol 06/03/2025 43 >39 mg/dL Final VLDL Cholesterol Nirav 06/03/2025 35 5 - 40 mg/dL Final LDL Chol Calc (NIH) 06/03/2025 50 0 - 99 mg/dL Final WBC 06/03/2025 5.5 3.4 - 10.8 x10E3/uL Final RBC 06/03/2025 4.07 3.77 - 5.28 x10E6/uL Final Hemoglobin 06/03/2025 13.5 11.1 - 15.9 g/dL Final Hematocrit 06/03/2025 42.6 34.0 - 46.6 % Final MCV 06/03/2025 105 (H) 79 - 97 fL Final MCH 06/03/2025 33.2 (H) 26.6 - 33.0 pg Final MCHC 06/03/2025 31.7 31.5 - 35.7 g/dL Final RDW 06/03/2025 12.8 11.7 - 15.4 % Final Platelets 06/03/2025 197 150 - 450 x10E3/uL Final Neutrophil Rel % 06/03/2025 83 Not Estab. % Final Lymphocyte Rel % 06/03/2025 7 Not Estab. % Final Monocyte Rel % 06/03/2025 8 Not Estab. % Final Eosinophil Rel % 06/03/2025 2 Not Estab. % Final Basophil Rel % 06/03/2025 0 Not Estab. % Final Neutrophils Absolute 06/03/2025 4.6 1.4 - 7.0 x10E3/uL Final Lymphocytes Absolute 06/03/2025 0.4 (L) 0.7 - 3.1 x10E3/uL Final Monocytes Absolute 06/03/2025 0.4 0.1 - 0.9 x10E3/uL Final Eosinophils Absolute 06/03/2025 0.1 0.0 - 0.4 x10E3/uL Final Basophils Absolute 06/03/2025 0.0 0.0 - 0.2 x10E3/uL Final Immature Granulocyte Rel % 06/03/2025 0 Not Estab. % Final Immature Grans Absolute 06/03/2025 0.0 0.0 - 0.1 x10E3/uL Final Glucose 06/03/2025 130 (H) 70 - 99 mg/dL Final BUN 06/03/2025 19 8 - 27 mg/dL Final Creatinine 06/03/2025 1.20 (H) 0.57 - 1.00 mg/dL Final EGFR Result 06/03/2025 47 (L) >59 mL/min/1.73 Final BUN/Creatinine Ratio 06/03/2025 16 12 - 28 Final Sodium 06/03/2025 140 134 - 144 mmol/L Final Potassium 06/03/2025 4.7 3.5 - 5.2 mmol/L Final Chloride 06/03/2025 104 96 - 106 mmol/L Final Total CO2 06/03/2025 21 20 - 29 mmol/L Final Calcium 06/03/2025 9.9 8.7 - 10.3 mg/dL Final Total Protein 06/03/2025 6.6 6.0 - 8.5 g/dL Final Albumin 06/03/2025 4.4 3.8 - 4.8 g/dL Final Globulin 06/03/2025 2.2 1.5 - 4.5 g/dL Final Total Bilirubin 06/03/2025 1.2 0.0 - 1.2 mg/dL Final Alkaline Phosphatase 06/03/2025 68 44 - 121 IU/L Final AST (SGOT) 06/03/2025 24 0 - 40 IU/L Final ALT (SGPT) 06/03/2025 24 0 - 32 IU/L Final Free T4 06/03/2025 1.11 0.82 - 1.77 ng/dL Final TSH 06/03/2025 2.150 0.450 - 4.500 uIU/mL Final WBC, UA 06/03/2025 6-10 (A) 0 - 5 /hpf Final RBC, UA 06/03/2025 0-2 0 - 2 /hpf Final Epithelial Cells (non renal) 06/03/2025 0-10 0 - 10 /hpf Final Casts 06/03/2025 None seen None seen /lpf Final Crystals, UA 06/03/2025 Present (A) N/A Final Crystal Type 06/03/2025 Calcium Oxalate N/A Final Bacteria, UA 06/03/2025 Moderate (A) None seen/Few Final Urine Culture 06/03/2025 Final report (A) Final Result 1 06/03/2025 Klebsiella pneumoniae (A) Final Comment: Cefazolin with an NELLA <=16 predicts susceptibility to the oral agents cefaclor, cefdinir, cefpodoxime, cefprozil, cefuroxime, cephalexin, and loracarbef when used for therapy of uncomplicated urinary tract infections due to E. coli, Klebsiella pneumoniae, and Proteus mirabilis. 50,000-100,000 colony forming units per mL Susceptibility Testing 06/03/2025 Comment Final Comment: S = Susceptible; I = Intermediate; R = Resistant P = Positive; N = Negative MICS are expressed in micrograms per mL Antibiotic RSLT#1 RSLT#2 RSLT#3 RSLT#4 Amoxicillin/Clavulanic Acid S Ampicillin R Cefazolin S Cefepime S Cefoxitin S Cefpodoxime S Ceftriaxone S Ciprofloxacin S Ertapenem S Gentamicin S Levofloxacin S Meropenem S Nitrofurantoin S Piperacillin/Tazobactam S Tetracycline S Tobramycin S Trimethoprim/Sulfa S Component Latest Ref Rng 06/01/2024 Folate >3.0 ng/mL >20.0 Vitamin B-12 232 - 1,245 pg/mL 816 No results found. CBC 08/21/22 showed WBC 3.5; hemoglobin 13.3; plt 229; MCV 105 Assessment / Plan Assessment/Plan: 1. Macrocytosis without anemia 2. Autoimmune hepatitis I reviewed her available CBCs from 2020 and 2021. She is noted to have a progressive macrocytosis, with otherwise normal blood counts. B12 and folate as well as thyroid studies from 2020 were normal.She does not have a history of heavy alcohol use. We discussed that the macrocytosis can sometimes be caused by medications, yqkv-ast-hnykxne supplements, vitamin or mineral deficiencies, alcohol use, liver disease, or underlying bone marrow disorders. -I suspect mild macrocytosis is due to underlying liver disease -I offered her a bone marrow biopsy, versus continuing to monitor the macrocytosis and consideration of bone marrow biopsy if she develops cytopenias or progressive macrocytosis. -Given overall stability of her labs she elects for continued CBC monitoring. CBC/CMP from 06/2025 reviewed and stable for over 2 years. Follow Up: Q 6 mo CBC, which she prefers to coordinate through her PCP. Recommend referral back to hematology if progressive CBC derangements. She will follow up with me on an as needed basis. Mee Banks MD Hematology and Oncology documented in this encounter Plan of Treatment Upcoming Encounters Date Type Department Care Team (Late st Contact Info) Description 12/20/2025 1:00 PM EST Office Visit [facility] [address] [place] [address] [place] [phone] Jimi Mcdermott MD [address] [place] [address] [place] [id number] 03/13/2026 2:30 PM EDT Office Visit [facility] [address] [facility] [address] [place] [phone] Jody Ricci MD [address] [facility] [address] [place] [address] 06/07/2026 11:00 AM EDT Office Visit [facility] [address] [place] [phone] Jimi Mcdermott MD [address] [place] [address] 06/22/2026 1:45 PM EDT Office Visit [facility] [address] [facility] [address] [place] [address] Mee Banks MD [address] [facility] [address] [place] [address] documented as of this encounter Visit Diagnoses Diagnosis Macrocytosis without anemia- Primary Other specified diseases of blood and blood-forming organs Autoimmune hepatitis documented in this encounter Care Teams 3D Designer Relationship Specialty Start Date End Date Jimi Mcdermott MD [address] [place] [address] [place] [address] PCP - General Internal Medicine 08/22/16 documented as of this encounter
--- OUTSIDE RECORDS SUMMARY | 2025-06-29 12:00 | XMS_ITS | Encounter Summary ---
Author Organization [facility] Address [address] [place] [address] Care Team Providers Care Assisted Living Assistant Name Role Phone Jimi Mcdermott MD Primary Care Provider [phone] Reason for Referral * Consultation (Routine) - Authorized - Pending Scheduling Specialty Diagnoses / Procedures Referred By Bety lennon Referred To Contact Neurology Diagnoses Migraine with aura and without status migrainosus, not intractable Dysarthria Procedures [place] OFFICE/OUTPATIENT NEW MODERATE MDM 45 MINUTES Jimi Mcdermott MD [address] [place] [address] [place] [address] Phone: tel: fax: Sylvia Hernandez MD [address] [facility] [address] [place] [address] Phone: tel: fax: Referral ID Status Reason Start Date Expiration Date Visits Requested Visits Authorized Authorized - Pending Scheduling Specialty Services Required 06/29/2025 09/28/2026 1 1 Scheduling Instructions Schedule with Dr Hernandez in [place] Reason for Visit * Reason Comments refer to Dr. Hernandez neuro Encounter Details Date Type Department Care Team (Late st Contact Info) Description 06/29/2025 12:00 PM EDT Office Visit [facility] PRIMARY CARE [address] [place] [address] [phone] [phone] Jimi Mcdermott MD [address] [place] [address] [place] [id number] Migraine with aura and without status migrainosus, not intractable (Primary Dx); Dysarthria; Type 2 diabetes mellitus with stage 3a chronic kidney disease, without long-term current use of insulin; Primary hypertension Social History Tobacco Use Types Packs/Day Years [...] Sign Reading Time Taken Comments Blood Pressure 129/85 06/29/2025 12:10 PM EDT Pulse 68 06/29/2025 12:10 PM EDT Temperature 36.6 C (97.9 F) 06/29/2025 12:10 PM EDT Respiratory Rate - - Oxygen Saturation 97% 06/29/2025 12:10 PM EDT Inhaled Oxygen Concentration - - Weight 79 kg (174 lb 3.2 oz) 06/29/2025 12:10 PM EDT Height 160 cm (5' 3 ) 06/29/2025 12:10 PM EDT Body Mass Index 30.86 06/29/2025 12:10 PM EDT documented in this encounter Progress Notes * Jimi Mcdermott MD - 06/29/2025 1:31 PM EDTAssociated Problem(s): Migraine with aura and without status migrainosus, not intractable History of migraine headaches onset at age 12, persisted through menopause, subsequently did not have any significant problems until 2 months ago has had a recurrent pattern of visual scotoma unilaterally, on one-sided the other followed by a less severe headache that she had noticed as a younger woman, and associated calmly though not consistently with some dysarthria. Clinical picture is most consistent with migraine pattern, having been seen for this problem in the ER at [facility] in 04/[address] angiogram of the head and neck and no acute abnormalities noted on CT of the head. Her examination today is completely normal. Refer to Dr. Hernandez of neurology. Targetedtreatment not been initiated today pending neurology consultation. * Jimi Mcdermott MD - 06/29/2025 1:29 PM EDTAssociated Problem(s): Dysarthria Pattern of expressive dysarthria associated with preceding visual aura and subsequent mild headache. Consistent with migraine syndrome, less likely consistent with TIA. Negative workup during ER evaluation in 04/[address] of the head with no acute changes, and unremarkable CT angiogram of the head and neck.. Most recently has been occurring by history 9 separate episodes over the last 2 months, most recent episode on 06/17/2025. Patient reports remotely premenopausal did havesimilar pattern of headaches which were much more profound at that time. Will refer to neurology for further evaluation. * Jimi Mcdermott MD - 06/29/2025 1:27 PM EDTAssociated Problem(s): Diabetes mellitus Maintains excellent glycemic control taking metformin XL 500 mg twice daily as monotherapy. UACR negative in 06/2025, most recent creatinine 1.2 and GFR 47 in 06/2025. On losartan and Aldactone. Repeathemoglobin A1c in 6 months * Jimi Mcdermott MD - 06/29/2025 1:25 PM EDTAssociated Problem(s): Hypertension Maintaining satisfactory blood pressure control on losartan 50 mg daily, metoprolol XL 25 mg daily and Aldactone 25 mg daily. Continue current regimen with monitoring. * Jimi Mcdermott MD - 06/29/2025 12:00 PM EDT Images from the original note were not included. Follow Up Office Visit Date: 06/29/2025 Patient Name: Sahra Velasquez : 1950 Chief Complaint: Chief Complaint Patient presents with refer to Dr. Hernandez neuro History of Present Illness: Sahra Velasquez is a 74 y.o. female who is here today for evaluation of headaches and request for referral to Dr. Hernandez of neurology. Patient relates since 12 years of age up through menopause that she had fairly frequent migraine headaches typically starting as a visual aura on 1 side of the other followed by a subsequent unilateral throbbing headache, resolving after se veral hours historically. She really did not have much problem after she went through menopause, but does note approximately 2 months ago having similar pattern developing again. In 04/2025 seen in the [facility] emergency room after having developed visual scotoma associated with some trouble with word expression, was seen in the emergency room for possible TIA, had a negative workup including CT of the head as well as CT angiogram of the head and neck. Relates having 8 more similar type episode over the last 2 months, 4 in May and most recently 4 in 06/2025 most recently 06/17/2025. Typically each episode with the start is some visual changes and one-sided or the other followed more recently but not consistently with transient difficulty with word expression and dysarthria, symptoms lasting about 10 or 15 minutes followed more recently by more of a dull nonthrobbing headaches that is unilateral, this lasting off-and-on for several hours into the next day. There are no other focal symptoms. This pattern has been recurrent each time, and in hindsight did occur to some degree when she remotely had headaches. Does have a history of a non-STEMI with a subsequent normal left heart cath in 2021 felt secondary to endothelial dysfunction. She does take aspirin with Plavixhaving been subsequently discontinued, as well as Lipitor and losartan. Is a type II diabetic historically with good control taking metformin as monotherapy, hypertension historically well-controlledtaking losartan metoprolol and Aldactone. I did review of testing obtained at [facility] on 04/28/2025. Subjective Review of Systems: Review of Systems I have reviewed the patients family history, social history, past medical history, past surgical history and have updated it as appropriate. Medications: Current Outpatient Medications: Accu-Chek Kerry Plus test strip, Use to check blood sugar levels. E11.9 Once daily, Disp: 50 each, Rfl: 3 Accu-Chek Softclix Lancets lancets, Use to [...] tablet by mouth Daily., Disp: , Rfl: Allergies: Allergies Allergen Reactions Acetaminophen Mental Status Change Cephalosporins Rash Demerol [Meperidine] Itching Sulfa Antibiotics Rash Tetracyclines & Related Rash Objective Physical Exam: Please see above Vital Signs: Vitals: 06/29/25 1210 BP: 129/85 Pulse: 68 Temp: 97.9 ??F (36.6 ??C) TempSrc: Temporal SpO2: 97% Weight: 79 kg (174 lb 3.2 oz) Height: 160 cm (63 ) Body mass index is 30.86 kg/m??. Physical Exam Constitutional: Appearance: Normal appearance. Neck: Vascular: No carotid bruit. Cardiovascular: Rate and Rhythm: Normal rate and regular rhythm. Heart sounds: Normal heart sounds. No murmur heard. No friction rub. No gallop. Pulmonary: Effort: Pulmonary effort is normal. No respiratory distress. Breath sounds: Normal breath sounds. Musculoskeletal: Cervical back: No rigidity. Lymphadenopathy: Cervical: No cervical adenopathy. Neurological: General: No focal deficit present. Mental Status: She is oriented to person, place, and time. Mental status is at baseline. Cranial Nerves: No cranial nerve deficit. Sensory: No sensory deficit. Motor: No weakness. Coordination: Coordination normal. Gait: Gait normal. Comments: Cranial nerves II through XII intact, motor and sensory exam throughout her face and extremities normal, finger-nose testing intact bilaterally, negative Romberg, normal tandem gait, alert and oriented, fluent speech. Essentially a normal neurological exam. Psychiatric: Mood and Affect: Mood normal. Behavior: Behavior normal. Thought Content: Thought content normal. Judgment: Judgment normal. Procedures Results: Labs: Hemoglobin A1C Date Value Ref Range Status 06/03/2025 6.3 (A) 4.5 - 5.7 % Final 04/23/2022 6.5 Final TSH Date Value Ref Range Status 06/03/2025 2.150 0.450 - 4.500 uIU/mL Final 06/22/2024 1.950 0.270 - 4.200 uIU/mL Final POCT Results (if applicable): Results for orders placed or performed in visit on 06/03/25 POC Glycosylated Hemoglobin (Hb A1C) Collection Time: 06/03/25 2:15 PM Specimen: Blood Result Value Ref Range Hemoglobin A1C 6.3 (A) 4.5 - 5.7 % Lot Number [id number] Expiration Date 01/27/2027 POC Glucose, Blood Collection Time: 06/03/25 2:15 PM Specimen: Blood Result Value Ref Range Glucose 204 (A) 70 - 130 mg/dL Lot Number [id number] Expiration Date 11/16/2025 Folate Collection Time: 06/03/25 2:23 PM Specimen: Arm, Left; Blood Blood Release to vernon Result Value Ref Range Folate >20.0 >3.0 ng/mL Vitamin B12 Collection Time: 06/03/25 2:23 PM Specimen: Arm, Left; Blood Blood Release to vernon Result Value Ref Range Vitamin B-12 920 232 - 1,245 pg/mL UA / M With / Rflx Culture([facility] ONLY) - Urine, Clean Catch Collection Time: 06/03/25 2:23 PM Specimen: Urine, Clean Catch Urine Release to vernon Result Value Ref Range Specific [place], UA 1.021 1.005 - 1.030 pH, UA 5.5 5.0 - 7.5 Color, UA Yellow Yellow Appearance, UA Clear Clear Leukocytes, UA 1+ (A) Negative Protein Negative Negative/Trace Glucose, UA Negative Negative Ketones Negative Negative Blood, UA Negative Negative Bilirubin, UA Negative Negative Urobilinogen, UA 0.2 0.2 - 1.0 mg/dL Nitrite, UA Negative Negative Microscopic Examination See below: Urinalysis Reflex Comment Vitamin D,25-Hydroxy Collection Time: 06/03/25 2:23 PM Specimen: Arm, Left; Blood Blood Release to vernon Result Value Ref Range 25 Hydroxy, Vitamin D 68.5 30.0 - 100.0 ng/mL Lipid Panel Collection Time: 06/03/25 2:23 PM Specimen: Arm, Left; Blood Blood Release to vernon Result Value Ref Range Total Cholesterol 128 100 - 199 mg/dL Triglycerides 216 (H) 0 - 149 mg/dL HDL Cholesterol 43 >39 mg/dL VLDL Cholesterol Nirav 35 5 - 40 mg/dL LDL Chol Calc (NIH) 50 0 - 99 mg/dL Comprehensive Metabolic Panel Collection Time: 06/03/25 2:23 PM Specimen: Arm, Left; Blood Blood Release to vernon Result Value Ref Range Glucose 130 (H) 70 - 99 mg/dL BUN 19 8 - 27 mg/dL Creatinine 1.20 (H) 0.57 - 1.00 mg/dL EGFR Result 47 (L) >59 mL/min/1.73 BUN/Creatinine Ratio 16 12 - 28 Sodium 140 134 - 144 mmol/L Potassium 4.7 3.5 - 5.2 mmol/L Chloride 104 96 - 106 mmol/L Total CO2 21 20 - 29 mmol/L Calcium 9.9 8.7 - 10.3 mg/dL Total Protein 6.6 6.0 - 8.5 g/dL Albumin 4.4 3.8 - 4.8 g/dL Globulin 2.2 1.5 - 4.5 g/dL Total Bilirubin 1.2 0.0 - 1.2 mg/dL Alkaline Phosphatase 68 44 - 121 IU/L AST (SGOT) 24 0 - 40 IU/L ALT (SGPT) 24 0 - 32 IU/L T4, Free Collection Time: 06/03/25 2:23 PM Specimen: Arm, Left; Blood Blood Release to vernon Result Value Ref Range Free T4 1.11 0.82 - 1.77 ng/dL TSH Collection Time: 06/03/25 2:23 PM Specimen: Arm, Left; Blood Blood Release to vernon Result Value Ref Range TSH 2.150 0.450 - 4.500 uIU/mL Microscopic Examination - Collection Time: 06/03/25 2:23 PM Urine Release to vernon Result Value Ref Range WBC, UA 6-10 (A) 0 - 5 /hpf RBC, UA 0-2 0 - 2 /hpf Epithelial Cells (non renal) 0-10 0 - 10 /hpf Casts None seen None seen /lpf Crystals, UA Present (A) N/A Crystal Type Calcium Oxalate N/A Bacteria, UA Moderate (A) None seen/Few Urine Culture, Routine - Collection Time: 06/03/25 2:23 PM Urine Release to vernon Result Value Ref Range Urine Culture Final report (A) Result 1 Klebsiella pneumoniae (A) Susceptibility Testing Comment CBC & Differential Collection Time: 06/03/25 2:23 PM Specimen: Arm, Left; Blood Blood Release to vernon Result Value Ref Range WBC 5.5 3.4 - 10.8 x10E3/uL RBC 4.07 3.77 - 5.28 x10E6/uL Hemoglobin 13.5 11.1 - 15.9 g/dL Hematocrit 42.6 34.0 - 46.6 % MCV 105 (H) 79 - 97 fL MCH 33.2 (H) 26.6 - 33.0 pg MCHC 31.7 31.5 - 35.7 g/dL RDW 12.8 11.7 - 15.4 % Platelets 197 150 - 450 x10E3/uL Neutrophil Rel % 83 Not Estab. % Lymphocyte Rel % 7 Not Estab. % Monocyte Rel % 8 Not Estab. % Eosinophil Rel % 2 Not Estab. % Basophil Rel % 0 Not Estab. % Neutrophils Absolute 4.6 1.4 - 7.0 x10E3/uL Lymphocytes Absolute 0.4 (L) 0.7 - 3.1 x10E3/uL Monocytes Absolute 0.4 0.1 - 0.9 x10E3/uL Eosinophils Absolute 0.1 0.0 - 0.4 x10E3/uL Basophils Absolute 0.0 0.0 - 0.2 x10E3/uL Immature Granulocyte Rel % 0 Not Estab. % Immature Grans Absolute 0.0 0.0 - 0.1 x10E3/uL POC Albumin/Creatinine Ratio Urine Collection Time: 06/03/25 3:08 PM Specimen: Urine Result Value Ref Range POC ALBUMIN, URINE 10 mg/L POC CREATININE, URINE 300 mg/dL POC Urine Albumin Creatinine Ratio <30 <30 Lot Number [id number] Expiration Date 06/11/2026 Assessment / Plan Assessment/Plan: Diagnoses and all orders for this visit: 1. Migraine with aura and without status migrainosus, not intractable (Primary) Assessment & Plan: History of migraine headaches onset at age 12, persisted through menopause, subsequently did not have any significant problems until 2 months ago has had a recurrent pattern of visual scotoma unilaterally, on one-sided the other followed by a less severe headache that she had noticed as a younger woman, and associated calmly though not consistently with some dysarthria. Clinical picture is most consistent with migraine pattern, having been seen for this problem in the ER at [facility] in 04/[address] angiogram of the head and neck and no acute abnormalities noted on CT of the head. Her examination today is completely normal. Refer to Dr. Hernandez of neurology. Targetedtreatment not been initiated today pending neurology consultation. Orders: - Ambulatory Referral to Neurology 2. Dysarthria Assessment & Plan: Pattern of expressive dysarthria associated with preceding visual aura and subsequent mild headache. Consistent with migraine syndrome, less likely consistent with TIA. Negative workup during ER evaluation in 04/[address] of the head with no acute changes, and unremarkable CT angiogram of the head and neck.. Most recently has been occurring by history 9 separate episodes over the last 2 months, most recent episode on 06/17/2025. Patient reports remotely premenopausal did havesimilar pattern of headaches which were much more profound at that time. Will refer to neurology for further evaluation. Orders: - Ambulatory Referral to Neurology 3. Type 2 diabetes mellitus with stage 3a chronic kidney disease, without long- term current use of insulin Assessment & Plan: Maintains excellent glycemic control taking metformin XL 500 mg twice daily as monotherapy. UACR negative in 06/2025, most recent creatinine 1.2 and GFR 47 in 06/2025. On losartan and Aldactone. Repeathemoglobin A1c in 6 months 4. Primary hypertension Assessment & Plan: Maintaining satisfactory blood pressure control on losartan 50 mg daily, metoprolol XL 25 mg daily and Aldactone 25 mg daily. Continue current regimen with monitoring. Vaccine Counseling: Follow Up: Return in about 6 months (around 12/30/2025) for Next scheduled follow up. At [facility], we believe that sharing information builds trust and better relationships. You are receiving this note because you recently visited [facility]. It is possible you will see health information before a provider has talked with you about it. This kind of information can be easy to misunderstand. To help you fully understand what it means for your health, we urge you to discussthis note with your provider. Jimi Mcdermott MD [facility] [place] documented in this encounter Plan of Treatment Upcoming Encounters Date Type Department Care Team (Late st Contact Info) Description 12/20/2025 1:00 PM EST Office Visit [facility] PRIMARY CARE [address] [place] [address] [place] [phone] Jimi Mcdermott MD [address] [place] [address] [place] [id number] 03/13/2026 2:30 PM EDT Office Visit [facility] GYNECOLOGY [address] [facility] [address] [place] [phone] Jody Ricci MD [address] [place] [address] 06/07/2026 11:00 AM EDT Office Visit [facility] PRIMARY CARE [address] [place] [phone] Jimi Mcdermott MD [address] [place] [id number] 06/22/2026 1:45 PM EDT Office Visit [facility] HEMATOLOGY & ONCOLOGY [address] [facility] [address] [place] [phone] Mee Banks MD [address] [place] [address] documented as of this encounter Visit Diagnoses Diagnosis Migraine with aura and without status migrainosus, not intractable- Primary Dysarthria Type 2 diabetes mellitus with stage 3a chronic kidney disease, without long-term current use of insulin Primary hypertension Unspecified essential hypertension documented in this encounter Care Teams Assisted Living Assistant Relationship Specialty Start Date End Date Jimi Mcdermott MD [address] [place] [address] PCP - General Internal Medicine 08/22/16 documented as of this encounter
--- OUTSIDE RECORDS SUMMARY | 2025-08-02 09:42 | XMS_ITS | Encounter Summary ---
[facility] Address [address] [place] [id number] Care Team Providers Care Street Worker Name Role Phone Jimi Mcdermott MD Primary Care Provider [phone] Reason for Visit * Reason Onset Date Comments Med Refill 06/29/2025 Encounter Details Date Type Department Care Team (Late st Contact Info) Description 06/29/2025 Refill [facility] [address] [place] [address] [place] [address] Jimi Mcdermott MD [address] [place] [address] [address] [place] [id number] Social History Tobacco Use Types Packs/Day Years [...] on file documented as of this encounter Miscellaneous Notes * Telephone Encounter - Brianna Ash - 06/29/2025 9:10 AM EDT Clementina with heath has called stating that her insurance will only cover her strips 50 count at a time. I have refilled for her. TF documented in this encounter Plan of Treatment Upcoming Encounters Date Type Department Care Team (Late st Contact Info) Description 12/20/2025 1:00 PM EST Office Visit [facility] [address] [place] [address] [place] [address] Jimi Mcdermott MD [address] [place] [address] [place] [address] 03/13/2026 2:30 PM EDT Office Visit [facility] [address] [facility] [address] [place] [phone] Jody Ricci MD [address] [facility] [address] [place] [address] 06/07/2026 11:00 AM EDT Office Visit [facility] [address] [place] [address] [place] [address] Jimi Mcdermott MD [address] [place] [address] [place] [address] 06/22/2026 1:45 PM EDT Office Visit [facility] HEMATOLOGY & ONCOLOGY [address] [facility] [address] [place] [address] Mee Banks MD [address] [facility] [address] [place] [address] documented as of this encounter Visit Diagnoses Not on filedocumented in this encounter Care Teams Street Worker Relationship Specialty Start Date End Date Jimi Mcdermott MD [address] [place] [address] [place] [address] PCP - General Internal Medicine 08/22/16 documented as of this encounter
--- OUTSIDE RECORDS SUMMARY | 2025-08-02 09:42 | XMS_ITS | Encounter Summary ---
[facility] Address [address] [place] [id number] Care Team Providers Care Oracle Ebs Consultant Name Role Phone Jimi Mcdermott MD Primary Care Provider [phone] Encounter Details Date Type Department Care Team (Latest Contact Info) Description 06/03/2025 Travel Social History Tobacco Use Types Packs/Day Years [...] on file documented as of this encounter Functional Status documented as of this encounter Plan of Treatment Upcoming Encounters Date Type Department Care Team (Late st Contact Info) Description 12/20/2025 1:00 PM EST Office Visit [facility] PRIMARY [facility] [address] [place] [address] Jimi Mcdermott MD [address] [place] [address] 03/13/2026 2:30 PM EDT Office Visit [facility] GYNECOLOGY [address] [address] Jody Ricci MD [address] [address] 06/07/2026 11:00 AM EDT Office Visit [facility] PRIMARY [facility] [address] [place] [address] Jimi Mcdermott MD [address] [place] [address] 06/22/2026 1:45 PM EDT Office Visit [facility] HEMATOLOGY & ONCOLOGY [address] [facility] [address] [place] [address] Mee Banks MD 1700 [facility] [address] [place] [address] documented as of this encounter Visit Diagnoses Not on filedocumented in this encounter Care Teams Oracle Ebs Consultant Relationship Specialty Start Date End Date Jimi Mcdermott MD [address] [place] [address] PCP - General Internal Medicine 08/22/16 documented as of this encounter
--- OUTSIDE RECORDS SUMMARY | 2025-08-02 09:42 | XMS_ITS | Encounter Summary ---
[facility] Address [address] [place] [id number] Care Team Providers Care Chief Enterprise Architect Name Role Phone Jimi Mcdermott MD Primary Care Provider [phone] Encounter Details Date Type Department Care Team (Latest Contact Info) Description 06/23/2025 Travel Social History Tobacco Use Types Packs/Day [...] Description 12/20/2025 1:00 PM EST Office Visit [facility] PRIMARY CARE [address] [place] [address] [place] [address] Jimi Mcdermott MD [address] [place] [address] [place] [address] 03/13/2026 2:30 PM EDT Office Visit [facility] GYNECOLOGY [address] [phone] Jody Ricci MD [address] [address] 06/07/2026 11:00 AM EDT Office Visit [facility] PRIMARY [facility]ARE [address] [place] [address] Jimi Mcdermott MD [address] [place] [address] 06/22/2026 1:45 PM EDT Office Visit [facility] HEMATOLOGY & ONCOLOGY [address] [facility] [address] [place] [address] Mee Banks MD [address] [facility] [address] [place] [address] documented as of this encounter Visit Diagnoses Not on filedocumented in this encounter Care Teams Chief Enterprise Architect Relationship Specialty Start Date End Date Jimi Mcdermott MD [address] [place] [address] PCP - General Internal Medicine 08/22/16 documented as of this encounter
--- OUTSIDE RECORDS SUMMARY | 2025-08-02 09:42 | XMS_ITS | Encounter Summary ---
[facility] Address [address] [place] [address] Care Team Providers Care X Ray Inspector Name Role Phone Jimi Mcdermott MD Primary Care Provider [phone] Encounter Details Date Type Department Care Team ( Contact Info) Description 06/08/2025 Results Follow-Up [facility] PRIMARY CARE [address] [place] [address] [place] [address] Jimi Mcdermott MD [address] [place] [address] [place] [address] Social History Tobacco Use Types Packs/Day Years [...] * Telephone Encounter - Brianna Ash - 06/09/2025 11:29 AM EDT I have spoke with her regarding her urine results. She states that she isn't having any symptoms atthis time. 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 TF documented in this encounter Plan of Treatment Upcoming Encounters Date Type Department Care Team (Late st Contact Info) Description 12/20/2025 1:00 PM EST Office Visit [facility] PRIMARY [facility]ARE [address] [place] [address] Jimi Mcdermott MD [address] [place] [address] 03/13/2026 2:30 PM EDT Office Visit [facility] GYNECOLOGY [address] [facility] 101 [place] [phone] Jody Ricci MD [address] [facility] [address] [place] [address] 06/07/2026 11:00 AM EDT Office Visit [facility] PRIMARY CARE [address] [place] [address] [place] [address] Jimi Mcdermott MD [address] [place] [address] 06/22/2026 1:45 PM EDT Office Visit [facility] HEMATOLOGY & ONCOLOGY [address] [facility] [address] [place] [address] Mee Banks MD 1700 [facility] [address] [place] [address] documented as of this encounter Visit Diagnoses Not on filedocumented in this encounter Care Teams X Ray Inspector Relationship Specialty Start Date End Date Jimi Mcdermott MD [address] [place] [address] [place] [address] PCP - General Internal Medicine 08/22/16 documented as of this encounter
--- OUTSIDE RECORDS SUMMARY | 2025-08-02 09:42 | XMS_ITS | Clinical Summary ---
Author Organization [facility] Address [address] [place] [address] Care Team Providers Care Automated Cutting Machine Operator Name Role Phone Jimi Mcdermott MD Primary Care Provider [phone] Allergies Active Allergy Reactions Criticality Noted Date Comments Acetaminophen Mental Status Change 08/27/2022 Cephalosporins Rash Low 08/22/2016 Meperidine Itching Low 08/22/2016 Sulfa Antibiotics Rash Low 08/22/2016 Tetracyclines & Related Rash Low 08/22/2016 Medications Blood Glucose Monitoring Suppl (ACCU-CHEK KERRY PLUS) w/Device kit 8 Active Multiple Vitamins-Mineral s (MULTIVITAMIN ADULTS 50+ PO) Take 1 tablet by mouth Daily. Active Calcium Carbonate-Vitami n D3 600-400 MG-UNIT tablet Take 1 tablet by mouth Daily. Active aspirin 81 MG EC tablet Take 1 tablet by mouth Daily. Active Probiotic Product (PROBIOTIC DAILY PO) Take by mouth. Activ e metoprolol succinate XL (TOPROL-XL) 25 MG 24 hr tablet TAKE 1 TABLET BY MOUTH IN THE MORNING 90 tablet 2 Active atorvastatin (LIPITOR) 40 MG tablet Take 1 tablet by mouth every night at bedtime. 2 Active spironolactone (ALDACTONE) 25 MG tablet Take 1 tablet by mouth Daily. 2 Active Accu-Chek Softclix Lancets lancets Use to check blood sugar levels. E11.9 100 each 1 3 Active losartan (COZAAR) 50 MG tablet Take 1 tablet by mouth Daily. 3 Active predniSONE (DELTASONE) 5 MG tablet Take 1 tablet by mouth Daily. 90 tablet 3 4 Active nitroglycerin (NITROSTAT) 0.4 MG SL tabletIndication s:Coronary artery disease involving [place] coronary artery of [place] heart without angina pectoris DISSOLVE ONE TABLET UNDER THE TONGUE EVERY 5 MINUTES NEEDED FOR CHEST PAIN. DO NOT EXCEED A TOTAL OF 3 DOSES IN 15 MINUTES 25 tablet 1 4 Active fluticasone (Flonase) 50 MCG/ACT nasal sprayIndications :Seasonal allergic rhinitis due to pollen 2 sprays into the nostril(s) as directed by provider Daily. 16 mL 5 4 Active lansoprazole (PREVACID) 30 MG capsuleIndicatio ns:Gastroesophag eal reflux disease without esophagitis Take 1 capsule by mouth once daily 90 capsule 2 5 Active metFORMIN (GLUCOPHAGE) 500 MG tablet TAKE 1 TABLET BY MOUTH TWICE DAILY WITH MEALS 60 tablet 3 5 Active montelukast (Singulair) 10 MG tabletIndication s:Seasonal allergic rhinitis due to pollen Take 1 tablet by mouth Every Night. For prevention of allergies 90 tablet 3 5 Active Accu-Chek Kerry Plus test strip Use to check blood sugar levels. E11.9 Once daily 50 each 3 5 Active Active Problems Problem Noted Date Diagnosed Date Dysarthria 06/29/2025 Assessment & Plan (06/29/2025 1:29 PM EDT): Pattern of expressive dysarthria associated with preceding [...] on 06/17/2025. Patient reports remotely premenopausal did have similar pattern of headaches which were much more profound at that time. Will refer to neurology for further evaluation. Migraine with aura and witho ut status migrainosus, not intractable 06/29/2025 Assessment & Plan (06/29/2025 1:31 PM EDT): History of migraine headaches onset at age [...] for this problem in the ER at in 04/[address] angiogram of the head and neck and no acute abnormalities noted on CT of the head. Her examination today is completely normal. Refer to Dr. Hernandez of neurology. Targeted treatment not been initiated today pending neurology consultation. Stage 3a chronic kidney disease 12/06/2024 Overview (06/03/2025): Most recent creatinine 1.18 with GFR 48 in 12/2024, taking losartan 50 mg daily. Update renal function. Assessment & Plan (06/03/2025 7:25 PM EDT): {Renal Disease A/P (Optional):07011} Assessment & Plan (12/06/2024 8:06 PM EST): Minimal chronic kidney disease stage IIIa with creatinine 1.08 and GFR 54 in 06/2024. Taking losartan 25 mg daily and Aldactone 25 mg daily. Update renal function with BMP History of palpitations 12/06/2024 Assessment & Plan (06/03/2025 7:25 PM EDT): Prior history of palpitations, currently asymptomatic, taking metoprolol XL 25 mg daily. Continue cardiology follow-up. Assessment & Plan (12/06/2024 8:04 PM EST): Describes an approximate 30-minute episode of sense of palpitations without dyspnea chest pains or dizziness occurring in 10/2024. Has not had any preceding or subsequent similar episodes. Followed by Dr. Mcgee of cardiology in [place], having seen Dr. Mcgee's PA subsequent to that episode. Given lack of recurrent symptoms will simply observe for now. If any recurrence will then undergo Holter monitor as the next likely step. Of note had a normal TSH in 06/2024 but we will repeat thyroid function testing today to ensure still euthyroid Chronic left-sided low back pain without sciatic a 12/06/2024 Assessment & Plan (12/06/2024 8:06 PM EST): Relates chronic intermittent left lumbago with suspected left-sided sciatica off and on for the last year. She does have some palpable left SI pain and also some palpable left greater trochanteric pain which would suggest there may be also component of trochanteric bursitis. Symptomatic treatment for now being pursued with Tylenol or equivalent Chronic right shoulder pain 12/06/2024 Assessment & Plan (12/06/2024 8:07 PM EST): Mild right shoulder pain with equivocal Neer sign and external Colon sign. She also has some AC tenderness. Multifactorial likely in etiology. Conservative monitoring being pursued at this time, utilizing Tylenol or equivalent. Advised if becomes more problematic Periscapular pain of right shoulder 12/06/2024 Assessment & Plan (12/06/2024 8:08 PM EST): Clinical picture most consistent with periscapular muscular pain. Recommended massage, muscle rub cream, and stretching. Advise if not improving Left hip pain 12/06/2024 Assessment & Plan (12/06/2024 8:07 PM EST): Does have left lateral trochanteric tenderness suggesting at least a portion of her left lower extremity discomfort is related to her trochanteric bursitis, though she may also have an underlying left lower extremity radiculopathy/sciatica. Utilizing right now Tylenol or equivalent. If becomes more problematic within reassess Encounter for general adult medical examination with abnormal findings 06/01/2024 Assessment & Plan (06/03/2025 7:25 PM EDT): Referral female presents for Medicare wellness visit and complete physical with specific health issues being addressed as detailed below, health maintenance includes colonoscopy from 05/2021, 5-year follow-up recommended, DEXA scan from 06/2024 normal, mammogram normal with repeat schedule, aging out of Pap smear testing, advised to update RSV vaccine through pharmacy, keep current with COVID-19 and flu vaccine guidelines, EKG today deferred as obtained by referral specialist Dr. Mcgee in 04/2025 and reported stable, updating screening labs. Tentative follow-up in 6 months for review given her diabetes and chronic kidney disease, and as needed in the interim Orders: TSH; Future T4, Free; Future Comprehensive Metabolic Panel; Future CBC & Differential; Future Lipid Panel; Future Vitamin D,25-Hydroxy; Future UA / M With / Rflx Culture([facility] ONLY) - Urine, Clean Catch; Future POC Glycosylated Hemoglobin (Hb A1C) POC Glucose, Blood POC Albumin/Creatinine Ratio Urine Medicare annual wellness visit, subsequent 06/01 Assessment & Plan (06/03/2025 7:25 PM EDT): Encounter for screening mamm ogram for malignant neoplasm of breast 06/01/2024 Assessment & Plan (06/01/2024 12:48 PM EDT): Last mammogram 08/26/2023 as arranged by her cover stitch machine operator. She already has another mammogram scheduled for 07/01/2024. Screening for thyroid disorder 06/01/2024 Postmenopausal 06/01/2024 Assessment & Plan (06/01/2024 12:48 PM EDT): No significant vasomotor symptoms. Scheduled for DEXA scan as arranged by her cover stitch machine operator on 07/01/2024. Acute left-sided low back pain with left-sided s ciatica 06/01/2024 Assessment & Plan (06/01/2024 12:48 PM EDT): Acute left-sided lumbago with suspected left-sided sciatica. Not significantly problematic. Use Tylenol or equivalent. Atypical chest pain 06/01/2024 Assessment & Plan (06/01/2024 12:48 PM EDT): Several episodes of atypical chest pain over the last month, most recently 7 days ago, described as several hours of a vague heaviness in her chest with no other associated symptoms. Does have a history of non-STEMI with [facility] in 08/2022 unremarkable, having had suspicion of endothelial dysfunction as the cause of the non-STEMI, taking Plavix aspirin Lipitor metoprolol and Aldactone. Followed by the office Dr. Mcgee of cardiology, last visit in 04/2024 with tentative follow-up in 10/2024. Our office will contact Dr. Mcgee's office and arrange for a more prompt nonemergent follow-up. If patient has any significant sustained chest pain develop in the interim, she is advised to take her sublingual nitro and proceed to an ER immediately. Esophageal dysphagia 06/01/2024 Assessment & Plan (06/01/2024 12:48 PM EDT): Patient having some episodes of dysphagia intermittently more in the oropharyngeal phase. Has had some associated lightheadedness when this occurs. Most recent EGD 2015 revealing esophageal dysmotility and spasm. She continues use of as needed Prevacid. Seen by Dr. Scott, with patient to contact his office for more details given he apparently is no longer practicing locally. Dizziness 06/01/2024 Assessment & Plan (06/01/2024 12:48 PM EDT): Describes periodic lightheadedness when having difficulty swallowing food liquid or pills in the esophageal phase. Previous history of a related syncopal episode. Does see Dr. Scott of GI with previous diagnosis of esophageal dysmotility as detailed above. The dizziness is likely more vasovagal episode related to her dysphagia. Patient to follow-up with Dr. Scott. Seasonal allergic rhinitis due to pollen 024 Assessment & Plan (06/03/2025 7:25 PM EDT): Ongoing symptomatic seasonal allergies typically spring through fall despite taking Flonase and Benadryl nightly. Advised to start taking once daily second- generation antihistamine such as Claritin or Zyrtec, and will add Singulair 10 mg nightly prophylaxis to be utilized during the entire allergy season. Orders: montelukast (Singulair) 10 MG tablet; Take 1 tablet by mouth Every Night. For prevention of allergies Assessment & Plan (06/01/2024 12:48 PM EDT): Mild seasonal symptoms generally managed by Flonase, rarely using OTC Zyrtec or Claritin. History of syncope 11/12/2023 Assessment & Plan (06/01/2024 12:48 PM EDT): Prior syncopal episode described the patient as having occurred in similar context to having difficulty with swallowing. Likely vasovagal episode. Non-STEMI (non-ST elevated myocardial infarction ) 11/11/2023 Assessment & Plan (06/03/2025 7:25 PM EDT): History of non-STEMI in 08/2022 with subsequent LHC revealing normal coronary arteries, suspected endothelial dysfunction as etiology. Taking aspirin, metoprolol, atorvastatin, and spironolactone, Plavix recently discontinued. No current cardiopulmonary complaint. Followed by the office with Dr. Mcgee of cardiology in [place], most recent appointment in 04/2025, EKG at that time reported stable with a chronic T wave abnormality, conservative follow-up being pursued. Continue current regimen. Assessment & Plan (06/01/2024 12:48 PM EDT): History of non-STEMI in 08/2022 with subsequent LHC revealing normal coronary arteries, etiology suspected endothelial dysfunction. Continue risk factor modification. Endothelial dysfunction of coronary artery 11/11 Assessment & Plan (06/03/2025 7:25 PM EDT): LHC in 08/2022 revealing normal coronary arteries, non-STEMI felt most likely to be secondary to endothelial dysfunction. Assessment & Plan (06/01/2024 12:48 PM EDT): LHC in 08/2022 revealing normal coronary arteries, non-STEMI felt likely secondary to endothelial dysfunction. DIANDRA on CPAP 07/14/2023 Assessment & Plan (06/03/2025 7:25 PM EDT): Continues compliance with CPAP machine followed by Dr. Hernandez in [place] Assessment & Plan (06/01/2024 12:48 PM EDT): Compliant with CPAP machine followed by Dr. Hernandez in [place]. Osteopenia of left hip 01/13/2023 Subclinical hypothyroidism 01/13/2023 Assessment & Plan (06/03/2025 7:25 PM EDT): Not really on thyroid replacement. Update thyroid function testing. Orders: TSH; Future T4, Free; Future Mild obesity 01/13/2023 Assessment & Plan (06/03/2025 7:25 PM EDT): Patient is very physically active and pursues a very healthy diet rich in fruits and vegetables. Continue current healthy lifestyle Assessment & Plan (06/01/2024 12:48 PM EDT): 2 pound weight loss in the last 6 months. Patient continues to pursue healthy lifestyle efforts with diet and exercise. Macrocytosis without anemia 01/13/2023 Assessment & Plan (06/03/2025 7:25 PM EDT): Also recent hemoglobin 13.7 with MCV 99 in 12/2024, having been reduced with previous value 102. History of normal B12 and folic acid, needs to be repeated. Had been discussion with Dr. Banks of hematology/oncology regarding pursuing bone marrow biopsy, with conservative observation being pursued. Follows up with Dr. Banks on 06/23/2025 Orders: CBC & Differential; Future Vitamin B12; Future Folate; Future Assessment & Plan (06/01/2024 12:48 PM EDT): Followed by Dr. Banks of hematology, no associated anemia, having had previous normal B12 and folic acid levels with no history of alcohol abuse. Discussion had been entertained regarding pursuing a bone marrow biopsy but decision was to pursue conservative monitoring for the time being. Will repeat up related testing and patient is to follow-up with Dr. Banks next month. Coronary artery disease invo lving [place] coronary artery of [place] heart without angina pectoris 10/11/2022 Assessment & Plan (06/03/2025 7:25 PM EDT): History of non-STEMI in 08/2022 with subsequent LHC revealing normal coronary arteries, suspected endothelial dysfunction as etiology. Taking aspirin, metoprolol, atorvastatin, and spironolactone, Plavix recently discontinued. No current cardiopulmonary complaint. Followed by the office with Dr. Mcgee of cardiology in [place], most recent appointment in 04/2025, EKG at that time reported stable with a chronic T wave abnormality, conservative follow-up being pursued. Continue current regimen. Assessment & Plan (06/01/2024 12:48 PM EDT): History of non-STEMI in 08/2022 with subsequent LHC revealing no signal abnormality, suspected endothelial dysfunction as etiology. Taking aspirin, Plavix, metoprolol, atorvastatin, and spironolactone. Is having some atypical chest pain off-and-on for the last month or so, most recently a week ago. Followed by the office with Dr. Mcgee of cardiology in [place], next appointment tentatively to be pursued in 10/2024, but we will contact office and arrange for follow-up visit more promptly but not emergently. Patient understands that she were to have any acceleration of this chest discomfort that she is to take her nitroglycerin and proceed to an ER immediately. Very clinically stable at time of discharge. Onychomycosis of nail of digit of hand 2 Vitamin D deficiency Assessment & Plan (06/03/2025 7:25 PM EDT): Taking Vitamin D supplementation with her calcium. Update level. Orders: Vitamin D,25-Hydroxy; Future Assessment & Plan (06/01/2024 12:48 PM EDT): Taking vitamin D supplement and her calcium tablet. Check level. Menopause Hypertension Assessment & Plan (06/29/2025 1:25 PM EDT): Maintaining satisfactory blood pressure control on losartan 50 mg daily, metoprolol XL 25 mg daily and Aldactone 25 mg daily. Continue current regimen with monitoring. Assessment & Plan (06/03/2025 7:25 PM EDT): Maintaining good hypertensive control acutely as well as by history chronically taking losartan 50 mg daily, metoprolol XL 25 mg daily, and Aldactone 25 mg daily. Continue current regimen with monitoring. Orders: Comprehensive Metabolic Panel; Future UA / M With / Rflx Culture([facility] ONLY) - Urine, Clean Catch; Future Assessment & Plan (12/06/2024 8:02 PM EST): Continues to maintain very satisfactory blood pressure control acutely as well as chronically taking losartan 25 mg daily, metoprolol XL 25 mg daily and spironolactone 25 mg daily. Continue current regimen with monitoring. Assessment & Plan (06/01/2024 12:48 PM EDT): Very satisfactory blood pressure control acutely as well as chronically taking losartan 25 mg daily, metoprolol XL 25 mg daily and spironolactone 25 mg daily. Continue current regimen with monitoring. Hyperlipidemia Assessment & Plan (06/03/2025 7:25 PM EDT): Prescribed atorvastatin 40 mg daily. Update lipid profile Orders: Lipid Panel; Future Assessment & Plan (12/06/2024 8:03 PM EST): Continues atorvastatin 40 mg nightly. Most recent lipid profile satisfactory in 05/22/2024. Assessment & Plan (06/01/2024 12:48 PM EDT): Taking atorvastatin 40 mg nightly. Update lipid profile. Gastroesophageal reflux disease Assessment & Plan (06/01/2024 12:48 PM EDT): Periodic GERD symptoms taking Prevacid as needed. History of EGD in 11-18 with note of esophageal dysmotility and spasm. Fibrocystic breast changes, bilateral Enlarged thyroid Diabetes mellitus Overview (06/29/2025): Hemoglobin A1c 6.4% in 05/2024, 6.4% in 12/2024, 6.3% in 06/2025 Creatinine 1.2 and GFR 47 in 06/2025 Assessment & Plan (06/29/2025 1:32 PM EDT): Maintains excellent glycemic control taking metformin XL 500 mg twice daily as monotherapy. UACR negative in 06/2025, most recent creatinine 1.2 and GFR 47 in 06/2025. On losartan and Aldactone. Repeat hemoglobin A1c in 6 months Assessment & Plan (06/03/2025 7:25 PM EDT): Excellent glycemic control today with hemoglobin A1c 6.3% versus 6.4% in 12/2024 taking metoprolol XL 500 mg twice daily as monotherapy. UACR today negative. Continue current healthy lifestyle with diet and exercise. Orders: POC Glycosylated Hemoglobin (Hb A1C) POC Glucose, Blood POC Albumin/Creatinine Ratio Urine Assessment & Plan (12/06/2024 8:05 PM EST): Hemoglobin A1c today stable at 6.4% versus value in 06/2024, taking metformin 500 mg twice daily. Has concomitant chronic kidney disease with most recent creatinine 1.08 and GFR 54 in 06/2024, noting she does take angiotensin receptor nhung and Aldactone. Will repeat BMP, making further recommendations regarding management subsequently. Assessment & Plan (06/01/2024 12:48 PM EDT): Hemoglobin A1c today excellent at 6.4% with previous eye 6.2% in 11/2023, taking metformin 500 mg twice daily. Does have very minimal chronic kidney disease stage III with a creatinine 1.0 but GFR 55 in 11/2023. Taking losartan. Continue pursuing healthy lifestyle. Repeat hemoglobin A1c in 6 months. Autoimmune hepatitis Assessment & Plan (06/03/2025 7:25 PM EDT): Chronically is followed by Dr. Greyronically followed by Dr. Chris Scott of gastroenterology, recent recent LFTs normal, taking prednisone 5 mg daily prophylaxis. Continue current regimen.. Assessment & Plan (06/01/2024 12:48 PM EDT): Chronically followed by Dr. Chris Scott of gastroenterology, recent recent LFTs normal, taking prednisone [address] Scott recently stopped practicing in his [facility] office, undetermined whether or not he is taking a temporary leave of absence or intends to practice elsewhere. Patient will contact his prior office to get more information. Certainly if she needs a referral to a new qa intern, we can arrange this accordingly. Resolved Problems Problem Noted Date Diagnosed Date Resolved Date Diabetic polyneuropathy asso ciated with type 2 diabetes mellitus 01/13/2023 06/29/2025 History of VA (myocardial infarction) 10/11/2022 11/12/2023 Encounters Date Type Department Care Team Description 07/25/2025 External PBM[facility] Data [facility] [address] [phone] Pharmacy, Payor Data 06/29/2025 12:00 PM EDT Office Visit [facility] [address] [place] [address] [place] [phone] Jimi Mcdermott MD Migraine with aura and without status migrainosus, not intractable (Primary Dx); Dysarthria; Type 2 diabetes mellitus with stage 3a chronic kidney disease, without long-term current use of insulin; Primary hypertension 06/29/2025 Travel 06/29/2025 Refill [facility] [address] [place] [address] [place] [phone] Jimi Mcdermott MD 06/24/2025 Telephone [facility] [address] [place] [address] [place] [phone] Jimi Mcdermott MD 06/23/2025 2:30 PM EDT Office Visit [facility] [address] [phone] Mee Banks MD Macrocytosis without anemia (Primary Dx); Autoimmune hepatitis 06/23/2025 Travel 06/08/2025 Results Follow-Up [address] [place] [phone] Jimi Mcdermott MD 06/03/2025 1:00 PM EDT Office Visit [address] [place] [phone] Jimi Mcdermott MD Medicare annual wellness visit, subsequent (Primary Dx); Encounter for general adult medical examination with abnormal findings; Coronary artery disease involving [place] coronary artery of [place] heart without angina pectoris; Non-STEMI (non-ST elevated [...] rhinitis due to pollen; COVID-19 vaccine administered 06/03/2025 Travel 05/25/2025 External [facility] Data [facility] [address] [facility] [address] [place] [phone] Pharmacy, Payor Data from Last 3 Months Immunizations Immunization Administration Dates Next Due Arexvy (RSV, Adults 60+ yrs) 09/19/2023,09/19/20 COVID-19 (MODERNA) 1st,2nd,3 rd Dose Monovalent 02/02/2021,01/02/2021 COVID-19 (MODERNA) BIVALENT 12+YRS 09/03/2022 COVID-19 (MODERNA) Monovalen t Original Booster 04/22/2022,09/10/2021 COVID-19 (PFIZER) 12YRS+ (COMIRNATY) 06/03/2025 Fluzone High-Dose 65+YRS 08/09/2024,10/0 11/2019,08/28/2019,08/11,08/28/2017 Fluzone High-Dose 65+yrs 07/21/2023,07/12/2022,1 Hep B, Unspecified 11/19/1995 Influenza, Unspecified 08/09/2024 Pneumococcal Conjugate 13-Va lent (PCV13) 08/29/2017 Pneumococcal Polysaccharide (PPSV23) 08/10/2016 Shingrix 12/07/2019,08/28/2019 Tdap 08/27/2021 Family History Medical History Relation Name Comments Coronary artery disease Father Heart attack Father Dementia Maternal Aunt Dementia Maternal Grandfather Stroke Maternal Grandfather Pernicious anemia Maternal Uncle Hypertension Mother Diabetes Sister 1 Diabetes Sister 2 Relation Name Status Comments Father Maternal Aunt Maternal Grandfather Maternal Uncle Mother Sister 1 Sister 2 Social History Tobacco Use Types Packs/Day Years [...] on file Sexual Orientation Not on file Last Filed Vital Signs Vital Sign Reading Time Taken Comments Blood Pressure 129/85 06/29/2025 12:10 PM EDT Pulse 68 06/29/2025 12:10 PM EDT Temperature 36.6 C (97.9 F) 06/29/2025 12:10 PM EDT Respiratory Rate 20 06/19/2023 2:13 PM EDT Oxygen Saturation 97% 06/29/2025 12:10 PM EDT Inhaled Oxygen Concentration - - Weight 79 kg (174 lb 3.2 oz) 06/29/2025 12:10 PM EDT Height 160 cm (5' 3 ) 06/29/2025 12:10 PM EDT Body Mass Index 30.86 06/29/2025 12:10 PM EDT Plan of Treatment Upcoming Encounters Date Type Department Care Team (Late st Contact Info) Description 12/20/2025 1:00 PM EST Office Visit [facility] [address] [place] [address] [place] [phone] Jimi Mcdermott MD [address] [place] [address] [place] [id number] 03/13/2026 2:30 PM EDT Office Visit [facility] [address] [phone] Jody Ricci MD [address] [address] 06/07/2026 11:00 AM EDT Office Visit [facility] [address] [place] [address] [place] [phone] Jimi Mcdermott MD [address] [place] [address] [place] [phone] 06/22/2026 1:45 PM EDT Office Visit [facility] [address] [facility] [address] [place] [address] Mee Banks MD [address] [place] [address] Health Maintenance Due Date Last Done Comments COLOGUARD 1995 COLON CANCER SCREENING 5 YEA R SIGMOIDOSCOPY 1995 [address] COLONOGRAPHY 1995 FECAL OCCULT BLOOD TEST 1995 FIT Testing (1 year) 1995 INFLUENZA VACCINE 06/03/2025 08/09/2024, , 07/21/2023, Additional history exists HEMOGLOBIN A1C 12/04/2025 06/03/2025, 01/2025, 06/01/2024, Additional history exists COLONOSCOPY 05/25/2026 05/25/2021, 05/25/2021 COLORECTAL CANCER SCREENING 05/25/2026 ANNUAL WELLNESS VISIT 06/03/2026 06/03/2025 , 06/03/2025, 06/01/2024, Additional history exists DIABETIC FOOT EXAM 06/03/2026 06/03/2025, 0 06/03/2025, 06/03/2025, Additional history exists LIPID PANEL 06/03/2026 06/03/2025, 04/04, 06/01/2024, Additional history exists URINE MICROALBUMIN-CREATININ E RATIO (uACR) 06/03/2026 06/03/2025, 04/23/2022 DIABETIC EYE EXAM 06/09/2026 06/09/2025, , 12/09/2024, Additional history exists DXA SCAN 07/01/2026 07/01/2024, 01/01, 08/27/2017 MAMMOGRAM 07/06/2027 07/06/2025, 0901/2025, 07/01/2024, Additional history exists TDAP/TD VACCINES (2 - Td or Tdap) 08/27/2031 021 Pneumococcal Vaccine 50+ Completed 08/29/2017, 1006/2016 ZOSTER VACCINE Completed 12/07/2019, 08/28/2019 HEPATITIS C SCREENING Completed 04/28/2025, 022 COVID-19 Vaccine Completed 06/03/2025, 04/2024, 08/29/2023, Additional history exists Procedures Procedure Name Priority Date/Time Associated Diagnosis Comments POC ALBUMIN/CREATININE RATIO Routine 06/03/2025 3:08 PM EDT Encounter for general adult medical examination with abnormal findings Type 2 diabetes mellitus with stage 2 chronic kidney disease, without long-term current use of insulin CBC AND DIFFERENTIAL Routine 06/03/2025 2:23 PM EDT Encounter for general adult medical examination with abnormal findings Macrocytosis without anemia ~URINE CULTURE, ROUTINE Routine 06/03/2025 2:23 PM EDT ~MICROSCOPIC EXAMINATION Routine 06/03/2025 2:23 PM EDT TSH Routine 06/03/2025 2:23 PM EDT Encounter for general adult medical examination with abnormal findings Subclinical hypothyroidism T4, FREE Routine 06/03/2025 2:23 PM EDT Encounter for general adult medical examination with abnormal findings Subclinical hypothyroidism COMPREHENSIVE METABOLIC PANEL Routine 06/03/2025 2:23 PM EDT Encounter for general adult medical examination with abnormal findings Primary hypertension LIPID PANEL Routine 06/03/2025 2:23 PM EDT Encounter for general adult medical examination with abnormal findings Mixed hyperlipidemia VITAMIN D,25-HYDROXY Routine 06/03/2025 2:23 PM EDT Encounter for general adult medical examination with abnormal findings Vitamin D deficiency UA/M W/RFLX CULTURE ([facility] ONLY) Routine 06/03/2025 2:23 PM EDT Encounter for general adult medical examination with abnormal findings Primary hypertension VITAMIN B12 Routine 06/03/2025 2:23 PM EDT Macrocytosis without anemia FOLATE Routine 06/03/2025 2:23 PM EDT Macrocytosis without anemia POCT GLUCOSE, BLD (NON STRIP) Routine 06/03/2025 [...] disease, without long-term current use of insulin SCANNED - EYE EXAM 12/09/2024 SCANNED - MAMMO 07/01/2024 HEPATITIS C ANTIBODY Routine 10/11/2022 12:19 PM EST Need for hepatitis C screening test DEXA BONE DENSITY AXIAL Routine 01/10/2022 10:45 AM EST Osteopenia, senile Other specified disorders of bone density and structure, other site from Last 3 Months or Most Recently Relevant to Health Maintenance Results * POC Albumin/Creatinine Ratio Urine (06/03/2025 [...] 2:23 PM EDT 06/03/2025 Comment:Urine Release to [facility] Scot [facility] (AMBULATORY) - 06/08/2025 5:07 PM EDT Performed at: - [address] [id number] [email or web address] Consultant: Srinivasa Sosa PhD, Phone: [phone] Jimi Mcdermott MD URINE ORDERABLES Final Result [facility] (AMBULATORY) [address] [place] [address], [facility] [address] [place] [address], * (ABNORMAL) UA / M With / Rflx Culture([facility] ONLY) - Urine, Clean Catch (06/03/2025 2:23 PM EDT) Specific [place], UA 1.021 1.005 - 1.030 [facility] [...] 2:23 PM EDT 06/03/2025 Comment:Urine Release to [facility] Clerk [facility] (AMBULATORY) - 06/08/2025 5:07 PM EDT Performed at: [address] [place] [id number] Consultant: Srinivasa Sosa PhD, Phone: [phone] Jimi Mcdermott MD URINE ORDERABLES Final Result [facility] (AMBULATORY) [address] [place] [address], [facility] [address] [place] [address], * (ABNORMAL) Microscopic Examination - (06/03/2025 2:23 [...] 2:23 PM EDT 06/03/2025 Comment:Urine Release to [facility] (AMBULATORY) - 06/08/2025 5:07 PM EDT Performed at: - [facility] [address] [place] [id number] J2Ee Consultant: Srinivasa Sosa PhD, Phone: [phone] us Jimi Mcdermott MD URINE ORDERABLES Final Result Performing Organization Address [facility]/ZIP Co de Phone Number [facility] (AMBULATORY) [address] [place] [address], [facility] [address] [place] [address], * Vitamin D,25-Hydroxy (06/03/2025 2:23 PM EDT) Pathologist [facility] 25 Hydroxy, Vitamin D 68.5 30.0 - 100.0 ng/mL [facility] Comment: Vitamin D deficiency has been defined by the [place] of Medicine and an Endocrine Society practice guideline as a level of serum 25-OH vitamin D less than 20 ng/mL (1,2). The Endocrine Society went on to further define vitamin D insufficiency as a level between 21 and 29 ng/mL (2). 1. IOM ([place] of Medicine). 2010. Dietary reference intakes for calcium and D. [place]: The National Academies Press. 2. Joe MF, Sae NC, Gretchen VILLEGAS, et al. Evaluation, treatment, and prevention of vitamin D deficiency: an Endocrine Society clinical practice guideline. JCEM. 2010; 96(7):1911-30. Blood Structure of left upper limb / Unknown 06/03/2025 2:23 PM EDT 06/03/2025 Comment:Blood Release to pat shae Ellison [facility] (AMBULATORY) - 06/04/2025 7:06 AM EDT Performed at: - [facility] [address] [place] [id number] J2Ee Consultant: Srinivasa Sosa PhD, Phone: [phone] us Jimi Mcdermott MD LAB BLOOD ORDERABLES Final Res ult Performing Organization Address City/[facility]/ZIP Co de Phone Number [facility] (AMBULATORY) [address] [place] [address], [facility] [address] [place] [address], * (ABNORMAL) CBC & Differential (06/03/2025 2:23 PM EDT) WBC 5.5 3.4 - 10.8 x10E3/uL [facility] [...] EDT 06/03/2025 Comment:Blood Release to carlos Ellison [facility] ([facility]) - 06/04/2025 7:06 AM EDT Performed at: [facility] [address] [place], [place] [id number] J2Ee Consultant: Srinivasa Sosa PhD, Phone: [phone] us Jmii Mcdermott MD LAB BLOOD ORDERABLES Final Res ult Performing Organization Address [facility] Co de Phone Number [facility] (AMBULATORY) [address] [place] [address], [place] [phone] [facility] [address] [place] [address], [place] [phone] * TSH (06/03/2025 2:23 PM EDT) TSH 2.150 0.450 - 4.500 uIU/mL [facility] Blood Structure of left upper limb / Unknown 06/03/2025 2:23 PM EDT 06/03/2025 Comment:Blood Release to [facility] (AMBULATORY) - 06/04/2025 7:06 AM EDT Performed at: [address] [id number] J2Ee Consultant: Srinivasa Sosa PhD, Phone: [phone] us Jimi Mcdermott MD LAB BLOOD ORDERABLES Final Res ult Performing Organization Address [facility] Co de Phone Number [facility] (AMBULATORY) [address] [place] [address], [place] [phone] [facility] [address] [place] [address], [place] [phone] * T4, Free (06/03/2025 2:23 PM EDT) Free T4 1.11 0.82 - 1.77 ng/dL [facility] Blood Structure of left upper limb / Unknown 06/03/2025 2:23 PM EDT 06/03/2025 Comment:Blood Release to [facility] (AMBULATORY) - 06/04/2025 7:06 AM EDT Performed at: [address] [id number] J2Ee Consultant: Srinivasa Sosa PhD, Phone: [phone] us Jimi Mcdermott MD LAB BLOOD ORDERABLES Final Res ult Performing Organization Address [facility] Co de Phone Number [facility] ([facility] [address] [place] [address], [place] [phone] [facility] [address] [place] [address], [place] [phone] * Folate (06/03/2025 2:23 PM EDT) Folate >20.0 >3.0 ng/mL [facility] Comment: A serum folate concentration of less than 3.1 ng/mL is considered to represent clinical deficiency. Blood Structure of left upper limb / Unknown 06/03/2025 2:23 PM EDT 06/03/2025 Comment:Blood Release to [facility] ([facility]) - 06/04/2025 7:06 AM EDT Performed at: - [address] [id number] J2Ee Consultant: Srinivasa Sosa PhD, Phone: [phone] us Jimi Mcdermott MD LAB BLOOD ORDERABLES Final Res ult Performing Organization Address [facility] Co de Phone Number [facility] ([facility] [address] [place] [address], [place] [phone] [facility] [address] [place] [address], [place] [phone] * Vitamin B12 (06/03/2025 2:23 PM EDT) Vitamin B-12 920 232 - 1,245 pg/mL [facility] Blood Structure of left upper limb / Unknown 06/03/2025 2:23 PM EDT 06/03/2025 Comment:Blood Release to [facility] ([facility]) - 06/04/2025 7:06 AM EDT Performed at: - [address] [id number] J2Ee Consultant: Srinivasa Sosa PhD, Phone: [phone] us Jimi Mcdermott MD LAB BLOOD ORDERABLES Final Res ult Performing Organization Address [facility]/ZIP Co de Phone Number [facility] [address] [place] [address], [place] [phone] [facility] [address] [place] [address], [place] [phone] * (ABNORMAL) Lipid Panel (06/03/2025 2:23 PM EDT) Total Cholesterol 128 100 - 199 mg/dL [facility] Triglycerides 216(H) 0 - 149 mg/dL [facility] HDL Cholesterol 43 >39 mg/dL [facility] VLDL Cholesterol Nirav 35 5 - 40 mg/dL [facility] LDL Chol Calc (NIH) 50 0 - 99 mg/dL [facility] Blood Structure of left upper limb / Unknown 06/03/2025 2:23 PM EDT 06/03/2025 Comment:Blood Release to carlos Ellison [facility] (AMBULATORY) - 06/04/2025 7:06 AM EDT Performed at: - [facility] [id number] J2Ee Consultant: Srinivasa Sosa PhD, Phone: [phone] us Jimi Mcdermott MD LAB BLOOD ORDERABLES Final Res ult Performing Organization Address City/[facility]/ZIP Co de Phone Number [facility] (AMBULATORY) [address] [place] [address], [place] [phone] [facility] [address] [place] [address], [place] [phone] * (ABNORMAL) Comprehensive Metabolic Panel (06/03/2025 2:23 [...] 2:23 PM EDT 06/03/2025 Comment:Blood Release to [facility] (AMBULATORY) - 06/04/2025 7:06 AM EDT Performed at: [address] [place] [id number] J2Ee Consultant: Srinivasa Sosa PhD, Phone: [phone] us Jimi Mcdermott MD LAB BLOOD ORDERABLES Final Res ult [facility] (AMBULATORY) [address] [place] [address], [facility] [address] [place] [address], * (ABNORMAL) POC Glucose, Blood (06/03/2025 2:15 PM EDT) [facility] Signature Glucose 204(A) 70 - 130 mg/dL Lot Number [id number] Expiration Date 11/16/2025 Blood 06/03/2025 2:15 PM EDT us Jimi Mcdermott MD POINT OF CARE TEST ORDERABLES Final Result * (ABNORMAL) POC Glycosylated Hemoglobin (Hb A1C) (06/03/2025 2:15 PM EDT) Hemoglobin A1C 6.3(A) 4.5 - 5.7 % [facility] Lot Number [id number] [facility] Expiration Date 01/27/2027 [facility] Blood 06/03/2025 2:15 PM EDT us Jimi Mcdermott MD POINT OF CARE TEST ORDERABLES Final Result [facility]
[address] [place] [id number], * EYE EXAM SCANNED (12/09/2024) Anatomical Region Laterality Modality Other us Jimi Mcdermott MD CHART REVIEW TABS Final Res ult * MAMMO Scan (07/01/2024) Anatomical Region Laterality Modality Other us Jimi Mcdermott MD CHART REVIEW TABS Final Res ult * Hepatitis C Antibody (10/11/2022 12:19 PM EST) Hep C Virus Ab <0.1 0.0 - 0.9 s/co ratio [facility] Comment: Negative: < 0.8 Indeterminate: 0.8 - 0.9 Positive: > 0.9 HCV antibody alone does not differentiate between previous resolved infection and active infection. The CDC and current clinical guidelines recommend that a positive HCV antibody result be followed up with an HCV RNA test to support the diagnosis of acute HCV infection. [facility] offers Hepatitis C Virus (HCV) RNA, Diagnosis, RAFAL (836568) and Hepatitis C Virus (HCV) Antibody with reflex to Quantitative Real-time PCR (284007). Blood Structure of left upper limb / Unknown 10/11/2022 12:19 PM EST 10/11/2022 Comment:Blood Release to pat i Narrative [facility] ([facility]ORY) - 10/12/2022 8:07 AM EST Performed at: - [facility] [address] [facility], [place], [place] [id number] J2Ee Consultant: Srinivasa Sosa PhD, Phone: [phone] us Jimi Mcdermott MD LAB BLOOD ORDERABLES Final Res ult [facility] [address] [place] [address], [facility] [address] [place] [address], * DEXA Bone Density Axial (01/10/2022 10:45 AM EST) Anatomical Region Laterality Modality Wrist, Hip, L-spine N/A Other 01/10/2022 3:14 PM EST Impressions 01/10/2022 4:53 PM EST Osteopenia of the left femoral neck. The ten year fracture risk assessment is calculated at extreme percent for major systemic osteoporotic fracture and 3.2% for a hip fracture. Less than 3% risk in the [place] for hip fracture and less than 20% risk of any systemic osteoporotic fracture is considered less than the threshold for where pharmacological therapy is recommended by the National Osteoporosis Foundation. All the treatment decisions require clinical judgment and consideration of individual patient factors, including patient preferences, co-morbidities, previous drug use, risk factors not captured in the FRAX model (frailty, falls, vitamin D deficiency, increased bone turnover, interval significant decline in bone density) and possible under or over estimation of fracture risk by FRAX. Approaches to reduce osteoporosis related fracture risk include optimizing calcium and vitamin D status, appropriate weight bearing exercises and fall-prevention measurements. The National Osteoporosis Foundation recommends (http://www.nof.org/hcp/practice/ifuzgali-kmp-odkboggu-guidelines/clinic ans-guide) that FDA-approved medical therapies be considered in postmenopausal women and men aged equal or greater than 50 years with : a) hip or vertebral (clinical or morphometric) fracture; b) T-score of -2.5 or less at the spine or hip; c) Ten-year fracture probability by FRAX of greater than 3% for hip fracture of greater than 20% for major osteoporotic fracture. Secondary causes of bone loss should be evaluated if clinically indicated since the etiology of low BMD cannot be determined by BMD measurement alone. FOLLOWUP: Consider repeating the study in 2-3 years to reassess the patient's status or sooner if there is some new clinical indication. INTERVAL CHANGE: There were no equivalent studies available for comparison. At this facility, the least significant change in the BMD at the left hip with 95% confidence is 0.795601 gm/cm2 at the hip and 0.146702 g/cm2 at the lumbar spine. This report was finalized on 01/10/2022 4:[address] Julio C Aguilar MD. Narrative 01/10/2022 4:53 PM EST DUAL-ENERGY X-RAY ABSORPTIOMETRY (DXA) INDICATION: Postmenopausal, screening for osteoporosis, history of glucocorticoids COMPARISON: There are no equivalent studies available for comparison PROCEDURE: A DXA scan was performed using a Hologic densitometer. The lumbar spine L1-L4 was evaluated as well as bilateral total hip. The T-score compares the patient's bone mineral density with the peak bone mass of young normal patients. According to criteria established by the World Health Organization, patients with T-scores between 1.0 and 2.5 standard deviations BELOW the mean are osteopenic (low bone mass). Patients with T-scores EQUAL TO OR GREATER than 2.5 standard deviations below the mean are osteoporotic. The Z-score compares the patient bone mineral density with age and sex matched peers. According to the International Society for Clinical Densitometry's 2007 consensus conference: In women prior to menopause and men less than age 50, Z-scores, not T-scores are preferred. A Z-score of -2.0 or lower is defined as below the expected range for age and a Z-score above -2.0 is within the expected range for age. The WHO diagnostic criteria may be applied in women in the menopausal transition. Osteoporosis cannot be diagnosed in men under age 50 on the basis of BMD alone. TECHNICAL QUALITY: The study is of good technical quality. RESULTS: Lumbar Spine: The BMD measured in the L1-L4 region is 1.329 g/cm2. The average T-score is 2.6. The Z-score is 4.7. Total Hip: The BMD measured at the left total proximal femur is 1.035 g/cm2. The T-score is 0.8. The Z-score is 2.3. Femoral Neck: The BMD measured at the left femoral neck is 0.654 g/cm2. The T-score is -1.8. The Z-score is 0.1. Total Hip: The BMD measured at the right total proximal femur is 1.101 g/cm2. The T-score is 1.3. The Z-score is 2.9. Femoral neck: The BMD measured at the right femoral neck is 0.780 g/cm2. The T score is -0.6. The Z score is 1.2. Procedure Note Jerrica Camargo PA - 01/10/2022 DUAL-ENERGY X-RAY ABSORPTIOMETRY (DXA) INDICATION: Postmenopausal, screening for osteoporosis, history of glucocorticoids COMPARISON: There are no equivalent studies available for comparison PROCEDURE: A DXA scan was performed using a Hologic densitometer. The lumbar spine L1-L4 was evaluated as well as bilateral total hip. The T-score compares the patient's bone mineral density with the peak bone mass of young normal patients. According to criteria established by the World Health Organization, patients with T-scores between 1.0 and 2.5 standard deviations BELOW the mean are osteopenic (low bone mass). Patients with T-scores EQUAL TO OR GREATER than 2.5 standard deviations below the mean are osteoporotic. The Z-score compares the patient bone mineral density with age and sex matched peers. According to the International Society for Clinical Densitometry's 2007 consensus conference: In women prior to menopause and men less than age 50, Z-scores, not T-scores are preferred. A Z-score of -2.0 or lower is defined as below the expected range for age and a Z-score above -2.0 is within the expected range for age. The WHO diagnostic criteria may be applied in women in the menopausal transition. Osteoporosis cannot be diagnosed in men under age 50 on the basis of BMD alone. TECHNICAL QUALITY: The study is of good technical quality. RESULTS: Lumbar Spine: The BMD measured in the L1-L4 region is 1.329 g/cm2. The average T-score is 2.6. The Z-score is 4.7. Total Hip: The BMD measured at the left total proximal femur is 1.035 g/cm2. The T-score is 0.8. The Z-score is 2.3. Femoral Neck: The BMD measured at the left femoral neck is 0.654 g/cm2. The T-score is -1.8. The Z-score is 0.1. Total Hip: The BMD measured at the right total proximal femur is 1.101 g/cm2. The T-score is 1.3. The Z-score is 2.9. Femoral neck: The BMD measured at the right femoral neck is 0.780 g/cm2. The T score is -0.6. The Z score is 1.2. IMPRESSION: Osteopenia of the left femoral neck. The ten year fracture risk assessment is calculated at extreme percent for major systemic osteoporotic fracture and 3.2% for a hip fracture. Less than 3% risk in the [place] for hip fracture and less than 20% risk of any systemic osteoporotic fracture is considered less than the threshold for where pharmacological therapy is recommended by the National Osteoporosis Foundation. All the treatment decisions require clinical judgment and consideration of individual patient factors, including patient preferences, co-morbidities, previous drug use, risk factors not captured in the FRAX model (frailty, falls, vitamin D deficiency, increased bone turnover, interval significant decline in bone density) and possible under or over estimation of fracture risk by FRAX. Approaches to reduce osteoporosis related fracture risk include optimizing calcium and vitamin D status, appropriate weight bearing exercises and fall-prevention measurements. The National Osteoporosis Foundation recommends (http://www.nof.org/hcp/practice/xgkkcixh-bvq-cobyrcen-guidelines/clinic ans-guide) that FDA-approved medical therapies be considered in postmenopausal women and men aged equal or greater than 50 years with : a) hip or vertebral (clinical or morphometric) fracture; b) T-score of -2.5 or less at the spine or hip; c) Ten-year fracture probability by FRAX of greater than 3% for hip fracture of greater than 20% for major osteoporotic fracture. Secondary causes of bone loss should be evaluated if clinically indicated since the etiology of low BMD cannot be determined by BMD measurement alone. FOLLOWUP: Consider repeating the study in 2-3 years to reassess the patient's status or sooner if there is some new clinical indication. INTERVAL CHANGE: There were no equivalent studies available for comparison. At this facility, the least significant change in the BMD at the left hip with 95% confidence is 0.999604 gm/cm2 at the hip and 0.703731 g/cm2 at the lumbar spine. This report was finalized on 01/10/2022 4:[address] Julio C Aguilar MD. us Rocio Gasca SYSTEM INTEGRATION ENGINEER IMG DXA ORDERABLES Radha l Result from Last 3 Months or Most Recently Relevant to Health Maintenance Insurance [facility] Medicare Advantage [employer] PPO Care Teams Automated Cutting Machine Operator Relationship Specialty Start Date End Date Jimi Mcdermott MD [address] [place] [address] [place] [address] PCP - General Internal Medicine 08/22/16
--- OUTSIDE RECORDS SUMMARY | 2025-08-02 09:43 | XMS_ITS | Encounter Summary ---
[facility] Organization [facility] Address [address] [place] [id number] Care Team Providers Care Citizen Participation Specialist Name Role Phone Jimi Mcdermott MD Primary Care Provider [phone] Encounter Details Date Type Department Care Team (Late st Contact Info) Description 06/24/2025 Telephone [facility] [address] [place] [address] Jimi Mcdermott MD [address] [place] [address] [place] [address] Social History Tobacco Use Types Packs/Day [...] * Telephone Encounter - Brianna Ash - 06/27/2025 1:35 PM EDT I have spoke with her and she has made an appt for 06/29/2025 for the refer. TF * Telephone Encounter - Brianna Ash - 06/24/2025 4:17 PM EDT She has called asking if she can get a refer to: Dr. Sylvia Hernandez with [facility]. She would like to see them due to her increased number of migraines shehas been having lately. TF documented in this encounter Plan of Treatment Upcoming Encounters Date Type Department Care Team (Late st Contact Info) Description 12/20/2025 1:00 PM EST Office Visit [facility] [address] [place] [address] [place] [address] Jimi Mcdermott MD [address] [place] [address] 03/13/2026 2:30 PM EDT Office Visit [facility] 17[address] [facility] 101 [place] [address] Jody Ricci MD 1780 [facility] 101 [place] [address] 06/07/2026 11:00 AM EDT Office Visit [address] [place] [address] Jimi Mcdermott MD [address] [place] [address] [place] [address] 06/22/2026 1:45 PM EDT Office Visit [facility]AT[facility] & ONCOLOGY [address] [facility] [address] [place] [address] Mee Banks MD 1700 [facility] 1100 [place] [address] documented as of this encounter Visit Diagnoses Not on filedocumented in this encounter Care Teams Citizen Participation Specialist Relationship Specialty Start Date End Date Jimi Mcdermott MD [address] [place] [address] [place] [address] PCP - General Internal Medicine 08/22/16 documented as of this encounter
--- OUTSIDE RECORDS SUMMARY | 2025-08-02 09:43 | XMS_ITS | Encounter Summary ---
[facility] Address [address] [place] [address] Care Team Providers Care Supervisor Statement Clerks Name Role Phone Jimi Mcdermott MD Primary Care Provider [phone] Encounter Details Date Type Department Care Team (Late st Contact Info) Description 07/25/2025 External PBMM Data [facility] SERVICES [facility] CALL CENTER [address] [place] [phone] Pharmacy, Payor Data Social History Tobacco Use Types Packs/Day Years [...] Description 12/20/2025 1:00 PM EST Office Visit [facility] [address] [place] [address] Jimi Mcdermott MD [address] [place] [address] 03/13/2026 2:30 PM EDT Office Visit [facility]YN[facility] [address] [address] Jody Ricci MD [address] [facility] 101 [place] [address] 06/07/2026 11:00 AM EDT Office Visit [facility] [address] [place] [phone] Jimi Mcdermott MD [address] [place] [address] 06/22/2026 1:45 PM EDT Office Visit [facility]EMATOLOGY & ONCOLOGY 3000 [facility] [address] [place] [address] Mee Banks MD [address] [facility] [address] [place] [address] documented as of this encounter Visit Diagnoses Not on filedocumented in this encounter Care Teams Supervisor Statement Clerks Relationship Specialty Start Date End Date Jimi Mcdermott MD [address] [place] [address] [place] [address] PCP - General Internal Medicine 08/22/16 documented as of this encounter
--- OUTSIDE RECORDS SUMMARY | 2025-08-02 09:43 | XMS_ITS | Encounter Summary ---
Author Organization [facility] Address [address] [place] [id number] Care Team Providers Care Outside Physical Damage Appraiser Name Role Phone Jimi Mcdermott MD Primary Care Provider [phone] Encounter Details Date Type Department Care Team (Latest Contact Info) Description 06/29/2025 Travel Social History Tobacco Use Types Packs/Day [...] Description 12/20/2025 1:00 PM EST Office Visit [facility] [address] [place] [address] [place] [address] Jimi Mcdermott MD [address] [place] [address] [place] [address] 03/13/2026 2:30 PM EDT Office Visit [facility] GYN[facility] [address] [phone] Jody Ricci MD [address] [address] 06/07/2026 11:00 AM EDT Office Visit [facility] [address] [place] [address] Jimi Mcdermott MD [address] [place] [address] 06/22/2026 1:45 PM EDT Office Visit [facility] HEMATOLOG[facility] & ONCOLOGY 3000 [facility] 155 [place] [address] Mee Banks MD 1703 [facility] 1100 [place] [address] documented as of this encounter Visit Diagnoses Not on filedocumented in this encounter Care Teams Outside Physical Damage Appraiser Relationship Specialty Start Date End Date Jimi Mcdermott MD [address] [place] [address] PCP - General Internal Medicine 08/22/16 documented as of this encounter
--- OUTSIDE RECORDS SUMMARY | 2025-08-02 09:43 | XMS_ITS | Clinical Summary ---
Author Organization [facility] Address [address] [place] [id number] Care Team Providers Care Vmware Consultant Name Role Phone Jimi Mcdermott MD Primary Care Provider [phone] Social History Tobacco Use Types Packs/Day Years [...] 08/17/2025 10:00 AM EDT Ovarian Cancer Screening [facility] Gynecology [address] [facility], [address]rd [place] [address] Health Maintenance Due Date Last Done Comments [facility]-Depression Screening 1950 [facility]-/Child/Adol SDOH Screenings 1950 [facility]- SDOH Screenings 1968 [facility]-Adult SDOH Screenings 1968 CT Colonography 1995 Colonoscopy 1995 FIT-DNA 1995 FIT 1995 FOBT 1995 Sigmoidoscopy 1995 [facility]-Colorectal Cancer Screening 1995 [facility]-Medicare Annual Wellness (AWV) 06/01/2025 06/01/2024, 01/13/2023 [id number] Vaccine ( season) 2025 08/29/2023, 09/03/2022, 04/22/2022, Additional history exists [facility]-Influenza Vaccine (#1) 07/04/202508/09, 07/21/2023, 07/12/2022, Additional history exists [facility]-Bone Density Scan 07/01/2026 07/01/2024 , 01/10/2022, 01/10/2022, Additional history exists [facility]-Breast Cancer Screening 07/01/202606/04, 07/01/2024, 06/26/2023, Additional history exists [facility]-DTaP,Tdap,and Td Vaccines (2 - Td or Tdap) 08/27/2031 08/27/2021 [facility]-Pneumococcal Vaccine: 50+ Years Completed 08/29/2017, 08/10/2016 [facility]-Zoster Vaccines Completed 12/07/2019, [facility]-Hepatitis C Screening Completed 10/11/2022 [facility]-RSV Vaccine: 60+ Years or Completed 09/19/2023 HPV Vaccines Aged Out No longer eligi [...] patient's age to complete this topic Insurance [facility] MEDICARE Care Teams Vmware Consultant Relationship Specialty Start Date End Date Jimi Mcdermott MD [address] [place] [address] [place] [address] PCP - General 03/04/22
[2025-08-02 11:25] LABS: Vitamin B12 842 pg/mL (239-931)
== END 2025-08-02 23:59 | disposition home or self-care (01) ==
LOC: LAB 09:25
PROVIDERS: PCP Internal Medicine; Visit Provider Specialist
DX: D75.89 Other specified diseases of blood and blood-forming organs (principal)
CPT/HCPCS: 36415; 82607

== ENCOUNTER 2025-08-16 12:32 | Outpatient (CLI) | payer MEDICARE, SELFPAY ==
--- OUTSIDE RECORDS SUMMARY | 2025-06-23 14:30 | XMS_ITS | Encounter Summary ---
[facility] Organization [facility] Address [address] [place] [address] Care Team Providers Care Legal Editor Name Role Phone Jimi Mcdermott MD Primary Care Provider [phone] Encounter Details Date Type Department Care Team (Late st Contact Info) Description 06/23/2025 2:30 PM EDT Office Visit [facility] [address] [facility] [address] [place] [address] Mee Banks MD [address] [facility] [address] [place] [address] Macrocytosis without anemia (Primary Dx); Autoimmune hepatitis [...] in this encounter Progress Notes * Mee Banks MD - 06/23/2025 2:30 PM EDT Images from the original note were not included. Hematology and Oncology [place] Office number [phone] Fax number [phone] Follow up Date: 06/23/25 Patient Name: Sahra [...] unstable angina in 08/2022, was admitted at [facility]. CBC that admission 08/21/22 showed WBC 3.5; hemoglobin 13.3; plt 229; MCV 105 Had LHC, nonobstructive CAD, medical management recommended. Interval history: Feeling well. Recently treated for Klebsiella UTI Previous to that was seen at [facility] with word finding difficulties, has had multiple [...] 920 232 - 1,245 pg/mL Final Specific [place], UA 06/03/2025 1.021 1.005 - 1.030 Final [...] D deficiency has been defined by the [place] of Medicine and an Endocrine Society practice guideline as a level of serum 25-OH vitamin D less than 20 ng/mL (1,2). The Endocrine Society went on to further define vitamin D insufficiency as a level between 21 and 29 ng/mL (2). 1. IOM ([place] of [employer]). 2010. Dietary reference intakes for [...] macrocytosis can sometimes be caused by medications, cvxf-zpo-opewqnx supplements, vitamin or mineral deficiencies, alcohol use, [...] Description 12/20/2025 1:00 PM EST Office Visit [facility] [address] [place] [address] [place] [phone] Jimi Mcdermott MD [address] [place] [address] [place] [id number] 03/13/2026 2:30 PM EDT Office Visit [facility] [address] [facility] [address] [place] [phone] Jody Ricci MD [address] [facility] [address] [place] [address] 06/07/2026 11:00 AM EDT Office Visit [facility] [address] [place] [phone] Jimi Mcdermott MD [address] [place] [address] 06/22/2026 1:45 PM EDT Office Visit [facility] ONCOL[facility] [address] [facility] [address] [place] [address] Mee Banks MD [address] [facility] [address] [place] [address] documented as of this encounter Visit Diagnoses Diagnosis Macrocytosis without anemia- Primary Other specified diseases of blood and blood-forming organs Autoimmune hepatitis documented in this encounter Care Teams Legal Editor Relationship Specialty Start Date End Date Jimi Mcdermott MD [address] [place] [address] [place] [address] PCP - General Internal Medicine 08/22/16 documented as of this encounter
--- OUTSIDE RECORDS SUMMARY | 2025-06-29 12:00 | XMS_ITS | Encounter Summary ---
Author [facility] Address [address] [place] [address] Care Team Providers Care Anthropology Instructor Name Role Phone Jimi Mcdermott MD Primary Care Provider [phone] Reason for Referral * Consultation (Routine) - Authorized - Pending Scheduling Specialty Diagnoses / Procedures Referred By Bety lennon Referred To Contact Neurology Diagnoses Migraine with aura and without status migrainosus, not intractable Dysarthria Procedures [place] OFFICE/OUTPATIENT NEW MODERATE MDM 45 MINUTES Jimi Mcdermott MD [address] [place] [address] [place] [address] Phone: tel: fax: Sylvia Hernandez MD [address] [facility] [address] [place] [address] Phone: tel: fax: Referral ID Status Reason Start Date Expiration Date Visits Requested Visits Authorized Authorized - Pending Scheduling Specialty Services Required 06/29/2025 09/28/2026 1 1 Scheduling Instructions Schedule with Dr Hernandez in [place] Reason for Visit * Reason Comments refer to Dr. Hernandez neuro Encounter Details Date Type Department Care Team (Late st Contact Info) Description 06/29/2025 12:00 PM EDT Office Visit [facility] PRIMARY CARE [address] [place] [address] [place] [phone] Jimi Mcdermott MD [address] [place] [address] [place] [id number] Migraine with aura and without status migrainosus, [...] for this problem in the ER at [facility] in 04/[address] angiogram of [...] developing again. In 04/2025 seen in the [facility] emergency room after having developed visual scotoma [...] I did review of testing obtained at [facility] on 04/28/2025. Subjective Review of Systems: Review [...] to vernon Result Value Ref Range Specific [place], UA 1.021 1.005 - 1.030 pH, UA [...] for this problem in the ER at [facility] in 04/[address] angiogram of [...] 12/30/2025) for Next scheduled follow up. At [facility], we believe that sharing information builds trust and better relationships. You are receiving this note because you recently visited [facility]. It is possible you will see health information before a provider has talked with you about it. This kind of information can be easy to misunderstand. To help you fully understand what it means for your health, we urge you to discussthis note with your provider. Jimi Mcdermott MD [facility] [place] documented in this encounter Plan of Treatment Upcoming Encounters Date Type Department Care Team (Late st Contact Info) Description 12/20/2025 1:00 PM EST Office Visit [facility] PRIMARY CARE [address] [place] [address] [place] [phone] Jimi Mcdermott MD [address] [place] [address] [place] [id number] 03/13/2026 2:30 PM EDT Office Visit [facility] GYNECOLOGY [address] [facility] [address] [place] [phone] Jody Ricci MD [address] [place] [address] 06/07/2026 11:00 AM EDT Office Visit [facility] PRIMARY CARE [address] [place] [phone] Jimi Mcdermott MD [address] [place] [id number] 06/22/2026 1:45 PM EDT Office Visit [facility] HEMATOLOGY & ONCOLOGY [address] [facility] [address] [place] [phone] Mee Banks MD [address] [place] [address] documented as of this encounter Visit Diagnoses Diagnosis Migraine with aura and without status migrainosus, not intractable- Primary Dysarthria Type 2 diabetes mellitus with stage 3a chronic kidney disease, without long-term current use of insulin Primary hypertension Unspecified essential hypertension documented in this encounter Care Teams Anthropology Instructor Relationship Specialty Start Date End Date Jimi Mcdermott MD [address] [place] [address] PCP - General Internal Medicine 08/22/16 documented as of this encounter
--- OUTSIDE RECORDS SUMMARY | 2025-07-06 13:30 | XMS_ITS | Encounter Summary ---
Author Organization [employer] ([place], [place], [place], [place]) Address [address] [place] [address] Care Team Providers Care Coding Support Specialist Name Role Phone Tyler WIGGINS Md, Chris FARMER [facility]available [facility] Primary Care Provider + Reason for Referral * Mammography (Routine) - Closed Specialty Diagnoses / Procedures Referred By Bety t Referred To Contact Radiology Diagnoses Visit for screening mammogram Procedures MM digital mammo screen with etta bilateral Jimi Mcdermott MD [address] [place] [address] [place] [address] Phone: tel: fax: [address] [place] [phone] Phone: tel: fax: Referral ID Status Reason Start Date Expiration Date Visits Re quested Visits Authorized [id number] Closed 07/06/2025 07/06/2026 1 1 Reason for Visit * Mammography (Routine) - Closed Specialty Diagnoses / Procedures Referred By Bety lennon Referred To Contact Radiology Diagnoses Visit for screening mammogram Procedures MM digital mammo screen with etta bilateral Jimi Mcdermott MD [address] [place] [address] [place] [address] Phone: tel: fax: [address] [place] [phone] Phone: tel: fax: Referral ID Status Reason Start Date Expiration Date Visits Re quested Visits Authorized [id number] Closed 07/06/2025 07/06/2026 1 1 Encounter Details Date Type Department Care Team (Late st Contact Info) Description 07/06/2025 1:30 PM EDT - 07/06/2025 11:59 PM EDT Hospital Encounter [facility] [address] [place] [address] Jody Ricci MD [address] [facility] [address] [place], [place] [id number] Visit for screening mammogram Discharge Disposition: Home or Self Care Social History Tobacco Use Types Packs/Day Years Used Date Smoking Tobacco: Never Assessed Employment Answer Date Recorded Help finding and keeping a job Not on file 0 11/14/2023 Family and Community Support Answer Zi e Recorded Help with Day to Day Activities Not on file 11/14/2023 Feeling Lonely or Isolated Not on file 11/14 Educational Attainment Answer Date Josh rded Speak language other than Taiwanese at home Not on file 11/14/2023 Want help with school or training Not on file 11/14/2023 Substance Use Answer Date Recorded Used prescription meds for non-medical reasons N ot on file 11/14/2023 Used illegal drugs past 12 months Not on file 11/14/2023 Comments No Sex and Gender Information Value Date Recorded Sex Assigned at Female 04/30/2022 5:10 PM CDT Legal Sex Female 5:10 PM CDT Gender Identity Female 04/30/2022 5:10 PM CDT Sexual Orientation Not on file documented as of this encounter Last Filed Vital Signs Vital Sign Reading Time Taken Comments Blood Pressure - - Pulse - - Temperature - - Respiratory Rate - - Oxygen Saturation - - Inhaled Oxygen Concentration - - Weight 77.1 kg (170 lb) 07/06/2025 2:06 PM EDT Height 160 cm (5' 3 ) 07/06/2025 2:06 PM EDT Body Mass Index 30.11 07/06/2025 2:06 PM EDT documented in this encounter Plan of Treatment Upcoming Encounters Date Type Department Care Team (Late st Contact Info) Description 07/12/2026 1:00 PM EDT Appointment [address] [place] [address] documented as of this encounter Procedures Procedure Name Priority Date/Time Associated Diagnosis Comments MM DIGITAL MAMMO SCREEN WITH ETTA BILATERAL Routine 07/06/2025 2:27 PM EDT Visit for screening mammogram documented in this encounter Results * MM digital mammo screen with etta bilateral (07/06/2025 2:27 PM EDT) Anatomical Region Laterality Modality Breast Bilateral Mammography 07/07/2025 4:05 PM EDT Impressions 07/07/2025 4:07 PM EDT No mammographic evidence of malignancy. BI-RADS CATEGORY: 2 , BENIGN FINDING(S). RECOMMENDED FOLLOW-UP: Routine annual screening mammography. A letter including results and recommendations was sent to the patient. Density notification was provided as well. Patient information entered into a reminder system with a target due date for the next mammogram. At our facility, a yuhaaviatam marker is positioned over a visible skin lesion and a linear marker is used to indicate a scar. A triangular marker is placed on a self reported palpable finding. Mammography does not detect approximately 10-15% of breast cancers. An annual clinical breast exam by the patient's breast care physician and regular monthly self breast exams by the patient are integral parts of breast cancer screening. A normal mammogram does not completely exclude the presence of breast cancer, especially if there is an abnormal finding on physical exam. When clinically indicated, a biopsy should not be deferred because of a normal mammogram report. : 1950 Images reviewed, interpreted, and dictated by MD Scot Rodarte 07/07/2025 4:07 PM EDT BILATERAL SCREENING DIGITAL MAMMOGRAPHY CLINICAL INDICATION: Routine screening FAMILY HISTORY: No family history.. TECHNIQUE: Bilateral CC and MLO views were obtained with 2-D and 3-D digital acquisitions. The study was read with the assistance of CAD. COMPARISON: Previous exams back to 2021. FINDINGS: No spiculated mass, calcifications or architectural distortion is seen. The breasts are heterogeneously dense, which may obscure small masses. No suspicious change identified. us Jimi Mcdermott MD IMG MAMMOGRAPHY ORDERABLES Fin al Result documented in this encounter Visit Diagnoses Diagnosis Visit for screening mammogram documented in this encounter Care Teams Coding Support Specialist Relationship Specialty Start Date End Date , Jody Nickerson MD [address] [facility] [address] [place] [address] PCP - General Obstetrics and Gynecology 07/06/25 Tyler WIGGINS Md, MD Chris [address] [facility] [address] [place] [address] Referring Physician Gastroenterology 07/01/24 documented as of this encounter
--- OUTSIDE RECORDS SUMMARY | 2025-08-16 12:35 | XMS_ITS | Encounter Summary ---
Author Organization [employer] ([place], [place], [place], [place]) Address [address] [place] [address] Care Team Providers Care C Wpf Developer Name Role Phone Tyler WIGGINS Md, Chris FARMER Unavailable [phone] Jody Ricci MD Primary Care Provider + Reason for Referral * Mammography (Routine) - Authorized Specialty Diagnoses / Procedures Referred By Contac t Referred To Contact Radiology Diagnoses Visit for screening mammogram Procedures MM digital mammo screen with andressa bilateral Jody Ricci MD [address] [facility] [address] [place] [address] Phone: tel: fax: [facility] Breast Care [address] [place] [address] Phone: tel: fax: Referral ID Status Reason Start Date Expiration Date V isits Requested Visits Authorized [id number] Authorized 07/12/2026 07/12/2027 1 1 Encounter Details Date Type Department Care Team (Late st Contact Info) Description 07/06/2025 Outside Orders [facility] [address] [facility] [address] [place] [address] Jody Ricci MD [address] [facility] [address] [place] [address] Visit for screening mammogram (Primary Dx) Social [...] Date Josh rded Speak language other than Khmer at home Not on file 11/14/2023 Want [...] Info) Description 07/12/2026 1:00 PM EDT Appointment [address] [place] [address] Scheduled Orders Name Type Priority Associated Diagnoses Orde r Schedule MM digital mammo screen with andressa bilateral Imaging Routine Visit for screening mammogram Expected: 07/12/2026, Expires: 07/12/2027 documented as of this encounter Visit Diagnoses Diagnosis Visit for screening mammogram- Primary documented in this encounter Care Teams C Wpf Developer Relationship Specialty Start Date End Date Jody Ricci MD [address] [facility] [address] [place], [place] [id number] PCP - General Obstetrics and Gynecology 07/06/25 Tyler WIGGINS Md, MD Chris [address] [facility] [address] [place] [address] Referring Physician Gastroenterology 07/01/24 documented as of this encounter
--- OUTSIDE RECORDS SUMMARY | 2025-08-16 12:35 | XMS_ITS | Clinical Summary ---
Author Organization [employer] ([place], [place], [place], [place]) Address [address] [place] [address] Care Team Providers Care Digital Forensic Examiner Name Role Phone Tyler WIGGINS Md, Chris FARMER Unavailable [phone] Jody Ricci MD Primary Care Provider + Encounters Date Type Department Care Team Description 07/06/2025 1:30 PM EDT - 07/06/2025 11:59 PM EDT Hospital Encounter [facility] [address] [facility] [address] [place] [address] Jody Ricci MD Visit for screening mammogram Discharge Disposition: Home or Self Care 07/06/2025 Travel 07/06/2025 Outside Orders [facility] [address] [facility] [address] [place] [address] Jody Ricci MD Visit for screening mammogram (Primary Dx) from Last 3 Months Social History Tobacco Use Types Packs/Day Years [...] Date Josh rded Speak language other than South African at home Not on file 11/14/2023 Want [...] PM CDT Sexual Orientation Not on file Last Filed [...] Mass Index 30.11 07/06/2025 2:06 PM EDT Plan of Treatment Upcoming Encounters Date Type Department Care Team (Late st Contact Info) Description 07/12/2026 1:00 PM EDT Appointment [address] [address] Health Maintenance Due Date Last Done Comments CT Colonography 1950 Colonoscopy 1950 Colorectal Cancer Screening 1950 FOBT/FIT 1950 Fit-DNA (Cologuard) 1950 Sigmoidoscopy 1950 Depression Screening (12+) 1962 Tobacco Cessation Counseling and Screening (12+) 1962 Hepatitis C Screening 1968 Medicare Initial AWV [id number] 11/04/2018 Falls Risk Screening 11/03/2024 Influenza Vaccine (#1) 2025 , 07/21/2023, 07/12/2022, Additional history exists Respiratory Syncytial Virus (RSV) Adult or (1 - 1-dose 75+ series) 2025 COVID-19 VACCINE (2023-2 5 season) 2025 06/03/2025, 09/03/2022, 04/22/2022, Additional history exists DXA SCAN 07/01/2026 07/01/2024 Breast Cancer Screening 07/06/2027 07/06/20, 07/01/2024, 06/26/2023, Additional history exists DTAP/TDAP/TD VACCINES (2 - T d or Tdap) 08/27/2031 08/27/2021 Pneumococcal 50+ years Completed 8, 08/29/2017, 08/10/2016 Shingles Vaccine (Zoster) Completed 12/07/2019, Procedures Procedure Name Priority Date/Time Associated Diagnosis Comments MM DIGITAL MAMMO SCREEN WITH ETTA BILATERAL Routine 07/06/2025 2:27 PM EDT Visit for screening mammogram DXA BONE DENSITY SPINE AND HIP Routine 07/01/2024 2:00 PM EDT Postmenopausal Screening for osteoporosis from Last 3 Months or Most Recently Relevant to Health Maintenance Results * MM digital mammo screen with [...] the next mammogram. At our facility, a eklutna marker is positioned over a visible skin [...] 1950 Images reviewed, interpreted, and dictated by Liliam Bertrand MD Narrative 07/07/2025 4:07 PM EDT BILATERAL SCREENING DIGITAL [...] MD IMG MAMMOGRAPHY ORDERABLES Fin al Result * DXA bone density spine and hip (07/01/2024 2:00 PM EDT) Anatomical Region Laterality Modality Bone Dual-energy X-ra y absorptiometry (DEXA) 07/01/2024 2:06 PM EDT Impressions 07/01/2024 2:15 PM EDT Normal bone mineral density of the lumbar spine. Osteopenia of the left hip. Images reviewed, interpreted, and dictated by Dr. Brandi Pak. Transcribed by Lane Rodriguez PA-C, R.T. (N), C Disha M T. Images reviewed, interpreted, and dictated [...] by Lane Rodriguez PA-C. Cynthia Pink APRN IM DXA ORDERABLES Final Resu lt from Last 3 Months or Most Recently Relevant to Health Maintenance Insurance [employer] MEDICARE PPO Care Teams Digital Forensic Examiner Relationship Specialty Start Date End Date High, Jody Nickerson MD [address] [place] [address] PCP - General Obstetrics and Gynecology 07/06/25 Tyler WIGGINS Md, MD Chris [address] [facility] [address] [place] [address] Referring Physician Gastroenterology 07/01/24
--- OUTSIDE RECORDS SUMMARY | 2025-08-16 12:35 | XMS_ITS | Encounter Summary ---
[facility] Organization [facility] Address [address] [place] [phone] Care Team Providers Care Cashier And Waiter/Waitress Name Role Phone Jimi Mcdermott MD Primary Care Provider [phone] Reason for Visit * Reason Onset Date Comments Med Refill 06/29/2025 Encounter Details Date Type Department Care Team (Late st Contact Info) Description 06/29/2025 Refill [facility] [address] [place] [address] [place] [address] Jimi Mcdermott MD [address] [place] [address] [place] [id number] Social History Tobacco Use Types Packs/Day Years [...] Description 12/20/2025 1:00 PM EST Office Visit [facility] [address] [place] [address] [place] [address] Jimi Mcdermott MD [address] [place] [address] [place] [address] 03/13/2026 2:30 PM EDT Office Visit [facility] [address] [facility] 101 [place] [address] Jody Ricci MD 1780 [facility] 101 [place] [address] 06/07/2026 11:00 AM EDT Office Visit [facility] [address] [place] [address] [place] [address] Jimi Mcdermott MD [address] [place] [address] [place] [address] 06/22/2026 1:45 PM EDT Office Visit [facility]AT[facility] ONCOLOGY [address] [facility] [address] [place] [address] Mee Banks MD 1700 [facility] 1100 [place] [address] documented as of this encounter Visit Diagnoses Not on filedocumented in this encounter Care Teams Cashier And Waiter/Waitress Relationship Specialty Start Date End Date Jimi Mcdermott MD [address] [place] [address] [place] [address] PCP - General Internal Medicine 08/22/16 documented as of this encounter
--- OUTSIDE RECORDS SUMMARY | 2025-08-16 12:35 | XMS_ITS | Encounter Summary ---
Author Organization [facility] ([place], [place], [place], [place]) Address [address] [place] [address] Care Team Providers Care Patient Safety Tech Name Role Phone Tyler WIGGINS Md, Chris FARMER Unavailable [phone] Jody Ricci MD Primary Care Provider + Encounter Details Date Type Department Care Team (Latest Contact Info) Description 07/06/2025 Travel Social History Tobacco Use Types Packs/Day [...] Date Josh rded Speak language other than Setswana at home Not on file 11/14/2023 Want [...] Info) Description 07/12/2026 1:00 PM EDT Appointment [address] [address] documented as of this encounter Visit Diagnoses Not on filedocumented in this encounter Care Teams Patient Safety Tech Relationship Specialty Start Date End Date Jody Ricci MD [address] [facility] [address] [place], [place] [address] PCP - General Obstetrics and Gynecology 07/06/25 Tyler WIGGINS Md, MD Chris [address] [facility] [address] [place] [address] Referring Physician Gastroenterology 07/01/24 documented as of this encounter
--- OUTSIDE RECORDS SUMMARY | 2025-08-16 12:35 | XMS_ITS | Encounter Summary ---
Author Organization [employer] ([place], [place], [place], [place]) Address [address] [place] [address] Care Team Providers Care Residential Therapist Name Role Phone Jimi Mcdermott MD Primary Care Provider [phone] Cynthia Pink APRN Unavailable [phone] Tyler WIGGINS Md, Chris FARMER Unavailable [phone] Reason for Referral * Mammography (Routine) - Closed Specialty Diagnoses / Procedures Referred By Contac t Referred To Contact Radiology Diagnoses Visit for screening mammogram Procedures MM digital mammo screen with andressa bilateral Jimi Mcdermott MD [address] [place] [address] [place] [address] Phone: tel: fax: [facility] [address] [facility] [address] [place] [address] Phone: tel: fax: Referral ID Status Reason Start Date Expiration Date Visits Re quested Visits Authorized [id number] Closed 07/06/2025 07/06/2026 1 1 Encounter Details Date Type Department Care Team (Late st Contact Info) Description 06/24/2024 Outside Orders [facility] [address] [facility] [address] [place] [address] Jimi Mcdermott MD [address] [place] [address] [place] [address] Visit for screening mammogram (Primary [...] Date Josh rded Speak language other than Kyrgyz at home Not on file 11/14/2023 Want [...] Info) Description 07/12/2026 1:00 PM EDT Appointment [address] [address] documented as of this encounter Results * MM digital mammo screen with andressa bilateral (07/06/2025 2:27 PM EDT) Anatomical Region [...] the next mammogram. At our facility, a campo marker is positioned over a visible skin [...] interpreted, and dictated by Liliam Bertrand MD [facility] 07/07/2025 4:07 PM EDT BILATERAL SCREENING DIGITAL [...] Diagnoses Diagnosis Visit for screening mammogram- Primary Visit for screening mammogram documented in this encounter Care Teams Residential Therapist Relationship Specialty Start Date End Date Jimi Mcdermott MD [address] [place] [address] [place] [address] PCP - General General Internal Medicine 06/26/2307/05 Cynthia Pink APRN [address] [facility] [address] [place] [address] Nurse Practitioner Women's Health 06/26/23 07/05/25 Tyler WIGGINS Md, MD Chris [address] [facility] [address] [place] [address] Referring Physician Gastroenterology 07/01/24 documented as of this encounter
--- OUTSIDE RECORDS SUMMARY | 2025-08-16 12:35 | XMS_ITS | Encounter Summary ---
Author Organization [facility] Address [address] [place] [phone] Care Team Providers Care Golf Course Superintendent Name Role Phone Jimi Mcdermott MD Primary Care Provider [phone] Encounter Details Date Type Department Care Team [...] Description 12/20/2025 1:00 PM EST Office Visit [facility] [address] [place] [address] [place] [address] Jimi Mcdermott MD [address] [place] [address] [place] [address] 03/13/2026 2:30 PM EDT Office Visit [facility] GYNECOLOGY [address] [phone] Jody Ricci MD [address] [address] 06/07/2026 11:00 AM EDT Office Visit [facility] [address] [place] [address] Jimi Mcdermott MD [address] [place] [address] 06/22/2026 1:45 PM EDT Office Visit [facility] HEMATOLOGY & ONCOLOGY 3000 [facility] 155 [place] [address] Mee Banks MD 1706 [facility] 1100 [place] [address] documented as of this encounter Visit Diagnoses Not on filedocumented in this encounter Care Teams Golf Course Superintendent Relationship Specialty Start Date End Date Jimi Mcdermott MD [address] [place] [address] PCP - General Internal Medicine 08/22/16 documented as of this encounter
--- OUTSIDE RECORDS SUMMARY | 2025-08-16 12:35 | XMS_ITS | Encounter Summary ---
[facility] Address [address] [place] [phone] Care Team Providers Care Art Historian Name Role Phone Jimi Mcdermott MD Primary Care Provider [phone] Encounter Details Date Type Department Care Team (Late st Contact Info) Description 06/24/2025 Telephone [facility] PRIMARY CARE [address] [place] [address] Jimi Mcdermott MD [address] [place] [address] [place] [address] Social History Tobacco Use Types Packs/Day [...] to: Dr. Sylvia Hernandez with [facility]. She would like to see them due to her increased number of migraines shehas been having lately. TF documented in this encounter Plan of Treatment Upcoming Encounters Date Type Department Care Team (Late st Contact Info) Description 12/20/2025 1:00 PM EST Office Visit [facility]IMARY [facility] [address] [place] [address] [place] [address] Jimi Mcdermott MD [address] [place] [address] 03/13/2026 2:30 PM EDT Office Visit [facility] GYNECOLOGY 1780 [facility] 101 [place] [address] Jody Ricci MD 1780 [facility] 101 [place] [address] 06/07/2026 11:00 AM EDT Office Visit [address] [place] [address] Jimi Mcdermott MD [address] [place] [address] [place] [address] 06/22/2026 1:45 PM EDT Office Visit [facility] HEMATOLOGY & ONCOLOGY [address] [facility] [address] [place] [address] Mee Banks MD 1700 [facility] [address] [place] [address] documented as of this encounter Visit Diagnoses Not on filedocumented in this encounter Care Teams Art Historian Relationship Specialty Start Date End Date Jimi Mcdermott MD [address] [place] [address] [place] [address] PCP - General Internal Medicine 08/22/16 documented as of this encounter
--- OUTSIDE RECORDS SUMMARY | 2025-08-16 12:35 | XMS_ITS | Encounter Summary ---
[facility] Organization [facility] Address [address] [place] [phone] Care Team Providers Care Application Infrastructure Engineer Name Role Phone Jimi Mcdermott MD Primary Care Provider [phone] Encounter Details Date Type Department Care Team [...] Description 12/20/2025 1:00 PM EST Office Visit [facility] PRIMARY CARE [address] [place] [address] [place] [address] Jimi Mcdermott MD [address] [place] [address] [place] [address] 03/13/2026 2:30 PM EDT Office Visit [facility] GYNECOLOGY [address] [phone] Jody Ricci MD [address] [address] 06/07/2026 11:00 AM EDT Office Visit [facility] PRIMARY CARE [address] [place] [address] Jimi Mcdermott MD [address] [place] [address] 06/22/2026 1:45 PM EDT Office Visit [facility] HEMATOLOGY & ONCOLOGY 3000 [facility] 155 [place] [address] Mee Banks MD 1702 [facility] [address] [place] [address] documented as of this encounter Visit Diagnoses Not on filedocumented in this encounter Care Teams Application Infrastructure Engineer Relationship Specialty Start Date End Date Jimi Mcdermott MD [address] [place] [address] PCP - General Internal Medicine 08/22/16 documented as of this encounter
--- OUTSIDE RECORDS SUMMARY | 2025-08-16 12:35 | XMS_ITS | Clinical Summary ---
Author Organization [facility] Address [address] [place] [address] Care Team Providers Care Roll Over Press Operator Name Role Phone Jimi Mcdermott MD Primary Care Provider [phone] Allergies Active Allergy Reactions Criticality Noted Date [...] MG SL tabletIndication s:Coronary artery disease involving [place] coronary artery of [place] heart without angina pectoris DISSOLVE ONE TABLET [...] for this problem in the ER at [facility] in 04/[address] [...] (06/03/2025 7:25 PM EDT): {Renal Disease A/P (Optional):67231} Assessment & Plan (12/06/2024 8:06 PM EST): [...] Followed by Dr. Mcgee of cardiology in [place], having seen Dr. Mcgee's PA subsequent to [...] guidelines, EKG today deferred as obtained by application dba Dr. Mcgee in 04/2025 and reported stable, [...] Last mammogram 08/26/2023 as arranged by her pinsetter mechanic automatic. She already has another mammogram scheduled for 07/01/2024. Screening for thyroid disorder 06/01/2024 Postmenopausal 06/01/2024 Assessment & Plan (06/01/2024 12:48 PM EDT): No significant vasomotor symptoms. Scheduled for DEXA scan as arranged by her pinsetter mechanic automatic on 07/01/2024. Acute left-sided low back pain [...] Does have a history of non-STEMI with [facility] in 08/2022 unremarkable, having had suspicion of [...] office with Dr. Mcgee of cardiology in [place], most recent appointment in 04/2025, EKG at [...] CPAP machine followed by Dr. Hernandez in [place] Assessment & Plan (06/01/2024 12:48 PM EDT): Compliant with CPAP machine followed by Dr. Hernandez in [place]. Osteopenia of left hip 01/13/2023 Subclinical hypothyroidism [...] next month. Coronary artery disease invo lving [place] coronary artery of [place] heart without angina pectoris 10/11/2022 Assessment & Plan (06/03/2025 7:25 PM EDT): History of non-STEMI in 08/2022 with subsequent LHC revealing normal coronary arteries, suspected endothelial dysfunction as etiology. Taking aspirin, metoprolol, atorvastatin, and spironolactone, Plavix recently discontinued. No current cardiopulmonary complaint. Followed by the office with Dr. Mcgee of cardiology in [place], most recent appointment in 04/2025, EKG at [...] office with Dr. Mcgee of cardiology in [place], next appointment tentatively to be pursued in [...] she needs a referral to a new electronic transaction implementer, we can arrange this accordingly. Resolved Problems Problem Noted Date Diagnosed Date Resolved Date Diabetic polyneuropathy asso ciated with type 2 diabetes mellitus 01/13/2023 06/29/2025 History of [place] (myocardial infarction) 10/11/2022 11/12/2023 Encounters Date Type Department Care Team Description 07/25/2025 External PBMM Data [facility] CALL [facility]ENTER [address] [address] Pharmacy, Payor Data 06/29/2025 12:00 PM EDT Office Visit [facility] [address] [place] [address] [address] [place] [address] Jimi Mcdermott MD Migraine with aura and without status migrainosus, not intractable (Primary Dx); Dysarthria; Type 2 diabetes mellitus with stage 3a chronic kidney disease, without long-term current use of insulin; Primary hypertension 06/29/2025 Travel 06/29/2025 Refill [facility] [address] [place] [address] [address] [place] [address] Jimi Mcdermott MD 06/24/2025 Telephone [facility] [address] [place] [address] [address] [place] [address] Jimi Mcdermott MD 06/23/2025 2:30 PM EDT Office Visit [facility] HEMATOLOG[facility] & ONCOLOGY [address] [address] Mee Banks MD Macrocytosis without anemia (Primary Dx); Autoimmune hepatitis 06/23/2025 Travel 06/08/2025 Results Follow-Up [address] [place] [address] Jimi Mcdermott MD 06/03/2025 1:00 PM EDT Office Visit [address] [place] [address] Jimi Mcdermott MD Medicare annual wellness visit, subsequent (Primary Dx); Encounter for general adult medical examination with abnormal findings; Coronary artery disease involving [place] coronary artery of [place] heart without angina pectoris; Non-STEMI (non-ST elevated [...] administered 06/03/2025 Travel 05/25/2025 External PBMM Data [facility] [address] [facility] [address] [place] [address] Pharmacy, Payor Data from Last 3 Months [...] Description 12/20/2025 1:00 PM EST Office Visit [facility] [address] [place] [address] [address] [place] [address] Jimi Mcdermott MD [address] [place] [address] [place] [place] [address] 03/13/2026 2:30 PM EDT Office Visit [facility] GYNECOLOG[facility] [address] [phone] Jody Ricci MD [address] [address] 06/07/2026 11:00 AM EDT Office Visit [facility] [address] [place] [address] [place] [place] [address] Jimi Mcdermott MD [address] [place] [address] [place] [place] [address] 06/22/2026 1:45 PM EDT Office Visit [facility] HEMAT[facility] & ONCOLOGY [address] [facility] [address] [place] [address] Mee Banks MD [address] [place] [address] Health Maintenance Due Date Last Done Comments [...] 07/01/2026 07/01/2024, 01/01, 08/27/2017 MAMMOGRAM 07/06/2027 07/06/2025, 090 01/2025, 07/06/2025, Additional history exists TDAP/TD VACCINES (2 - Td or Tdap) 08/27/2031 021 Pneumococcal Vaccine 50+ Completed 08/29/2017, 1006/2016 ZOSTER VACCINE Completed 12/07/2019, 08/28/2019 HEPATITIS C SCREENING Completed 04/28/2025, 022 COVID-19 Vaccine Completed 06/03/2025, 04/2024, 08/29/2023, Additional history exists Procedures Procedure Name Priority Date/Time Associated Diagnosis Comments SCANNED - LABS 08/02/2025 POC ALBUMIN/CREATININE RATIO Routine 06/03/2025 3:08 PM [...] Recently Relevant to Health Maintenance Results * LABS SCANNED (08/02/2025) us Jimi Mcdermott MD LAB BLOOD ORDERABLES Final Res ult * POC Albumin/Creatinine Ratio Urine (06/03/2025 3:08 PM EDT) POC ALBUMIN, URINE 10 mg/L POC CREATININE, URINE 300 mg/dL POC Urine Albumin Creatinine Ratio <30 <30 Lot Number [id number] Expiration Date 06/11/2026 Urine 06/03/2025 3:08 PM EDT us Jimi Mcdermott MD POINT OF CARE TEST ORDERABLES Final Result * (ABNORMAL) Urine Culture, Routine - (06/03/2025 2:23 PM EDT) Pathologist [facility] Urine Culture Final report(A) [facility] Result 1 Klebsiella pneumoniae(A) [facility] Comment: Cefazolin with an NELLA <=16 [...] 2:23 PM EDT 06/03/2025 Comment:Urine Release to [facility] Scot [facility] (AMBULATORY) - 06/08/2025 5:07 PM EDT Performed at: - [address] [id number] Agricultural Extension Educator: Srinivasa Sosa PhD, Phone: [phone] Jimi Mcdermott MD URINE ORDERABLES Final Result [facility] (AMBULATORY) [address] [place] [address], [place] [phone] [facility] [address] [id number], [place] [phone] * (ABNORMAL) UA / M With / Rflx Culture([facility] ONLY) - Urine, Clean Catch (06/03/2025 2:23 PM EDT) [facility] Specific [place], UA 1.021 1.005 - 1.030 [facility] [...] 2:23 PM EDT 06/03/2025 Comment:Urine Release to carlos Ellison [facility] (AMBULATORY) - 06/08/2025 5:07 PM EDT Performed at: - [address] [id number] Agricultural Extension Educator: Srinivasa Sosa PhD, Phone: [phone] Jimi Mcdermott MD URINE ORDERABLES Final Result [facility] (AMBULATORY) [address] [place] [address], [facility] [address] [place] [address], * (ABNORMAL) Microscopic Examination - (06/03/2025 2:23 [...] EDT 06/03/2025 Comment:Urine Release to pat i [facility] - 06/08/2025 5:07 PM EDT Performed at: [facility] Lab[address] [id number] Agricultural Extension Educator: Srinivasa Sosa PhD, Phone: [phone] Jimi Mcdermott MD URINE ORDERABLES Final Result [facility] [address] [place] [address], [facility] [address] [place] [address], * Vitamin D,25-Hydroxy (06/03/2025 2:23 PM EDT) 25 Hydroxy, Vitamin D 68.5 30.0 - 100.0 ng/mL [facility] Comment: Vitamin D deficiency has been defined by the [place] of Medicine and an Endocrine Society practice guideline as a level of serum 25-OH vitamin D less than 20 ng/mL (1,2). The Endocrine Society went on to further define vitamin D insufficiency as a level between 21 and 29 ng/mL (2). 1. IOM ([place] of Medicine). 2010. Dietary reference intakes for calcium and D. [place]: The National Academies Press. 2. Joe MF, Sae NC, Gretchen VILLEGAS, et al. Evaluation, treatment, and prevention of vitamin D deficiency: an Endocrine Society clinical practice guideline. JCEM. 2010; 96(7):1911-30. Blood Structure of left upper limb / Unknown 06/03/2025 2:23 PM EDT 06/03/2025 Comment:Blood Release to pat i [facility] (AMBULATORY) - 06/04/2025 7:06 AM EDT Performed at: - [address] [id number] Agricultural Extension Educator: Srinivasa Sosa PhD, Phone: [phone] us Jimi Mcdermott MD LAB BLOOD ORDERABLES Final Res ult [facility] (AMBULATORY) [address] [place] [address], [place] [phone] [facility] [address] [place] [address], [place] [phone] * (ABNORMAL) CBC & Differential (06/03/2025 2:23 [...] EDT 06/03/2025 Comment:Blood Release to pat i Narrative [facility] (AMBULATORY) - 06/04/2025 7:06 AM EDT Performed at: [address] [place] [id number] Agricultural Extension Educator: Srinivasa Sosa PhD, Phone: [phone] us Jimi Mcdermott MD LAB BLOOD ORDERABLES Final Res ult Performing Organization Address [facility] Co de Phone Number [facility] ([facility] [address] [place] [address], [facility] [address] [place] [address], * TSH (06/03/2025 2:23 PM EDT) TSH 2.150 0.450 - 4.500 uIU/mL [facility] Blood Structure of left upper limb / Unknown 06/03/2025 2:23 PM EDT 06/03/2025 Comment:Blood Release to pat i Narrative [facility] (AMBULATORY) - 06/04/2025 7:06 AM EDT Performed at: [address] [id number] Agricultural Extension Educator: Srinivasa Sosa PhD, Phone: [phone] us Jimi Mcdermott MD LAB BLOOD ORDERABLES Final Res ult Performing Organization Address [facility] Co de Phone Number [facility] ([facility]) [address] [place] [address], [place] [phone] [facility] [address] [place] [address], [place] [phone] * T4, Free (06/03/2025 2:23 PM EDT) Free T4 1.11 0.82 - 1.77 ng/dL [facility] Blood Structure of left upper limb / Unknown 06/03/2025 2:23 PM EDT 06/03/2025 Comment:[facility] - 06/04/2025 7:06 AM EDT Performed at: [address] [place] [id number] Agricultural Extension Educator: Srinivasa Sosa PhD, Phone: [phone] us Jimi Mcdermott MD LAB BLOOD ORDERABLES Final Res ult Performing Organization Address [facility] Co de Phone Number [facility]) [address] [place] [address], [facility] [address] [place] [address], [place] [phone] * Folate (06/03/2025 2:23 PM EDT) Pathologist [facility] Folate >20.0 >3.0 ng/mL [facility] Comment: A serum folate concentration of less than 3.1 ng/mL is considered to represent clinical deficiency. Blood Structure of left upper limb / Unknown 06/03/2025 2:23 PM EDT 06/03/2025 Comment:Blood Release to [facility] ([facility]) - 06/04/2025 7:06 AM EDT Performed at: [address] [id number] Agricultural Extension Educator: Srinivasa Sosa PhD, Phone: [phone] us Jimi Mcdermott MD LAB BLOOD ORDERABLES Final Res ult Performing Organization Address [facility] Co de Phone Number [facility] ([facility]) [address] [place] [address], [place] [phone] [facility] [address] [place] [address], [place] [phone] * Vitamin B12 (06/03/2025 2:23 PM EDT) Pathologist [facility] Vitamin B-12 920 232 - 1,245 pg/mL [facility] Blood Structure of left upper limb / Unknown 06/03/2025 2:23 PM EDT 06/03/2025 Comment:Blood Release to [facility] (AMBULATORY) - 06/04/2025 7:06 AM EDT Performed at: 01 - [address] [id number] Agricultural Extension Educator: Srinivasa Sosa PhD, Phone: [phone] us Jimi Mcdermott MD LAB BLOOD ORDERABLES Final Res ult Performing Organization Address City/[facility]/ZIP Co de Phone Number [facility] [address] [place] [address], [place] [phone] [facility] [address] [place] [address], * (ABNORMAL) Lipid Panel (06/03/2025 2:23 PM [...] 2:23 PM EDT 06/03/2025 Comment:Blood Release to [facility] ([facility]) - 06/04/2025 7:06 AM EDT Performed at: [address] [id number] Agricultural Extension Educator: Srinivasa Sosa PhD, Phone: [phone] us Jimi Mcdermott MD LAB BLOOD ORDERABLES Final Res ult Performing Organization Address City/[facility]/ZIP Co de Phone Number [facility] (AMBULATORY) [address] [place] [address], [place] [phone] [facility] [address] [place] [address], [place] [phone] * (ABNORMAL) Comprehensive Metabolic Panel (06/03/2025 2:23 [...] 2:23 PM EDT 06/03/2025 Comment:Blood Release to [facility] shae Ellison [facility] (AMBULATORY) - 06/04/2025 7:06 AM EDT Performed at: - [address] [id number] Agricultural Extension Educator: Srinivasa Sosa PhD, Phone: [phone] Jimi Mcdermott MD LAB BLOOD ORDERABLES Final Res ult [facility] (AMBULATORY) [address] [place] [address], [facility] [address] [place] [address], * (ABNORMAL) POC Glucose, Blood (06/03/2025 2:15 PM EDT) [facility] Signature Glucose 204(A) 70 - 130 mg/dL Lot Number [id number] Expiration Date 11/16/2025 Blood 06/03/2025 2:15 PM EDT us Jimi Mcdermott MD POINT OF CARE TEST ORDERABLES Final Result * (ABNORMAL) POC Glycosylated Hemoglobin (Hb A1C) (06/03/2025 2:15 PM EDT) Hemoglobin A1C 6.3(A) 4.5 - 5.7 % [facility] Lot Number [id number] [facility] Expiration Date 01/27/2027 [facility] Blood 06/03/2025 2:15 PM EDT us Jimi Mcdermott MD POINT OF CARE TEST ORDERABLES Final Result [facility]
[address] [place] [address], * EYE EXAM SCANNED (12/09/2024) Anatomical Region [...] Hepatitis C Virus (HCV) RNA, Diagnosis, RAFAL (132206) and Hepatitis C Virus (HCV) Antibody with reflex to Quantitative Real-time PCR (337268). Blood Structure of left upper limb / Unknown 10/11/2022 12:19 PM EST 10/11/2022 Comment:Blood Release to carlos Ellison [facility] (AMBULATORY) - 10/12/2022 8:07 AM EST Performed at: - [facility] [address] [facility], [place], [place] [id number] Agricultural Extension Educator: Srinivasa Sosa PhD, Phone: [phone] us Jimi Mcdermott MD LAB BLOOD ORDERABLES Final Res ult [facility] [address] [place] [address], [facility] [address] [place] [address], * DEXA Bone Density Axial (01/10/2022 10:45 [...] fall-prevention measurements. The National Osteoporosis Foundation recommends (http://www.nof.org/hcp/practice/lqdshuhy-hyb-hkzrowbp-guidelines/clinic ans-guide) that FDA-approved medical therapies be considered [...] the left hip with 95% confidence is 0.603066 gm/cm2 at the hip and 0.717267 g/cm2 at the lumbar spine. This report [...] fall-prevention measurements. The National Osteoporosis Foundation recommends (http://www.nof.org/hcp/practice/hpaanvsh-gzs-entioapp-guidelines/clinic ans-guide) that FDA-approved medical therapies be considered [...] the left hip with 95% confidence is 0.009169 gm/cm2 at the hip and 0.200258 g/cm2 at the lumbar spine. This report was finalized on 01/10/2022 4:[address] Julio C Aguilar MD. us Rocio Gasca SEED SALES MANAGER IMG DXA ORDERABLES Radha l Result from Last 3 Months or Most Recently Relevant to Health Maintenance Insurance [facility] Medicare Advantage GROUP PPO Care Teams Roll Over Press Operator Relationship Specialty Start Date End Date Jimi Mcdermott MD [address] [place] [address] [place] [address] PCP - General Internal Medicine 08/22/16
--- OUTSIDE RECORDS SUMMARY | 2025-08-16 12:35 | XMS_ITS | Referral Summary ---
Author Organization [employer] ([place], [place], [place], [place]) Address [address] [place] [address] Care Team Providers Care Tying Machine Operator Lumber Name Role Phone Chris Scott II, Md, MD Unavailable [phone] Jody Ricci MD Primary Care Provider + Encounters Date Type Department Care Team Description 07/06/2025 Travel 07/06/2025 Outside Orders [facility] [address] [facility] [address] [place] [address] Jody Ricci MD Visit for screening mammogram (Primary Dx) 07/06/2025 1:30 PM EDT - 07/06/2025 11:59 PM EDT Hospital Encounter [facility] [address] [address] Jody Ricci MD Visit for screening mammogram Discharge Disposition: Home or Self Care from Last 3 Months Social History Tobacco [...] Date Josh rded Speak language other than Tajik at home Not on file 11/14/2023 Want [...] Info) Description 07/12/2026 1:00 PM EDT Appointment [address] [address] Procedures Procedure Name Priority Date/Time [...] the next mammogram. At our facility, a [place] marker is positioned over a visible skin [...] Brandi Pak. Transcribed by Lane Rodriguez PA-C. [facility] Services[facility] Center[facility] DXA ORDERABLES Final Resu lt from Last 3 Months or Most Recently Relevant to Health Maintenance Insurance [employer] MEDICARE PPO Care Teams Tying Machine Operator Lumber Relationship Specialty Start Date End Date Jody Ricci MD [address] [place] [address] PCP - General Obstetrics and Gynecology 07/06/25 Tyler WIGGINS Md, MD Chris [address] [facility] [address] [place] [address] Referring Physician Gastroenterology 07/01/24
--- OUTSIDE RECORDS SUMMARY | 2025-08-16 12:35 | XMS_ITS | Encounter Summary ---
[facility] Organization [facility] Address [address] [place] [address] Care Team Providers Care Operation Agent Name Role Phone Jimi Mcdermott MD Primary Care Provider [phone] Encounter Details Date Type Department Care Team (Late st Contact Info) Description 07/25/2025 External PBMM Data [facility] CALL CENTER [address] [place] [phone] Pharmacy, Payor Data Social History Tobacco Use [...] Description 12/20/2025 1:00 PM EST Office Visit [facility] PRIMARY [facility]ARE [address] [place] [address] Jimi Mcdermott MD [address] [place] [address] 03/13/2026 2:30 PM EDT Office Visit [facility] GYNECOLOGY [address] [address] Jody Ricci MD [address] [facility] [address] [place] [address] 06/07/2026 11:00 AM EDT Office Visit [facility] [address] [place] [phone] Jimi Mcdermott MD [address] [place] [address] 06/22/2026 1:45 PM EDT Office Visit [facility] HEMATOLOGY & ONCOLOGY [address] [facility] [address] [place] [address] Mee Banks MD [address] [facility] [address] [place] [address] documented as of this encounter Visit Diagnoses Not on filedocumented in this encounter Care Teams Operation Agent Relationship Specialty Start Date End Date Jimi Mcdermott MD [address] [place] [address] [place] [address] PCP - General Internal Medicine 08/22/16 documented as of this encounter
--- OUTSIDE RECORDS SUMMARY | 2025-08-16 12:35 | XMS_ITS | Clinical Summary ---
Author Organization [facility] Address [address] [id number] Care Team Providers Care Grocery Caddy Name Role Phone Jimi Mcdermott MD Primary Care Provider [phone] Social History Tobacco Use Types Packs/Day Years [...] 08/17/2025 10:00 AM EDT Ovarian Cancer Screening [facility] Gynecology [address] [facility] [place] [address] Health Maintenance Due Date Last Done Comments [facility]-Depression Screening 1950 [facility]-Infant/Child/Adol SDOH Screenings 1950 [facility]- SDOH Screenings 1968 [facility]-Adult SDOH Screenings 1968 CT Colonography 1995 Colonoscopy 1995 FIT-DNA 1995 FIT 1995 FOBT 1995 Sigmoidoscopy 1995 [facility]-Colorectal Cancer Screening 1995 [facility]-Medicare Annual Wellness (AWV) 06/01/2025 06/01/2024, 01/13/2023 [id number] Vaccine ( season) 2025 08/29/2023, 09/03/2022, 04/22/2022, Additional history exists [facility]-Influenza Vaccine (#1) 07/04/202508/09, 07/21/2023, 07/12/2022, Additional history exists [facility]-Bone Density Scan 07/01/2026 07/01/2024, 022 [facility]-Breast Cancer Screening 07/01/202606/04, 07/01/2024, 06/26/2023, Additional history exists [facility]-DTaP,Tdap,and Td Vaccines (2 - Td or Tdap) 08/27/2031 08/27/2021 [facility]-Pneumococcal Vaccine: 50+ Years Completed 08/29/2017, 08/10/2016 [facility]-Zoster Vaccines Completed 12/07/2019, 9 [facility]-Hepatitis C Screening Completed 10/11/2022 [facility]-RSV Vaccine: [...] patient's age to complete this topic [place] [place] [address] MEDICARE Care Teams Grocery Caddy Relationship Specialty Start Date End Date Jimi Mcdermott MD [address] [place] [address] [place], [place] [id number] PCP - General 03/04/22
--- NOTE | 2025-08-16 13:00 | MR_ITS ---
FINAL REPORT TECHNIQUE: Multiplanar and multisequence imaging of the brain was obtained without contrast. CLINICAL HISTORY: Migraine without aura. INCREASED MIGRAINES [id number]. DIZZINESS FINDINGS: Brain parenchymal: There is no mass effect or midline shift. There are no areas of abnormal signal intensity.The cerebellum and brainstem are without acute abnormality. Ventricles: The ventricles are symmetric in size and configuration without hydrocephalus. Extra-axial spaces: No extra-axial fluid collections. Diffusion imaging: No areas of restricted diffusion to suggest acute infarct. Flow voids: Flow voids within the major intracranial vessels are preserved. Soft tissues: Soft tissues are without acute abnormality. IMPRESSION: No acute intracranial abnormality. Reviewed, Interpreted and Dictated by Anuja Feliciano MD Transcribed by Gianna Zhou Authenticated and [facility]
== END 2025-08-16 23:59 | disposition home or self-care (01) ==
LOC: RAD 12:33
PROVIDERS: PCP Internal Medicine; Visit Provider Specialist
DX: G43.109 Migraine with aura, not intractable, without status migrainosus (principal); R29.818 Other symptoms and signs involving the nervous system
CPT/HCPCS: 70551